=== PATIENT | male | born 1975 | race Caucasian/White ===

== ENCOUNTER 2023-10-29 23:06 | Inpatient (IN) | payer BC, SELFPAY ==
[2023-10-29] VITALS (18 sets, daily range): BP systolic 61–98; BP diastolic 34–77
--- NOTE | 2023-10-29 21:00 | ED.SKININJ ---
HPI-Injury
General
Chief Complaint: Skin Problem
Source: patient
Exam Limitations: altered mental status
Time Seen by Provider: 10/29/23 20:48
Nursing documentation reviewed up to this point in time: agreed with
History of Present Illness-Injury
Is this injury a work related problem?: No
Is pt an associate of [facility]/[place]?: No
Initial Injury comments:
48-year-old male presents with pain in his right foot fever apparently was out cutting wood a few days ago believes he was bitten by an animal when pressing on him he does not state it was an animal with fur/teeth but he does think he could have
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
He apparently drove his car to the emergency room entrance and had to be carried out by staff
Has had numerous kidney stones previously
Past History
Past History
ED Past Medical History: NIDDM
Social History
Tobacco: Non-smoker
Alcohol: None
Drug: None
Review of Systems
Review of Systems
All Other Systems: Not applicable
Constitutional: Reports fever, fatigue and chills
EENT: Reports no symptoms
Respiratory: Reports no symptoms
Cardiac: Reports no symptoms
ABD/GI: Reports no symptoms
: Reports no symptoms
Musculoskeletal: Reports muscle stiffness and edema
Skin: Reports rash
Neurological: Reports dizzy and weakness
Phy Exam
Physical Exam
Physical Exam:
Physical Exam
General: Ill-appearing male
Neck: Dry lips
Heart: Tachycardia
Lungs: Crackles at the base
Abdomen: Nontender
Neuro: alert and oriented. Confused
Skin: no rash
Psychiatric: Disheveled, cooperative
Extremities: Wound to the lateral portion of the right foot streaking cellulitic changes up the calf the calf is tender and warm
Course
Orders/Labs/Results
Orders:
Orders
10/29/23 20:50
C-Reactive Protein Urgent
Comment: ADD ON
Complete Blood Count/With Diff Urgent
Comprehensive Metabolic Panel Urgent
Creatine Phosphokinase Urgent
Comment: ADD ON
Erythrocyte Sed Rate Urgent
Comment: ADD ON
Lactic Acid Urgent
Blood Culture Urgent
EDISON Source: Blood/Venous
Specimen Description:
10/29/23 20:54
Piperacillin/Tazo 4.5 Gram [Zosyn] 4.5 gram in 100 ml IV NOW
10/29/23 20:55
Acetaminophen 1000MG/100Ml [Ofirmev] 1,000 mg in 100 ml IV ONCE
Acetaminophen IV Indication:: ED Narcotic Naive Pt-ONCE
CR Chest Single View Urgent
Reason For Exam: sepsis
10/29/23 20:56
CR Foot - Right Min 3 Views Urgent
Reason For Exam: swelling
Tib/Fib, Right 2 View [CR Leg Tibia/fibula Right 2 Vw] Urgent
Comment:
Reason For Exam: swelling
10/29/23 21:03
Tetanus/Diphth/Acelpertussis [Adacel] 0.5 ml IM .ONCE ONE
10/29/23 21:04
Blood Culture Urgent
EDISON Source: Blood/Venous
Specimen Description:
0.9% Sodium Chloride 1000 ml [Nss] 3,000 ml IV BOLUS
10/29/23 21:27
CT Abd/pel Without Iv Or Oral Stat
Comment:
Reason For Exam: arf sepsis
10/29/23 22:00
Clindamycin 900 mg/50 ml [Cleocin] 900 mg in 50 ml IV Q8H
Lactated Ringers [Lr] 1,000 ml IV 125 mls/hr
Vancomycin [Vancocin] 2,000 mg 0.9% Sodium Chloride 500 ml [Nss] 500 ml IV ONCE
10/29/23 22:03
Admit/Transfer Patient As Directed
Co-Sign Provider:
Level of Care: Inpatient admission
Assign to:: ICU
Physician / Group: Otoniel
Transfer to: ICU
Diagnosis: Septic Shock Cellulitis
Reason for Hospitalization: Septic Shock Cellulitis
Expected length of stay greater than two midnights?: Yes
ELOS- Estimated Length of Stay in days: 2
I certify the patient meets the requirements for IP care: Yes
PRN Pain Medication Management As Directed
May give lesser potent ordered pain med per pt: Yes
preference::
Protocol:: Medication orders for pain may be administered in a
manner that supports deferring to patient preference
when the pt is:
- Requesting an ordered lesser potent pain medication.
Least to most potent pain medications are defined
as: acetaminophen < NSAID < tramadol < opioids
(morphine, oxycodone, hydromorphone).
- Requesting a lesser dose of the same medication IF
ORDERED.
- Requesting a less intrusive route of administration
if both routes are prescribed by the provider (PO <
IV).
10/29/23 22:04
ABG [Arterial Blood Gas] Urgent
%Oxygen/Room Air: 2l
10/29/23 22:05
Code Status As Directed
Resuscitation Status: Full Code
10/29/23 22:06
PT/INR [Prothrombin Time] Stat
PTT Stat
10/29/23 22:08
Add On- LAB Urgent
Tests Added?: ESR, CPK, CRP
10/29/23 22:15
EKG [Electrocardiogram (*1)] Stat
Reason for Study: Other
Other Reason for Exam: hypotension/shock
NORepinephrine 4 MG/250 ML [Levophed] 4 mg in 250 ml IV PER PROTOCOL
Initial dose in mcg/min, then titrate:: 2
Titrate to keep:: SBP > 90 mmHg
Titrate by mcg/min:: 1-2 mcg/min
Frequency of titrations (minutes):: 5
Maximum dose in ICU in mcg/min:: 30
Maximum dose in IMU in mcg/min:: 8
Maximum dose in IVU in mcg/min:: 4
Begin to taper infusion when:: Remained at goal for 4hrs
Taper by mcg/min:: 1-2 mcg/min
Frequency of taper (minutes) if patient maintains goal:: 30
Taper to off?: Yes
If infusion off & no longer maintaining goal:: Contact Provider
10/29/23 22:16
Venous Doppler Lwr Ext Rt [US Periph Venous LOWER Ext RT] Routine
Comment:
Reason For Exam: swelling/pain
10/29/23 22:19
Hernandez Placement- Treatment ONCE
Reason for insertion: Stage 3 or 4 Ulcer
10/29/23 22:21
UA Reflex to Culture [Urinalysis Reflex To Culture] Stat
Hernandez Catheter [Catheter- Indwelling] As Directed
Reason for insertion: I&O's Critical Care
Assess insertion reason daily.Remove if no longer applicable: Yes
10/29/23 22:25
NEPHROLOGY CONSULT Routine
Consulting Provider: Ty Rose V.
Was physician already notified: Yes
Reason for consult: ARF/acidosis
10/29/23 22:30
Sterile Water For Inj [Sterile Water For Injection 1000 ml] 1,000 ml Sodium Bicarbonate 150 meq IV 200 mls/hr
10/29/23 22:35
Consult Notification Routine
Specialty to Notify: Infectious Disease
INFECTIOUS DISEASE CONSULT Routine
Consulting Provider: Wilmar Peterson
Was physician already notified: No
Reason for consult: septis shock - cellulitis +/-gu source
10/30/23 00:00
Lactate Level [Lactic Acid] ONCE
Abnormal Lab Results
10/29/23 10/29/23 10/29/23
20:50 22:04 22:06
WBC 21.8 H 10^3/uL
(4.8-10.8)
RBC 3.47 L 10^6/uL
(4.70-6.10)
Hgb 10.5 L g/dL
(13.0-18.0)
Hct 29.3 L %
(39.0-52.0)
Abs Immat Gran (auto) 2.2 H 10^3/uL
(0-0.05)
Absolute Neuts (auto) 18.0 H 10^3/uL
(1.4-6.5)
Absolute Lymphs (auto) 0.5 L 10^3/uL
(1.2-3.4)
Absolute Monos (auto) 1.1 H 10^3/uL
(0.1-0.6)
Immature Gran % 9.9 H %
(0-0.5)
Neutrophils % 82.7 H %
(42.2-75.2)
Lymphocytes % 2.2 L %
(20.5-51.1)
ESR 84 H mm/hour
(0-20)
PT 15.3 H Sec
(11.4-14.6)
APTT 39.1 H Sec
(23.4-35.0)
pH 7.31 L
(7.35-7.45)
pCO2 33 L mmHg
(35-48)
pO2 75 L mmHg
(83-108)
HCO3 16.6 L mmol/L
(21-28)
Sodium 125 L mmol/L
(135-145)
Chloride 96 L mmol/L
(98-107)
Carbon Dioxide 15 L mmol/L
(22-30)
BUN 86 H mg/dl
(9-20)
Creatinine 5.2 H* mg/dL
(0.7-1.3)
Glucose 143 H mg/dl
(70-99)
Lactic Acid 3.2 H mmol/L
(0.7-2.0)
Creatine Kinase 1024 H U/L
(55-170)
C-Reactive Protein > 270.00 H mg/L
(0.0-10.00)
Total Protein 5.9 L g/dl
(6.3-8.2)
Albumin 3.2 L g/dl
(3.5-5.0)
10/29/23 20:50
10/29/23 20:50
Vital Signs
Initial and Last Documented VS:
Initial Vital Signs
Temp Pulse Resp Pulse Ox
103 F H 107 30 91
10/29/23 20:34 10/29/23 20:34 10/29/23 20:34 10/29/23 20:34
Last Documented Vital Signs
Temp Pulse Resp BP Pulse Ox
97.7 F 104 19 61/44 93
10/29/23 22:10 10/29/23 22:57 10/29/23 22:57 10/29/23 23:00 10/29/23 22:57
MDM/Problems Addressed
Differential Diagnosis Includes:
Sepsis, septic shock, fasciitis, respiratory failure,
MDM/Problems Addressed:
Low blood pressure, fever
Chronic conditions affecting care: DM
Acute Exacerbation and/or Progression of Chronic Illness: DM
*Radiology
Radiology exam reviewed: preliminary read by ED provider
*Pulse Oximetry
Patient hypoxic: no
*Critical Care Note
Total Time (30-74mins, 75-104mins- exclusive of procedures): 45
Update Note
Update Note:
Update patient septic shock, acute renal failure leukocytosis cultures have been ordered has passed kidney stones previously
CT scan rule out obstructing stone
Update blood pressure now in the 90s 3 L infusing antibiotics have been ordered, reviewed with hospitalist and maintenance supervisor electrical will get ABG tonight follow closely
Blood pressure still low after 3 L of saline will start norepinephrine
ED Attending Note
-
Portions of this chart may have been created with voice recognition software.� Occasional wrong word or��sound alike� substitutions may have occurred due to the inherent limitations of voice recognition software.
Discharge Plan
Departure
Patient Disposition: Admit
Date of Disposition: 10/29/23
Time of Disposition: 22:03
Admit to: ICU
Presentation/result/management discussed w/ accepting MD/DO: Hospitalist
Patient with high blood pressure during this ER visit?: No
Condition: Critical
Covid-19: Not Applicable
Discharge Problem:
Septic shock
Interventions
Interventions:
*Risk Screen - Suicide Last Done: 10/29/23 20:34
*General Assessment Last Done: 10/29/23 20:34
*Neglect/Abuse Screening Last Done: 10/29/23 20:34
ED- Fall Risk Assessment Last Done: 10/29/23 21:40
*ED COVID-19 Vaccine History Last Done: 10/29/23 20:48
ED-Skin Assessment Last Done: 10/29/23 20:48
[2023-10-29 21:07] LABS: Hematocrit 29.3 % (39.0-52.0); Hemoglobin 10.5 g/dL (13.0-18.0); Mean Corp Hgb Conc. 35.8 g/dL (33.0-37.0); Mean Corpuscular Hgb 30.3 pg (27.0-31.0); Mean Corpuscular Volume 84.4 fL (80.0-94.0); Mean Platelet Volume 9.7 fL (7.4-10.4); Platelet Count 229 10^3/uL (130-400); Red Blood Cell Count 3.47 10^6/uL (4.70-6.10); Red Cell Dist. Width 13.8 % (11.5-14.5); White Blood Cell Count 21.8 10^3/uL (4.8-10.8)
[2023-10-29] MEDS: NSS 3000 IV (21:09)
[2023-10-29] MEDS: OFIRMEV 100 IV (21:09)
[2023-10-29] MEDS: ZOSYN 100 IV (21:09)
[2023-10-29 21:10] LABS: Lactic Acid 3.2 mmol/L (0.7-2.0)
[2023-10-29 21:15] LABS: % Basophils 0.3 % (0-2); % Immature Granulocytes 9.9 % (0-0.5); % Lymphocytes 2.2 % (20.5-51.1); % Monocytes 4.9 % (1.7-9.3); % Neutrophils 82.7 % (42.2-75.2); Absolute Basophils 0.1 10^3/uL (0-0.2); Absolute Immature Granulocytes 2.2 10^3/uL (0-0.05); Absolute Lymphocytes 0.5 10^3/uL (1.2-3.4); Absolute Monocytes 1.1 10^3/uL (0.1-0.6); Nucleated Red Blood Cells % 0 % (-)
[2023-10-29 21:21] LABS: ALT (SGPT) 24 U/L (0-50); AST (SGOT) 49 U/L (17-59); Albumin 3.2 g/dl (3.5-5.0); Alkaline Phosphatase 103 U/L (38-126); Blood Urea Nitrogen 86 mg/dl (9-20); Calcium 8.4 mg/dl (8.4-10.2); Carbon Dioxide 15 mmol/L (22-30); Chloride 96 mmol/L (98-107); Glucose 143 mg/dl (70-99); Potassium 4.2 mmol/L (3.5-5.1); Sodium 125 mmol/L (135-145); Total Bilirubin 1.2 mg/dl (0.2-1.3); Total Protein 5.9 g/dl (6.3-8.2); eGFR 12.84
[2023-10-29] MEDS: VANCOCIN 540 MG IV (22:01)
[2023-10-29] MEDS: ADACEL 0.5 ML IM (22:02)
[2023-10-29 22:11] LABS: B.E. -8.8 mmol/L; HCO3 16.6 mmol/L (21-28); O2 Saturation % 96.3 % (94-98); PCO2 33 mmHg (35-48); PO2 75 mmHg (83-108); pH 7.31 (7.35-7.45)
--- NOTE | 2023-10-29 22:14 | HPS.HSE ---
Family Physician
-
Family Physician:
Chief Complaint
-
Right Foot Swelling and Pain
History of Present Illness
48yo M with PMH Pre-DM, Cervicalgia, Frequent Nephrolithiasis, HTN who presents to ER with complaint of right leg swelling/pain/erythema. Pt states that on Monday he was doing outdoor work in his yard and thinks he got bitten by unknown insect. He
states following this he developped subject fever, diaphoresis, chills, and worsening swelling/pain/erythema of right forefoot (site of insect bite) that tracked up his medial thigh over the last few days. Pain 9/10 shooting in sensation. Denies hx
MRSA in past. Denies dizziness/LH, confusion, chest pain, palps, wheezing, cough, sob. He reports kidney stones being problematic about 3 months ago, currently denying flank pain but states he is chronically on oxycodone 10mg QID prn. Denies sick
contacts or recent viral illness.
Urologist: Dr. Lacey ?[facility]
ER course: Pt presents BP 72/38, HR 107, RR 30, T 103 in multiorgan system failure. WBC 21.8K. Na 125. BUN/Cr 86/5.2. CO2 15 (ABG pending). LA 3.2. Blood cultures x 2 ordered. CXR ordered and pending. CT a/p ordered and pending. UA with reflex
ordered and pending. S/P Vancomycin, Zosyn, 3LNS Bolus and initation of levophed in ER. Admission to ICU with nephrology and intensive care notified.
Medical History
Past Medical History
Past Medical History: Reports Other (Pre-DM, Cervicalgia, Frequent Nephrolithiasis, HTN)
Past Surgical History: Reports Other (Urologic surgery for kidney stone removal)
Social History
Tobacco: Non-smoker
Alcohol: None
Drug: None
Personal:
Living: With Family
Family History
Family History: Other (Mother age 69 with CAD s/p [place], HTN. Father 'healthy')
Allergies / Home Medications
Allergies reflects when Allergies were last updated in [employer].
Home Medications with original date entered in [employer]
Allergy/Medication List:
Allergies
Allergy/AdvReac Type Severity Reaction Status Date / Time
No Known Allergies Allergy Unverified 10/29/23 20:38
Home Medications
cyclobenzaprine 10 mg tablet 10 mg PO TID PRN neck spasm 10/29/23
olmesartan 20 mg-hydrochlorothiazide 12.5 mg tablet (Benicar HCT) 1 tab PO DAILY 10/29/23
oxycodone 10 mg tablet 10 mg PO Q6H PRN severe pain 10/29/23
tamsulosin 0.4 mg capsule (Flomax) 0.4 mg PO HS 10/29/23
Review of Systems
-
A 12 point ROS was completed and negative except as noted: Yes
Physical Exam
Vital Signs
Vital Signs
Temp Pulse Resp BP Pulse Ox
103 F H 102 16 76/46 93
10/29/23 20:34 10/29/23 21:30 10/29/23 21:30 10/29/23 21:30 10/29/23 21:40
Physical Exam
General: Morbidly Obese and Other (Ill appearing. Able to follow commands without difficulty. )
HEENT: NormoCephalic, Atraumatic and Other (Dry MM. Neck supple. No JVD)
Respiratory: Clear; No Wheezes, Rales or Rhonchi
Cardiac: S1/S2 and Regular Rhythm; No Murmur
GI: Soft, Non Tender, Non Distended and Normal Bowel Sounds; No Organomegaly
Rectal: Deferred by Provider
Genito-urinary: No costovertebral tender; No Hernandez
Musculoskeletal: No Clubbing, No Cyanosis and Other (RLE forefoot with small eschar and surroundin erythema tracking to medial thigh. 2+ pitting edema with TTP. )
Skin: No Rash
Neuro: Awake, Alert, Oriented, AO x 3 and Other (Mild confusion with delay in responses or truoble recalling history. )
Psych: Calm
Laboratory Results
-
10/29/23 20:50
10/29/23 20:50
Laboratory Results
pH 7.31 (7.35-7.45) L 10/29/23 22:04
pCO2 33 mmHg (35-48) L 10/29/23 22:04
pO2 75 mmHg (83-108) L 10/29/23 22:04
HCO3 16.6 mmol/L (21-28) L 10/29/23 22:04
Lactic Acid 3.2 mmol/L (0.7-2.0) H 10/29/23 20:50
Total Bilirubin 1.2 mg/dl (0.2-1.3) 10/29/23 20:50
AST 49 U/L (17-59) 10/29/23 20:50
ALT 24 U/L (0-50) 10/29/23 20:50
Alkaline Phosphatase 103 U/L (38-126) 10/29/23 20:50
Data Reviewed
-
Diagnostic Radiology: Image Personally Visualized and interpreted
CT Scan: Image Personally Visualized and interpreted
Lab Data: Labs Reviewed by me
Old Records: Reviewed
Impression/Plan
-
Septic Shock
- +4/4 SIRS (HR 107, RR 30, Tmax 103, WBC 21.8K). BP 72/38 on admission
- LA 3.2. Blood cultures and Urine cultures pending. MRSA swab
- CXR ordered stat and pending
- CT a/p ordered stat and pending
- XR RLE pending to r/o air. If present surgical consult will be obtained
- S/P Vanco/Zosyn in ER. Continue vanco/zosyn renally dosed. Add clindamycin given acuity
- Pt full code and agreeable for pressor support. Started on levophed, management as per ICU
- Check CRP/ESR/CPK
- Consult ICU
- Consult ID
RLE Cellulitis/Wound / RLE swelling
- Unclear whether sole etiology for above
- Follow up XR studies. Consider surgical eval
- Check CRP/ESR/CPK
- Obtain Venous duplex for completeness
Acute Renal Failure
High Anion Gap Metabolic Acidosis
Hyponatremia
- BUN/Cr 86/5.2. No hx CKD
- Bicarb 15
- Na 125, ~126-127 corrected for hyperglycemia
- CPK pending
- Case D/W Nephrology. Continue Bicarbonate gtt @ 200cc/hr
- Hernandez placed for critical I&O monitoring
- UA with reflex pending
- Follow up Stat CT a/p to asssess for pathology
- Trend BMP for goal 6-8 meq/24hr improvement
Hx Nephrolithiasis
- Follow up CT a/p
- Continue flomax
- Pt reports being on 'one additional medication' that he cannot recall
Hypotension Hx Hypertension
- Hx noted. Holding Benicar HCTZ 2/2 shock
- Obtain EKG
Pre-DM
- reports last a1c 6.4 3 weeks ago with pcp
- BG 143 on admission
- SSI/accuchecks
Chronic Pain/Cervicalgia
- Holding flexeril
- Prn dilaudid for RLE pain. Avoid renally cleared medications at this time.
Diet: NPO pending scans
DVT Ppx: Heparin [id number]
Code Status: Full
[2023-10-29 22:26] LABS: INR 1.23; PT 15.3 Sec (11.4-14.6)
[2023-10-29 22:27] LABS: APTT 39.1 Sec (23.4-35.0)
[2023-10-29 22:35] LABS: Creatine Phosphokinase 1024 U/L (55-170)
[2023-10-29 22:36] LABS: Erythrocyte Sed Rate 84 mm/hour (0-20)
[2023-10-29] MEDS: LEVOPHED 250 IV (22:58)
[2023-10-29 23:07] LABS: C-Reactive Protein > 270.00 mg/L (0.0-10.00)
--- NOTE | 2023-10-29 23:28 | W.PN.SEPSIS ---
Sepsis
Vital Signs
Temp Pulse Resp BP Pulse Ox
97.7 F 104 19 61/44 93
10/29/23 22:10 10/29/23 22:57 10/29/23 22:57 10/29/23 23:00 10/29/23 22:57
Physical Exam
Physical Exam:
A focused exam was performed after fluid resuscitation.
Capillary Refill
Bilateral Upper Extremity:
Kings Time: Less than 3 sec
Bilateral Lower Extremity:
Kings Time: Less than 3 sec
Pulse Evaluation
Bilateral Radial:
Pulse Evaluation: Present
Bilateral Dorsalis Pedis:
Pulse Evaluation: Present
[2023-10-29] MEDS: SODIUM BICARBONATE 1150 MEQ IV (23:38)
[2023-10-29] MEDS: CLEOCIN 50 IV (23:38)
[2023-10-29 23:46] LABS: Glucose - Point of Care 138 mg/dl (70-99)
[2023-10-30] VITALS (61 sets, daily range): BP systolic 69–157; BP diastolic 42–140; BMI 42.7
[2023-10-30] MEDS: HEPARIN 5000 UNITS SC ×3 (00:02→22:07)
[2023-10-30] MEDS: DILAUDID 1 MG IV ×6 (00:02→22:08)
[2023-10-30 00:19] LABS: ALT (SGPT) 20 U/L (0-50); AST (SGOT) 48 U/L (17-59); Albumin 2.5 g/dl (3.5-5.0); Alkaline Phosphatase 73 U/L (38-126); Blood Urea Nitrogen 80 mg/dl (9-20); Carbon Dioxide 15 mmol/L (22-30); Chloride 102 mmol/L (98-107); Glucose 121 mg/dl (70-99); Magnesium 1.9 mg/dl (1.6-2.3); Phosphorus 3.1 mg/dl (2.5-4.5); Potassium 3.7 mmol/L (3.5-5.1); Sodium 126 mmol/L (135-145); Total Protein 4.8 g/dl (6.3-8.2); eGFR 15.69
[2023-10-30 00:23] LABS: COVID-19 Antigen Negative (Negative)
[2023-10-30 00:30] LABS: Fibrinogen 762 MG/DL (199-459)
[2023-10-30 00:45] LABS: % Basophils 0.3 % (0-2); % Eosinophils 0.1 % (0-6); % Immature Granulocytes 12.3 % (0-0.5); % Lymphocytes 3.2 % (20.5-51.1); % Neutrophils 80.1 % (42.2-75.2); Absolute Basophils 0.1 10^3/uL (0-0.2); Absolute Immature Granulocytes 2.4 10^3/uL (0-0.05); Absolute Lymphocytes 0.6 10^3/uL (1.2-3.4); Absolute Monocytes 0.8 10^3/uL (0.1-0.6); Absolute Neutrophils 15.8 10^3/uL (1.4-6.5); Nucleated Red Blood Cells % 0 % (-)
[2023-10-30 00:46] LABS: Troponin I 0.051 ng/ml
[2023-10-30 01:23] LABS: Erythrocyte Sed Rate 71 mm/hour (0-20)
[2023-10-30 01:27] LABS: Hematocrit 25.4 % (39.0-52.0); Hemoglobin 9.2 g/dL (13.0-18.0); Mean Corp Hgb Conc. 36.2 g/dL (33.0-37.0); Mean Corpuscular Volume 85.5 fL (80.0-94.0); Mean Platelet Volume 9.6 fL (7.4-10.4); Platelet Count 196 10^3/uL (130-400); Red Blood Cell Count 2.97 10^6/uL (4.70-6.10); White Blood Cell Count 19.8 10^3/uL (4.8-10.8)
--- NOTE | 2023-10-30 01:31 | PTCARENOTE ---
Pt Aox3, drowsy, diaphoretic, Afebrile, NSR on monitor, distant heart sounds, Levophed infusing per protocol, Bicarb gtt @200ml/hr, Abx. +3 LE edema to right foot and ankle. Right lateral foot with open puncture wound, with small amounts serous
drainage, cleansed and covered, elevated foot. Otherwise skin intact. C/O pain in right foot 8/10 burning, PRN medication administered. 4L NC sats 94%, lungs are diminished. Obese abdomen, firm nontender. CT of right leg completed.
[2023-10-30 02:32] LABS: Lactic Acid 0.9 mmol/L (0.7-2.0)
[2023-10-30] MEDS: ZOSYN 50 IV ×2 (03:04→07:23)
[2023-10-30 04:14] LABS: B.E. -10.3 mmol/L; HCO3 16.2 mmol/L (21-28); O2 Saturation % 97.7 % (94-98); PCO2 37 mmHg (35-48); PO2 89 mmHg (83-108); pH 7.25 (7.35-7.45)
[2023-10-30 04:18] LABS: Urine Albumin Trace (Neg - Trace); Urine Bilirubin Negative (Negative); Urine Character Clear (Clear); Urine Color Yellow; Urine Glucose Negative (Negative); Urine Ketone Negative (Negative); Urine Leukocyte Negative (Negative); Urine Nitrite Negative (Negative); Urine Occult Blood 3+ (Negative); Urine Specific Gravity 1.015 (<1.030); Urine Urobilinogen Negative (Neg - 1+)
[2023-10-30 04:38] LABS: Urine Bacteria Moderate (Negative); Urine Squamous Cell 0-2 /LPF (Few)
[2023-10-30] MEDS: LEVOPHED 250 IV ×3 (04:39→20:47)
[2023-10-30 04:44] LABS: Hematocrit 31.5 % (39.0-52.0); Hemoglobin 10.9 g/dL (13.0-18.0); Mean Corp Hgb Conc. 34.6 g/dL (33.0-37.0); Mean Corpuscular Volume 89.5 fL (80.0-94.0); Mean Platelet Volume 9.7 fL (7.4-10.4); Platelet Count 217 10^3/uL (130-400); Red Blood Cell Count 3.52 10^6/uL (4.70-6.10); White Blood Cell Count 26.3 10^3/uL (4.8-10.8)
[2023-10-30 05:11] LABS: Blood Urea Nitrogen 81 mg/dl (9-20); Calcium 7.7 mg/dl (8.4-10.2); Carbon Dioxide 18 mmol/L (22-30); Chloride 98 mmol/L (98-107); Creatine Phosphokinase 1457 U/L (55-170); Estimated Creatinine Clearance 30 ml/min; Glucose 172 mg/dl (70-99); Magnesium 2.3 mg/dl (1.6-2.3); Phosphorus 5.2 mg/dl (2.5-4.5); Potassium 4.4 mmol/L (3.5-5.1); Sodium 129 mmol/L (135-145); eGFR 17.08
[2023-10-30 05:21] LABS: Troponin I 0.035 ng/ml
[2023-10-30] MEDS: SODIUM BICARBONATE 1150 MEQ IV ×2 (05:27→11:13)
[2023-10-30 05:38] LABS: TSH 0.63 uIU/ml (0.47-4.68)
[2023-10-30] MEDS: CLEOCIN 50 IV ×3 (05:51→21:34)
--- NOTE | 2023-10-30 06:41 | PTCARENOTE ---
Pt Aox3, drowsy, C/o pain in right foot, PRN medication given. NSR on monitor, Levophed for MAP > 65. Pt c/o trouble urinating, bladder scan 800cc, straight cath for 1300cc. Trops trending down, creatinine trending down.
[2023-10-30 07:33] LABS: Glucose - Point of Care 202 mg/dl (70-99)
--- NOTE | 2023-10-30 07:46 | W.PN.HOSP.TC ---
Today's Communication/Plan
-
ID consult
Nephrology consult
Continue IV fluid support
Await reading for CT scan, Doppler ultrasound
Assessment / Plan
Assessment / Plan
Gen-AAOx3, NAD, morbid obesity
HEENT-NC, AT, anicteric, clear oral mm
Neck-supple
CV-reg, no M, +S1/S2
Lungs-clear B/L
Abd-soft, NT, ND
Ext-diffuse right lower extremity edema
Musculoskeletal-no cyanosis, clubbing
Skin-warm and dry, right lower extremity erythema, right foot dorsal wound with purulence
Neuro-grossly non-focal
Psych-calm, cooperative
Septic shock -suspected skin and soft tissue infection of right lower extremity. Unclear if he was bitten by an insect or snake. Patient did not see the organism that bit him. He was wearing flip-flops with long pants in the yard last Monday
when the event occurred. Hemodynamically improved on Levophed and vasopressin infusion. Currently in ICU. Consult lead java developer architect. Await cultures. Bandemia and leukocytosis noted. Afebrile this morning. Lactic acidosis improved. Currently on IV
vancomycin, Zosyn, clindamycin. Administered Tdap vaccine in the emergency room.
CT of right lower extremity pending. Doppler ultrasound pending. Abdominal/pelvic CT scan unremarkable.
GIORGIO -creatinine 5.2 on admission, 4.1 this morning. Continue IV fluids, currently sodium bicarbonate infusion for metabolic acidosis. Anion gap of 13 today.
Hyponatremia -sodium 125 on arrival, 129 this morning.
Normocytic anemia -unknown acuity or etiology. No evidence of hemolysis. Monitor for now. Baseline unknown.
Acute nontraumatic rhabdomyolysis -CPK 1457, continue IV fluids.
Troponin elevation -suspect acute nonischemic myocardial injury due to critical illness, septic shock.
Essential hypertension -hold antihypertensives for shock.
Chronic low back pain/chronic opiate dependence
Hx nephrolithiasis -history of stenting, nephrostomy in the past.
Diverticulosis -noted on abdominal CT.
Possible mild chronic T8/T9 partial vertebral compression fractures -noted on CT.
Morbid obesity due to excess calories
Full code
55 minutes spent in reviewing data, interviewing patient, examining patient, speaking with other staff.
Anticipated Discharge: > 48 hours
Subjective/Interval History
-
Date of Service: October 30, 2023
Patient seen and examined. No complaints currently.
Objective Data
-
Labs:
Laboratory Results
10/29/23 10/29/23 10/29/23
20:50 22:04 22:06
WBC 21.8 H
Hgb 10.5 L
Hct 29.3 L
Plt Count 229
PT 15.3 H
INR 1.23
APTT 39.1 H
HCO3 16.6 L
Sodium 125 L
Potassium 4.2
Chloride 96 L
Carbon Dioxide 15 L
BUN 86 H
Creatinine 5.2 H*
Glucose 143 H
Calcium 8.4
Total Bilirubin 1.2
AST 49
ALT 24
Alkaline Phosphatase 103
10/29/23 10/30/23 10/30/23
23:34 03:45 04:21
WBC 19.8 H 26.3 H
Hgb 9.2 L 10.9 L
Hct 25.4 L 31.5 L
Plt Count 196 217
PT
INR
APTT
HCO3 16.2 L
Sodium 126 L 129 L
Potassium 3.7 4.4
Chloride 102 98
Carbon Dioxide 15 L 18 L
BUN 80 H 81 H
Creatinine 4.4 H* 4.1 H*
Glucose 121 H 172 H
Calcium 7.0 L 7.7 L
Total Bilirubin 1.0
AST 48
ALT 20
Alkaline Phosphatase 73
Vital Signs:
Vital Signs
Temp Pulse Resp BP Pulse Ox
98.5 F 82 11 83/52 96
10/30/23 07:28 10/30/23 05:00 10/30/23 05:00 10/30/23 05:00 10/30/23 05:00
I&O
10/29/23 10/30/23 10/31/23
06:59 06:59 06:59
Intake Total 1715.2 / 2025.2 310 / 310
Output Total 1600 / 1600
Balance 115.2 / 425.2 310 / 310
Review of Systems
-
History Source: Patient
All other systems: Reviewed and negative
[2023-10-30] MEDS: PITRESSIN 100 IV (07:51)
[2023-10-30] MEDS: TYLENOL 650 MG PO ×2 (08:01→20:47)
--- NOTE | 2023-10-30 08:15 | PTCARENOTE ---
Received pt @ change of shift. Drowsy, awakens to verbal stim; oriented x3. C/O mod R foot pain- medicated w prn- see MAR. THANH, RLE weakness d/t cellulitis. SR on monitor. SPo2 96% on 4LNC. +BS abd round/obese/firm. Maintained on NPO ex
meds/sips/chips. Difficulty urinating overnight, BS/SC prn. R lower leg/foot +3 edema/hot/red. R foot dressing redressed. #18 R AC w levo gtt infusing and vaso gtt initiated-see flow sheet. #20 L FA w bicarb gtt infusing @ 200mL/hr. Pt.
instructed on how to report care concerns and call sun placed w in reach.
[2023-10-30 08:35] LABS: Amphetamines Negative (Negative); Barbiturates Negative (Negative); Benzodiazepines Negative (Negative); Buprenorphine Negative (Negative); Cocaine Negative (Negative); Marijuana Negative (Negative); Methadone Negative (Negative); Methamphetamines Negative (Negative); Opiates Positive (Negative); Phencyclidine Negative (Negative); Tricyclic Antidepressants Positive (Negative)
--- NOTE | 2023-10-30 08:37 | CON.INTV ---
Consultation
Consultation Request
Date/Time Consultation Requested: 10/29/20232325
Date/Time Consultation Performed: 10/30/2023831
Requesting Provider: Dr. Frederick
Performing Provider: Dr. Tompkins
Reason for Consultation: Septic shock
Medical History
-
Chief Complaint: Right foot pain + swelling
History of Present Illness:
48-year-old male non-smoker with past medical history of prediabetes, cervicalgia, hypertension and recurrent nephrolithiasis presents with swollen right foot that is painful. He states that he had a tree cut down in his backyard on this past
, and walked back to see the progress and believes something bit him. He has had worsening right foot swelling and pain since then. In the ER he was febrile to 103 �F, tachycardic to 107, breathing at 20-30 breaths/min, BP 72/38, and
saturating 91% on room air. Labs showed leukocytosis to 19.8, Hb 9.2, ESR 71, ABG with pH 7.31, pCO2 33, serum sodium 126, creatinine 4.4, BUN 80, serum bicarbonate 15, lactate 3.2, CK10 24, CRP >270, albumin 2.5, with negative COVID-19 antigen and
negative Lyme screen. Blood cultures were collected, with CXR showing low lung volumes without pneumonia. Right foot/tib�fib XR showed no acute osseous abnormality or foreign body. CT abdomen/pelvis showed no obstructive uropathy,
hepatosplenomegaly, descending colon/sigmoid diverticulosis and suspected old T8-[address] fractures[address] right lower extremity showed no acute osseous abnormality with diffuse soft tissue swelling with skin thickening along
the dorsum of the foot and lateral ankle with no soft tissue gas, foreign body or focal fluid collection. RLE duplex ultrasound was negative for DVT. He was given 3 L of NS 0.9%, Ofirmev, tetanus shot, Zosyn/IV vancomycin and started on Levophed
due to persistent hypotension with SBP in the 60s�70s. Patient transferred to the ICU for further care, and critical care services consulted for additional management/recommendations.
Pt seen and evaluated this AM. He continues to have marked RLE leg/foot pain. He is on levophed at 12mcg/min and vasopressin at 0.03 units/min. BP 114/69, HR 108, SpO2 97% on 2L/min NC. He is producing urine via Hernandez. He is very anxious. He
otherwise is awake, answering questions appropriately, and denies CP, JACKSON, abd pain, N/V/f/c.
PMHx: Cervicalgia, prediabetes, recurrent nephrolithiasis, hypertension
PSHx: Kidney stone removal
Past Medical History
Past Medical History: Other (above as per HPI)
Past Surgical History: Other (Above as per HPI)
Social History
Tobacco: Non-smoker
Alcohol: None
Drug: None
Personal:
Living: With Family
Family History
Family History: CAD (Mother) and Hypertension (Mother)
Allergies / Home Medications
Allergies
Allergy/AdvReac Type Severity Reaction Status Date / Time
No Known Allergies Allergy Unverified 10/29/23 20:38
Home Medications
�Medication �Instructions �Recorded �Confirmed �Last Taken �Type
cyclobenzaprine 10 mg tablet 10 mg PO TID PRN neck spasm 10/29/23 10/29/23 10/28/23 History
olmesartan 20 1 tab PO DAILY 10/29/23 10/29/23 10/28/23 History
mg-hydrochlorothiazide 12.5 mg
tablet (Benicar HCT)
oxycodone 10 mg tablet 10 mg PO Q6H PRN severe pain 10/29/23 10/29/23 10/29/23 History
tamsulosin 0.4 mg capsule (Flomax) 0.4 mg PO HS 10/29/23 10/29/23 10/28/23 History
Review of Systems
-
History Source: Patient
All other systems: Negative unless noted
Vitals / Labs / Diagnostic Testing
Vital Signs
Temp Pulse Resp BP Pulse Ox
98.5 F 82 11 83/52 96
10/30/23 07:28 10/30/23 05:00 10/30/23 05:00 10/30/23 05:00 10/30/23 08:07
Lab Data
10/30/23 04:21
10/30/23 04:21
Laboratory Results
10/29/23 10/29/23 10/30/23
22:04 22:06 03:45
PT 15.3 H
INR 1.23
APTT 39.1 H
pH 7.31 L 7.25 L
pCO2 33 L 37
pO2 75 L 89
HCO3 16.6 L 16.2 L
O2 Delivery Level
Diagnostic Testing:
Physical Exam
-
HEENT: Normocephalic and Anicteric
Cardiovascular: S1/S2 and Peripheral Edema (+2 right lower extremity edema)
Respiratory: Wheeze (negative), Rales (negative), Rhonchi (negative) and Non-Labored Respirations
GI: Soft and Distended (Abdominal obesity)
Neurology: Awake, Alert and Tremors (Negative)
Skin: Warm, Dry and Other (Right lower extremity foot with blistering along dorso-lateral surface, with lesions on dorsum of foot + distal tibia; R-foot erythema and edema)
General: Respiratory Distress (Negative), Pain (Right lower extremity/foot), Fever, Chills (negative) and Other (Anxious appearing and in pain)
Assessment
-
Assessment: 48-year-old male non-smoker with past medical history of prediabetes, cervicalgia, hypertension and recurrent nephrolithiasis presents with swollen right foot that is painful. He states that he had a tree cut down in his backyard on
this past , and walked back to see the progress and believes something bit him. He has had worsening right foot swelling and pain since then. In the ER he was febrile to 103 �F, tachycardic to 107, breathing at 20-30 breaths/min, BP 72/38,
and saturating 91% on room air. Labs showed leukocytosis to 19.8, Hb 9.2, ESR 71, ABG with pH 7.31, pCO2 33, serum sodium 126, creatinine 4.4, BUN 80, serum bicarbonate 15, lactate 3.2, CK10 24, CRP >270, albumin 2.5, with negative COVID-19 antigen
and negative Lyme screen. Blood cultures were collected, with CXR showing low lung volumes without pneumonia. Right foot/tib�fib XR showed no acute osseous abnormality or foreign body. CT abdomen/pelvis showed no obstructive uropathy,
hepatosplenomegaly, descending colon/sigmoid diverticulosis and suspected old T8-[address] fractures[address] right lower extremity showed no acute osseous abnormality with diffuse soft tissue swelling with skin thickening along
the dorsum of the foot and lateral ankle with no soft tissue gas, foreign body or focal fluid collection. RLE duplex ultrasound was negative for DVT. He was given 3 L of NS 0.9%, Ofirmev, tetanus shot, Zosyn/IV vancomycin and started on Levophed
due to persistent hypotension with SBP in the 60s�70s. Patient transferred to the ICU for further care, and critical care services consulted for additional management/recommendations.
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
Impression:
#Circulatory shock likely due to sepsis from RLE cellulitis; his pain is out of proportion to exam which is suspicious for underlying soft tissue infection vs necrotizing fasciitis
#GIORGIO
#Acute respiratory failure with hypoxia likely due to sepsis with acute organ dysfunction
#Anemia
#Metabolic acidosis with increased anion gap
#Hyponatremia likely due to prerenal GIORGIO
#Rhabdomyolysis
#Elevated troponin (peaked at 0.051 on 10/30/2023)
#Lactic acidosis - normalized
#Hepatosplenomegaly
#Obesity (BMI: 42.7)
#Prediabetes mellitus (HbA1c: 6.3) with hyperglycemia
Plan:
- Continue antibiotics currently on IV vancomycin + Zosyn
- ID on board and recs appreciated
- Recommend surgical evaluation for debridement with washout, cultures and evaluation for necrotizing fasciitis
- Pain control
- Patient is prescribed prn oxycodone at home; I will restart this at 5 mg q6hr
- Wound care
- Continue vasopressors with Levophed and vasopressin and wean as tolerated to maintain MAP >65
- Maintain SpO2 >90-94% with supplemental oxygen and wean as tolerated
- prn nebulized bronchodilators
- Trend creatinine
- Renally dose all medication/ABx
- Nephrology on board, recommendations appreciated
- Continue with bicarb infusion, currently at 200cc/hr
- Trend serum HCO3 level and blood gas to assess pH
- Trend CPK
- Transfuse if needed to keep Hb >7g/dL, plt>50k
- Replete electrolytes with K>4, Mg>2
- Maintain euglycemia with goal BG 140-180 with moderate resistance ISS
- Incentive spirometer
- DVT ppx
Critical care statement: A total of 41 minutes of critical care time was provided for this patient today. This includes management of unstable vital signs, evaluation of the patient at bedside, reviewing the patient's pertinent medical records
including radiographs, microbiology, laboratory evaluations, and discussion with primary team, consultants, pharmacy, nutrition, physical therapy, case management, charge nurse, critical care nursing, and respiratory therapy.
Data:
CT right lower extremity 10/30/2023:
No acute osseous abnormality.
Diffuse soft tissue swelling throughout the lower extremity with skin thickening along the dorsum of the foot and lateral ankle likely representing cellulitis. No soft tissue gas, radiopaque foreign body, or focal fluid collection.
[2023-10-30 08:45] LABS: Fentanyl, Urine Negative (Negative)
--- NOTE | 2023-10-30 09:23 | PHA.VAN.IN ---
Addendum entered and electronically signed by Coral Conley [facility] 10/30/23 19:27:
Random level = 11.1. Will re-dose vancomycin 1500mg
Addendum entered and electronically signed by Katherine Yang [facility] 10/30/23 16:02:
Vanc random not yet returned. Discussed with chem lab and having difficulties with analyzer - might be available in about another hour.
Repeat random level pre-emptively ordered for AM labs
Original Note:
Assessment
- Assessment
Renal Function: Unknown baseline (GIORGIO SCR 5.2-->4.1)
Maximum Temperature: 103 F - ORAL - 10/28 20:34
Concomitant Antimicrobials: piperacillin/tazobactam, clindamycin
Receiving Norepinephrine and Vasopressin
Plan
- Plan
Initial / Loading Dose: 2000mg - 10/28 22:01
Maintenance Regimen: dosing by level
Monitoring: random today at 1200 to assess if additional dosing required
Pharmacokinetics Vancomycin I
- -
Patient Age: 48
Patient Sex: Male
Vancomycin Day #: 1
Indication: Skin And Soft Tissue
Requesting Provider: Dr. Doe Frederick
Pertinent Antimicrobial Allergies:
NKDA
Height / Weight:
Height 5 ft 10 in
Actual Weight 135.1 kg
Pertinent Past Medical History: BMI ~43
- Vital Signs / Lab Results
Temp Pulse Resp BP Pulse Ox
98.5 F 82 11 83/52 96
10/30/23 07:28 10/30/23 05:00 10/30/23 05:00 10/30/23 05:00 10/30/23 08:07
Lab Results - Hematology
10/29/23 10/29/23 10/30/23
20:50 23:34 04:21
WBC 21.8 H 19.8 H 26.3 H
Lab Results - Chemistry
10/29/23 10/29/23 10/30/23
20:50 23:34 04:21
BUN 86 H 80 H 81 H
Creatinine 5.2 H* 4.4 H* 4.1 H*
Estimated Creat Clear 30
Albumin 3.2 L 2.5 L
10/29/23 10/30/23
20:50 02:05
Lactic Acid 3.2 H 0.9
Lab Results - Urine
10/30/23
04:06
Urine Nitrite (Reflex) Negative
Leukocyte Esterase Rfl Negative
Urine WBC (Reflex) 3-5
Ur Squamous Epith Cells 0-2
Urine Bacteria (Reflex) Moderate A
--- NOTE | 2023-10-30 09:32 | W.PN.UPDATE ---
Update Note
Progress Note Update
HPI:
Mr Rojas is a 48 year old male with history notable for recurrent nephrolithiasis, chronic pain on oxycodone 10 mg QID PRN, class III obesity. He is not known to be diabetic. He presented to the ER on 10/28 for right leg swelling, pain and
erythema that began on 10/23 while doing yard work, believes he was bitten/stung by an insect. Reports later that same day with markedly increased pain, erythema, swelling in his foot. He tells me he was having fevers and chills at that point as
well. Called his and said he thought he needed to go to the ER, she discouraged the idea and he decided not to go. He felt poorly enough that he stopped eating and drinking that day. Did not seek medical care. felt some improvement
and worked a double shift. Then again felt poorly with progressive redness, swelling tenderness, anorexia until he presented here when he progressed to subjective fevers, chills, sweats and increasing pain and erythema tracking up the medial thigh
along with increasing pain. No: chest pain, palpitations, cough or shortness of breath. Of note although he richa
In the ER patient was found to have unstable vitals with BP 72/38, HR 107, RR 30, T 103.0 orally. He was bolused 3L NS and levophed was started. Labs were remarkable for WBC 21.8, hgb 10.5, plt 229, L shift, no eos on the diff, esr 84, Na 125,
BUN 86 Cr 5.2 (unknown baseline). CO2 15, pH 7/3, PCO2 33, pO2 75, HCO3 16, Ca initially 8.2 then 7.0 uncorrected LA 3.2 now down to 0.9. T bili 1.2, ast 49, alt 24, alk phos 103, ck 1024, crp >270, trop 0.05, ua Blood cultures x 2 ordered. CXR
ordered and pending. CT a/p ordered and pending. UA with reflex ordered and pending. S/P Vancomycin, Zosyn, 3LNS Bolus and initiation of Levophed in ER and later with the addition of vasopressin. Patient initially started on vancomycin, zosyn and
clindamycin. Givne tdap in the ER. Admitted to ICU. Since then norepi dose peaked at 16 mcg/min overnight, now down to 0.8, remains on vasopressin, WBC has increased to 26.3, hgb 10.9, plt 217, L shift has persisted, esr was repeated and 71, pt
15, inr 1.2, fibrinogen 760, abg this am pH 7.25, cod 37, po2 89, hco3 16, Na now 129, cr 4.1, repeat LFTS are planned this afternoon, repeat CK now 1457, UDS + opiated, oxy, tricyclics, lyme serology pending, covid ag neg, CT leg without contrast:
Diffuse soft tissue swelling throughout the lower extremity with skin thickening along the dorsum of the foot and lateral ankle likely representing cellulitis. No soft tissue gas, radiopaque foreign body, or focal fluid collection, a peripheral
vascular US has been done and the read is pending, CT a/p without contrast: no renal obstruction, HSM and diverticulosis noted, tib/fib xray, and foot xray: no foreign body, CXR: low lung volumes no infiltrates on my read, blood cultures x2 are in
progress, a mrsa screen is in progress, urine culture is pending
PE:
Gen: nontoxic, awake and alert
CV: S1/S2 no murmurs, gallops or rubs
Pulm: CTA bilaterally
Ext: Right lower extremity swollen 1+ edema, mildly erythematous, streaky lymphangitic spread - pink, no tender inguinal lymph nodes, bullae and bruising on the lateral aspect of the foot; small wound on the dorsal foot, there is a chronic raised,
dark scar that patient reports is unchanged. No crepitus Pain is not out of proportion. Area is tender.
Labs:
most notable for
WBC 26
hgb 10
Cr 4.1 crcl 30
na 129
a1c 6.3
CK now 1457
A&P
48 year old male with history relevant for chronic pain on a relatively high dose of oxycodone, obesity chronically presenting for severe pain, redness, swelling, tenderness in the RLE progressing over about a week, in shock. Physical exam without
crepitus or pain out of proportion to physical findings but with notable swelling. Pain is
Septic Shock
Suspected Necrotizing fascitis
MSOF
Rhabdomyolysis - progressive
GIORGIO
Class III Obesity
- blood cultures x2 are in progress - no growth to date
- CT leg without soft tissue gas
- elevated CK concerning for muscluar involvement
- requested surgical consultation with concern for possible necrotizing fasciitis - patient may benefit from washout/cultures
- agree with clindamycin at present dose
- agree with vancomycin - appreciate pharmacy assistance with dosing
- switch zosyn to meropenem 500 mg IV q8hrs
- patient is critically ill with some interval improvement in pressor requirements
- discussed with Dr Briones surgery and Dr Turner randall same day - appreciate their input
- follow clinically
[2023-10-30 10:56] LABS: Glycohemoglobin (HgbA1c) 6.3 % (4.0-5.6)
--- NOTE | 2023-10-30 11:00 | PTCARENOTE ---
Pt. bladder scan'd for 1015mL. Inserted Hernandez catheter per orders and drained 1450 urine initially. Vaso gtt remains on; levo gtt tapered per orders- see flow sheet. Weaned to 2LNC, tolerating wean. C/O severe R foot pain- medicated w PRN- see
MAR. Remains bedrest w call sun in reach.
--- NOTE | 2023-10-30 11:45 | WOUNDNOTE ---
WON RN note: Patient admitted with septic shock.
See H&P for complete history.
PMH:NIDDM, kidney stones removal.
Wound Location and type/assessment: Patient admitted with: R dorsal foot full thickness ulcer with lateral foot blister and evolving bruising/edema. Patient states he was standing by a wood pile helping a friend clean up a fallen tree. Patient
thinks he was bitten by a bug or something else, did not see what it was. Dr. Murphy on consult, reviewed the above with her and medical student, approved local wound care and Sudhakar wrap as tolerated. Assessed foot later on along with Dr. Bowles
and DISPATCHER SERVICE Stephen, concern for necrotizing fasciitis. Plan is for I&D in OR today per Dr. Bowles, wound cultures to be done in OR.
Appetite: NPO.
Pressure redistribution devices in place: [facility]. Leg elevated with pillows.
Plan: Local wound care done, held off on compression per Dr. Gardner, for OR later today. Will follow peripherally and assist surgical team as needed. Updated nurse, and care plan, further wound care orders per Dr. Gardner.
Note to case management of equipment requested for discharge: TBD
Recommend follow up with surgeon.
--- NOTE | 2023-10-30 12:37 | CON.GS ---
Addendum entered and electronically signed by Markel Bowles MD 10/30/23 13:29:
I saw and examined the patient independently.
The Printing Machinist's note was reviewed and I agree with the note, assessment and plan except where noted below.
Comment: This is a 48-year-old male prediabetic, who presents with a 6-week history of worsening right foot pain and edema in the setting of some tree work around his house being done though he cannot recall acute injury to his foot during the
process. He states that the wound has been getting worse and his asked him to come into the hospital sooner but he thought it would get better on its own. There is significant swelling on the right lower extremity with erythema or reaching up
to the inner medial thigh. There is no crepitus or dishwater colored fluid or discharge. There is a fairly significant blister to the right lateral aspect of the foot and significant tenderness over the forefoot. He is febrile, tachycardic, in
renal failure and has a leukocytosis to 26,000. No lactate. He has been started on clindamycin and meropenem per infectious disease.
The patient at the very least has a necrotizing soft tissue infection, though necrotizing fasciitis cannot be ruled out at this time. He did have a CT scan which was fairly unremarkable but clinically he has sepsis.
Will plan for operative debridement today.
N.p.o., IV fluids, continue IV antibiotics.
Risks/Benefits/Alternatives, expected postoperative course and possible complications (bleeding, infection, injury to surrounding structures, acute/chronic pain) discussed at length. Patient wishes to proceed with surgery. All questions answered.
Consent obtained.
I spent roughly 60 minutes in total for the care of this patient today including direct patient care and counseling, reviewing labs, imaging, coordination of care, as well as documentation
Original Note:
Consultation
-
Date/Time Consultation Requested: 10/30/23 1129
Requesting Provider: Jeffrey
Reason for Consultation: possible nech fash RLE
Medical History
-
Chief Complaint: right foot pain
History of Present Illness:
Mr Rojas is a 48 yo male with a history of pre-diabetes (A1c is 6.3) and renal calculi with ureteroscopy in the past who notes a 6 day history of right foot pain and worsening edema with erythema. He notes that there was some tree work being done at
his house around the time symptoms started and he did assist with clean up but does not recall injuring his foot in the process. The right foot is edematous with a wound to the dorsum of the foot with erythema ascending up to the groin. There is
pooling of fluid/blood at the lateral malleolus with purple tissue noted dependently. The wound itself is crusted and without active drainage. He notes significant pain with any palpation to the foot itself but no pain to the thigh or calf with
palpation. Febrile to 103 last night with low grade temp currently to 99.6.
Past Medical History
Past Medical History: HTN, NIDDM (Pre-diabetic) and Other (Cervicalgia, nephrolithiasis)
Past Surgical History: Urological (ureteroscopy for calculi)
Social History
Tobacco: Non-Smoker
Personal:
Living: With Family
Family History
Family History: Reviewed & Not Pertinent and CAD (mother)
Allergies / Home Medications
Allergy/AdvReac Type Severity Reaction Status Date / Time
No Known Allergies Allergy Unverified 10/29/23 20:38
�Medication �Instructions �Recorded �Confirmed �Type
cyclobenzaprine 10 mg tablet 10 mg PO TID PRN neck spasm 10/29/23 10/29/23 History
olmesartan 20 1 tab PO DAILY 10/29/23 10/29/23 History
mg-hydrochlorothiazide 12.5 mg
tablet (Benicar HCT)
oxycodone 10 mg tablet 10 mg PO Q6H PRN severe pain 10/29/23 10/29/23 History
tamsulosin 0.4 mg capsule (Flomax) 0.4 mg PO HS 10/29/23 10/29/23 History
Review of Systems
-
History Source: Patient
All other systems: Negative unless noted
A 10 point review of systems was completed, and was negative except as per HPI.
Physical Exam
Vital Signs
Temp Pulse Resp BP Pulse Ox
99.6 F 91 11 117/74 94
10/30/23 11:00 10/30/23 11:00 10/30/23 11:00 10/30/23 11:00 10/30/23 11:00
10/29/23 10/30/23 10/31/23
06:59 06:59 06:59
Actual Weight 135.1 kg
Body Mass Index (BMI) 42.7
Lab Results
10/30/23 04:21
WBC 26.3 10^3/uL (4.8-10.8) H 10/30/23 04:21
Hgb 10.9 g/dL (13.0-18.0) L 10/30/23 04:21
Hct 31.5 % (39.0-52.0) L 10/30/23 04:21
Plt Count 217 10^3/uL (130-400) 10/30/23 04:21
Abs Immat Gran (auto) 2.4 10^3/uL (0-0.05) H 10/29/23 23:34
Neutrophils % 80.1 % (42.2-75.2) H 10/29/23 23:34
Physical Exam
General: Other (Ill appearing); Negative Comfortable
HEENT: Normocephalic and Anicteric
Respiratory: Non Labored Respirations
GI: Soft and Obese
Skin: Warm and Other (Ascending erythema from the right foot to the groin. Edema up to the mid calf. Wound to dorsum of right foot with crusting. Lateral malleolus into heel with pooling blood/purple tissue)
Neuro: Awake, Alert and AO x 3
Data Reviewed
-
CT Scan: Image Personally Visualized and interpreted, Report Reviewed by me, Discussed with Physician, Discussed with Nurse and Discussed with Patient
Labs: Labs Reviewed by me, Discussed with Physician and Discussed with Patient
Assessment / Plan
-
48 yo prediabetic male (a1c 6.3) presenting with pain/edema to RLE beginning on 10/24/23 after doing yard work although does not recall an injury at the time. Edema to foot and calf with crusted wound to dorsum of foot and ascending erythema to groin
with purplish black tissue to lateral ankle.
Currently in ICU for management of metabolic acidosis and sepsis. CRP >270 with rising WBC counts overnight (21.8-26.3) despite antibiotics. Metabolic acidosis persists and worsening (pH 7.31 to 7.25) currently on bicarb drip. Febrile to 103 last
night, now temp of 99.6. Hypotension necessitating IV pressors with levophed.
CT with IV contrast of the extremity with diffuse soft tissue swelling throughout the lower extremity with skin thickening along the dorsum of the foot and lateral ankle. No soft tissue gas, radiopaque foreign body, or focal fluid collection.
Exam and clinical deterioration concerning for necrotizing skin infection
--NPO for OR today for excision and debridement of the right foot
--Wound care following with us
--ABX as per ID
--Medical management as per ICU team
[2023-10-30 12:44] LABS: Glucose - Point of Care 154 mg/dl (70-99)
--- NOTE | 2023-10-30 13:00 | CON.ID ---
Addendum entered and electronically signed by Oanh Murphy MD 10/30/23 16:05:
HPI:
Mr Rojas is a 48 year old male with history notable for recurrent nephrolithiasis, chronic pain on oxycodone 10 mg QID PRN, class III obesity. He is not known to be diabetic. He presented to the ER on 10/28 for right leg swelling, pain and
erythema that began on 10/23 while doing yard work, believes he was bitten/stung by an insect. Reports later that same day with markedly increased pain, erythema, swelling in his foot. He tells me he was having fevers and chills at that point as
well. Called his and said he thought he needed to go to the ER, she discouraged the idea and he decided not to go. He felt poorly enough that he stopped eating and drinking that day. Did not seek medical care. felt some improvement
and worked a double shift. Then again felt poorly with progressive redness, swelling tenderness, anorexia until he presented here when he progressed to subjective fevers, chills, sweats and increasing pain and erythema tracking up the medial thigh
along with increasing pain. No: chest pain, palpitations, cough or shortness of breath. Of note although he richa
In the ER patient was found to have unstable vitals with BP 72/38, HR 107, RR 30, T 103.0 orally. He was bolused 3L NS and levophed was started. Labs were remarkable for WBC 21.8, hgb 10.5, plt 229, L shift, no eos on the diff, esr 84, Na 125,
BUN 86 Cr 5.2 (unknown baseline). CO2 15, pH 7/3, PCO2 33, pO2 75, HCO3 16, Ca initially 8.2 then 7.0 uncorrected LA 3.2 now down to 0.9. T bili 1.2, ast 49, alt 24, alk phos 103, ck 1024, crp >270, trop 0.05, ua Blood cultures x 2 ordered. CXR
ordered and pending. CT a/p ordered and pending. UA with reflex ordered and pending. S/P Vancomycin, Zosyn, 3LNS Bolus and initiation of Levophed in ER and later with the addition of vasopressin. Patient initially started on vancomycin, zosyn and
clindamycin. Givne tdap in the ER. Admitted to ICU. Since then norepi dose peaked at 16 mcg/min overnight, now down to 0.8, remains on vasopressin, WBC has increased to 26.3, hgb 10.9, plt 217, L shift has persisted, esr was repeated and 71, pt
15, inr 1.2, fibrinogen 760, abg this am pH 7.25, cod 37, po2 89, hco3 16, Na now 129, cr 4.1, repeat LFTS are planned this afternoon, repeat CK now 1457, UDS + opiated, oxy, tricyclics, lyme serology pending, covid ag neg, CT leg without contrast:
Diffuse soft tissue swelling throughout the lower extremity with skin thickening along the dorsum of the foot and lateral ankle likely representing cellulitis. No soft tissue gas, radiopaque foreign body, or focal fluid collection, a peripheral
vascular US has been done and the read is pending, CT a/p without contrast: no renal obstruction, HSM and diverticulosis noted, tib/fib xray, and foot xray: no foreign body, CXR: low lung volumes no infiltrates on my read, blood cultures x2 are in
progress, a mrsa screen is in progress, urine culture is pending
PE:
Gen: nontoxic, awake and alert
CV: S1/S2 no murmurs, gallops or rubs
Pulm: CTA bilaterally
Ext: Right lower extremity swollen 1+ edema, mildly erythematous, streaky lymphangitic spread - pink, no tender inguinal lymph nodes, bullae and bruising on the lateral aspect of the foot; small wound on the dorsal foot, there is a chronic raised,
dark scar that patient reports is unchanged. No crepitus Pain is not out of proportion. Area is tender.
Labs:
most notable for
WBC 26
hgb 10
Cr 4.1 crcl 30
na 129
a1c 6.3
CK now 1457
A&P
48 year old male with history relevant for chronic pain on a relatively high dose of oxycodone, obesity chronically presenting for severe pain, redness, swelling, tenderness in the RLE progressing over about a week, in shock. Physical exam without
crepitus or pain out of proportion to physical findings but with notable swelling. Pain is
Septic Shock
Suspected Necrotizing fascitis
MSOF
Rhabdomyolysis - progressive
GIORGIO
Class III Obesity
- blood cultures x2 are in progress - no growth to date
- CT leg without soft tissue gas
- elevated CK concerning for muscluar involvement
- requested surgical consultation with concern for possible necrotizing fasciitis - patient may benefit from washout/cultures
- agree with clindamycin at present dose
- agree with vancomycin - appreciate pharmacy assistance with dosing
- switch zosyn to meropenem 500 mg IV q8hrs
- patient is critically ill with some interval improvement in pressor requirements
- discussed with Dr Briones surgery and Dr Turner randall same day - appreciate their input
- follow clinically
AW
Original Note:
Documented by User: Juanita Cody MD, Resident 10/30/23 13:44
Chief Complaint / Past History
Chief Complaint
Septic shock, Cellulitis
History of Present Illness
48-year-old male with history of obesity, who presents with painful red swollen right foot, with fever/chills, generalized weakness. 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
days prior to presentation). He does not recall specific localized pain/itchiness in the moment (while working), but recalls bilateral numbness in both feet later in the day, which progressed to unilateral R foot pain. Intermittent fever and chills
started the day after this incident in the [employer]. Since onset, he has had moments/days when he felt well enough to go to work and participate in his usual activity. No sick contacts or recent illness. He was able to drive himself to the ED, but was
helped out of his car by ED staff.
He recalls a similar presentation about 14 years ago, when he was doing work in the same location and lifted a piece of wood, noting what he thinks might have been a small snake in the area. He does not recall being bit, but he noted generalized
numbness and weakness x 1 day, which completely resolved with rest by the next day.
upon arrival, he was febrile 103 F, hypotensive 72/38, tachycardic 107, tachypneic 30, SPO2 91%, with WBC 21.8 + left shift, sodium 125, BUN 86, creatinine 5.2, bicarb 15, lactate 3.2, CRP 270, CPK 1024. In the ED he was started on Zosyn,
vancomycin, clindamycin, and was given a Tdap shot.
Past History
Past Medical History: HTN and Other (recurrent nephrolithiasis, cervicalgia)
Past Surgical History: None
Additional Past Surgical History:
Urologic surgery for nephrolithiasis
Allergy History:
Allergies
Allergy/AdvReac Type Severity Reaction Status Date / Time
No Known Allergies Allergy Unverified 10/29/23 20:38
Home Medications
cyclobenzaprine 10 mg tablet 10 mg PO TID PRN neck spasm 10/29/23
olmesartan 20 mg-hydrochlorothiazide 12.5 mg tablet (Benicar HCT) 1 tab PO DAILY 10/29/23
oxycodone 10 mg tablet 10 mg PO Q6H PRN severe pain 10/29/23
tamsulosin 0.4 mg capsule (Flomax) 0.4 mg PO HS 10/29/23
Social History
Tobacco: Non-Smoker
Alcohol: None
Drug: None
Personal:
Living: With Family
Employment: Employed
Family History
Family History: Not Pertinent
Review of Systems
Review of Systems
General: Negative Fever
Musculoskeletal: Joint Pain and Myalgias
Skin / Hair / Nails: Other (Redness, swelling, pain in RLE)
Vital Signs
Temp Pulse Resp BP Pulse Ox
99.6 F 91 11 117/74 94
10/30/23 11:00 10/30/23 11:00 10/30/23 11:00 10/30/23 11:00 10/30/23 11:00
Physical Exam
Physical Exam
Constitutional: No Acute Distress and Comfortable
Cardiovascular: Regular Rate and S1/S2; Negative Murmur or Rub
Pulmonary: Clear and Non Labored; Negative Wheezes, Rales or Rhonchi
Gastrointestinal: Soft and Non Tender
Skin: Warm and Other (1cm circular superficial wound with purulent coating, violaceous rim on dorsum of right foot. Bullae noted on dorsum of right foot. Diffuse swelling, warmth, tenderness and mild erythema of R Foot and leg, with streaking going
up medial aspect of leg. No crepitus. Old pink scar on anterior R panda. )
Neurological: Awake, Alert and Other (sensation and motor function of R foot normal)
Lab / Diagnostic Study Results
10/30/23 04:21
Abs Immat Gran (auto) 2.4 10^3/uL (0-0.05) H 10/29/23 23:34
Absolute Neuts (auto) 15.8 10^3/uL (1.4-6.5) H 10/29/23 23:34
Absolute Lymphs (auto) 0.6 10^3/uL (1.2-3.4) L 10/29/23 23:34
Absolute Monos (auto) 0.8 10^3/uL (0.1-0.6) H 10/29/23 23:34
Absolute Basos (auto) 0.1 10^3/uL (0-0.2) 10/29/23 23:34
Immature Gran % 12.3 % (0-0.5) H 10/29/23 23:34
Neutrophils % 80.1 % (42.2-75.2) H 10/29/23 23:34
Lymphocytes % 3.2 % (20.5-51.1) L 10/29/23 23:34
Monocytes % 4.0 % (1.7-9.3) 10/29/23 23:34
Eosinophils % 0.1 % (0-6) 10/29/23 23:34
Basophils % 0.3 % (0-2) 10/29/23 23:34
ESR 71 mm/hour (0-20) H 10/29/23 23:34
PT 15.3 Sec (11.4-14.6) H 10/29/23 22:06
INR 1.23 10/29/23 22:06
Lactic Acid 0.9 mmol/L (0.7-2.0) 10/30/23 02:05
C-Reactive Protein Cancelled 10/29/23 21:54
Ur Squamous Epith Cells 0-2 /LPF (Few) 10/30/23 04:06
Microbiology Results
Micro:
10/30/23 04:06 Urine Culture - Pending
Urine
10/29/23 23:34 MRSA Screen - Pending
Nose
10/29/23 21:04 Blood Culture - Pending
Blood/Venous
10/29/23 20:50 Blood Culture - Pending
Blood/Venous
Assessment / Plan
Sepsis secondary to suspected necrotizing fasciitis of R Leg and foot.
-Right lower extremity CT showed soft tissue swelling and dorsum of foot no bony joint involvement/soft tissue gas/acute osseous abnormality. Peripheral vascular ultrasound -no evidence of DVT.
-Concern for necrotizing fasciitis given clinical picture and physical exam. Elevated/uptrending CPK, elevated creatinine, bullae noted on physical exam in addition to usual cellulitic features. LRINEC score 12 points - High suspicion for
Necrotizing fasciitis.
-Blood cultures x2, Urine Cx, MRSA screen pending
-Surgical consult
-Discussed with surgical team, pt to be prepped for surgical debridement. Requested aerobic and anaerobic specimen cultures from OR
-Discontinue Zosyn, Start Meropenem 500mg IV Q8
-Continue Clindamycin 900mg IV Q8, and Vancomycin
Critically ill patient. Will continue to follow

Documented by User: Oanh Murphy MD 10/30/23 16:05
Consultation
-
Date/Time Consultation Requested: 10/29/23 22:35
Date/Time Consultation Performed: 10/30/23 9:35
Requesting Provider: Dr Frederick
Performing Provider: Dr Murphy
Reason for Consultation: cellulitis
--- NOTE | 2023-10-30 13:05 | VATNOTE ---
PICC placed without difficulty, but imaging showed that catheter is going up pt's neck. Redirect attempted twice, unsuccessful both times. Stove Installer in room at time of Xray and IR consulted. Spoke w/ RN in IR and made aware of issue. Plan is for
pt to go to IR before OR time at 1430. Will continue to monitor.
[2023-10-30] MEDS: OFIRMEV 100 IV (13:51)
[2023-10-30] MEDS: ATIVAN 0.25 MG IV (13:55)
[2023-10-30] MEDS: NOVOLOG FLEXPEN-MODERATE RESISTANCE 1 UNITS SC (13:55)
[2023-10-30] MEDS: NSS (PRESERVATIVE FREE) 0.125 ML IV (13:55)
[2023-10-30] MEDS: MERREM 500 MG IV ×2 (13:56→20:13)
[2023-10-30] MEDS: STERILE WATER FOR INJECTION 10 ML IV ×2 (13:56→20:13)
[2023-10-30 14:24] LABS: Lactic Acid 1.7 mmol/L (0.7-2.0)
[2023-10-30 14:39] LABS: Lyme Antibody Screen, EIA Negative (Negative)
--- NOTE | 2023-10-30 14:39 | CM ---
CM following re: discharge planning.
Reviewed pt's chart, met with pt.
Pt is a 48 year old male, admitted with primary dx of Septic shock. ID, nephrology, wound care following.
Pt reports he lives with spouse and 2 children in a 2[place], 2 steps to enter. 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
PCP: Jax Wu
Pharmacy: [facility].
D/C plan: home with anticipated no needs.
CM will follow with discharge plan updates as hospitalization progresses
--- NOTE | 2023-10-30 15:00 | PTCARENOTE ---
Addendum entered by Livier Ruelas RN 10/30/23 17:50:
Pt. taken to OR by SENIOR SHAREPOINT ARCHITECT x2 @ 1715. No needs from this RN @ this time. Awaiting return from OR.
Addendum entered by Livier Ruelas RN 10/30/23 16:54:
Fever improved s/p interventions but still febrile; remains on cooling blanket/new ice packs applied. Report given to OR, awaiting OR team. Call sun remains w in reach.
Original Note:
VAT RN attempted to place R DL PICC; unable to get into correct position. Dr. Tompkins aware and received orders for IR core stripper. Pt. transported to IR and R DL PICC replaced; correct position confirmed. Remains on levo/vaso/bicarb gtts- see flow
sheet. Prior to PICC insertion #18 R FA removed s/t suspected infiltrated w pressors running; area circled on skin; VAT aware. Upon return from IR, pt.'s core temp- 103.3. IV ofirmev admin- see MAR. Chills/rigors present. Cooling blanket and ice
packs applied. Call sun placed w in reach.
--- NOTE | 2023-10-30 15:37 | W.CON.NEPH ---
Consultation
-
Date/Time Consultation Requested: 10/29/2023 22:25
Date/Time Consultation Performed: 10/29/2023 3:37PM
Requesting Provider: Lamonte Frederick
Performing Provider: Olivia Nieto
Reason for Consultation: GIORGIO
Medical History
-
Chief Complaint: GIORGIO
History of Present Illness:
Mr. Rojas is a 48YOM with PMH of HTN, kidney stones, obesity who presents with a pain red swollen R foot, fevers, chills and weakness. He states that he might have been bitten by something while working outside on Monday and then developed R foot
pain. He also developed some fevers and chills. He did take 4 doses of NSAIDs prior to presentation. Had not noticed change in urination. Denies pain with peeing. He was able to drive himself to the ER, but needed assistance to get out of his car.
He is febrile to 103F, hypotensive, tachcardic, Cr 5.2, lactate 3.2. He was started on v/z/clindamycin and given a Tdap shot. COVID and lyme disease are both negative. He was initiated on pressor support due to significant hypotension. He was
transferred to the ICU for further management. Per surgery, there is concern for necrotizing soft tissue infection with nec fasciitis not ruled out. He is planned for the OR later today.
Past Medical History
kidney stones
HTN
obesity
Past Medical History: HTN and Other
Past Surgical History: Urological (lithotripsy)
Social History
Tobacco: Non-Smoker
Alcohol: None
Drug: None
Personal:
Living: With Family
Employment: Employed
Family History
Family History: Not Pertinent
Allergies / Home Medications
Allergy/AdvReac Type Severity Reaction Status Date / Time
No Known Allergies Allergy Unverified 10/29/23 20:38
�Medication �Instructions �Recorded �Confirmed �Type
cyclobenzaprine 10 mg tablet 10 mg PO TID PRN neck spasm 10/29/23 10/29/23 History
olmesartan 20 1 tab PO DAILY Blood Pressure 10/29/23 10/29/23 History
mg-hydrochlorothiazide 12.5 mg
tablet (Benicar HCT)
oxycodone 10 mg tablet 10 mg PO Q6H PRN severe pain 10/29/23 10/29/23 History
tamsulosin 0.4 mg capsule (Flomax) 0.4 mg PO HS Urinary Issue 10/29/23 10/29/23 History
Review of Systems
-
History Source: Patient
All other systems: Negative unless noted
Physical Exam
Vital Signs
Vital Signs
Temp Pulse Resp BP Pulse Ox
103 F H 91 11 117/74 94
10/30/23 15:00 10/30/23 11:00 10/30/23 11:00 10/30/23 11:00 10/30/23 11:00
Lab Results
WBC 26.3 10^3/uL (4.8-10.8) H 10/30/23 04:21
RBC 3.52 10^6/uL (4.70-6.10) L 10/30/23 04:21
Hgb 10.9 g/dL (13.0-18.0) L 10/30/23 04:21
Hct 31.5 % (39.0-52.0) L 10/30/23 04:21
Plt Count 217 10^3/uL (130-400) 10/30/23 04:21
eGFR 17.08 10/30/23 04:21
Physical Exam
General: AOx3 and Other (patient is tearful on my exam)
HEENT: PERRL, EOMI, Anicteric, Conjunctivae Clear, Ear/Nose Intact, Hearing Normal, Dentition Intact, Neck Supple, No JVD and No Thyromegaly
Respiratory: Clear, Normal Excursion and Nonlabored Respirations
Cardiac: S1/S2, Regular Rate/Rhythm and No Edema (RLE wrapped)
Breast: N/A
Abdomen: Soft, Nontender, Nondistended, Normal Bowel Sounds and No Hepatosplenomegaly
Rectal: Deferred by Provider
Musculoskeletal: No Clubbing, No Cyanosis and No Edema
Skin: No Rash (on exposed skin), Warm, Dry, No Clubbing, No Cyanosis and Normal Turgor
Neuro: Nonfocal/Grossly Intact
Hematologic/Lymphatic: No Cervical Lymphadenopathy
Psych: Insight/judgement good and Appropriate
Data Reviewed
-
Radiology: Image Personally Visualized and interpreted (poor inspiratory effort, clear cxr otherwise)
CT Scan: Report Reviewed by me (There is no gross focal intrinsic abnormality of the unenhanced pancreas, adrenal glands or kidneys. There are no findings to suggest obstructive uropathy bilaterally.)
Labs: Labs Reviewed by me, Discussed with Physician, Discussed with Nurse and Discussed with Patient
Old Records: Reviewed
Assessment/Plan
-
Assessment:
GIORGIO
NAGMA, prior lactic acidosis resolved
hyponatremia
mildly elevated CK
Soft tissue infection vs. nec fasc
prior hx of nephrolithaisis
Plan:
- Cr peaked at 5.2, now down to 4.1. I wonder if this is all in the setting of sepsis leading to ATN? bites that can cause acute renal failure -- brown recluse spider bite (which can cause a pigment nephropathy) vs. snake bites (less likely in this
area)
- please trend CK levels
- okay to continue sodium bicarb at 200cc/hr
- UA with 3+ blood but only 7-10 RBCs, could be indicative of pigment nephropathy.
- agree with pressors for supportive care
- patient planning to go to OR today for debridement, plans for BMP afterwards
- please monitor I/Os
- avoid further nephrotoxins and dose medications for GFR <20
--- NOTE | 2023-10-30 16:08 | W.SUR.PREOP ---
Pre-Operative Surgical Note
-
I have examined this patient prior to the performance of the scheduled procedure.
The patient's condition is unchanged from the time of the current History and
Physical and the patient is able to undergo the scheduled procedure.
[2023-10-30 16:19] LABS: Venous Blood Gas B.E. 4.5 mmol/L (-4 to +4); Venous Blood Gas HCO3 28.3 mmol/L (22-27); Venous Blood Gas O2 Sat % 98.8 %; Venous Blood Gas pCO2 38 mmHg (35-48); Venous Blood Gas pH 7.48 (7.32-7.43); Venous Blood Gas pO2 81 mmHg (30-50)
[2023-10-30 16:20] LABS: Venous Blood Gas O2 Therapy 2L/min
[2023-10-30 16:39] LABS: ALT (SGPT) 28 U/L (0-50); AST (SGOT) 61 U/L (17-59); Albumin 2.8 g/dl (3.5-5.0); Alkaline Phosphatase 102 U/L (38-126); Blood Urea Nitrogen 58 mg/dl (9-20); Calcium 7.7 mg/dl (8.4-10.2); Carbon Dioxide 26 mmol/L (22-30); Chloride 94 mmol/L (98-107); Estimated Creatinine Clearance 60 ml/min; Glucose 149 mg/dl (70-99); Magnesium 2.3 mg/dl (1.6-2.3); Phosphorus 2.3 mg/dl (2.5-4.5); Potassium 3.1 mmol/L (3.5-5.1); Sodium 130 mmol/L (135-145); Total Protein 5.4 g/dl (6.3-8.2); eGFR 38.11
[2023-10-30 17:23] LABS: Vancomycin Random 11.1 ug/ml
[2023-10-30 17:39] LABS: Creatine Phosphokinase 786 U/L (55-170)
--- NOTE | 2023-10-30 18:48 | W.IMMPOSTOP ---
Surgical Immed Post Op Note
-
Primary Surgeon: Markel Bowles MD
Assisting Surgeon: None
Pre-op Diagnosis: Necrotizing soft tissue infection of the Right Foot
Post-op Diagnosis: Same
Procedure Performed: Excision and debridement of the Right Foot
Anesthesia Type: General
Specimen / Cultures:
1. Wound Culture for GS, Aerobic and anaerobic
2. Tissue culture
Estimated Blood Loss: 11
Complications: None
Operative Findings: Punctate wound on right forefoot probed and noted to be tracking proximally and laterally. The skin along these tracts were incised and part of the tissue was excised. Significant edema was noted, some necrotic looking soft
tissue but no evidence of necrotizing fasciitis. After achieving hemostasis, the wound was packed with betadine soaked kerlix gauze followed by a kerlix wrap.
Post-op Plan:
Elevate leg
Wound care: change kerlix with betadine daily. ABDs followed by kerlix wrap and ERNSETO Wrap.
Continue IV abx, Follow-up cultures
GS will follow with serial exams
[2023-10-30] MEDS: HEPARIN SC (19:11)
--- NOTE | 2023-10-30 19:38 | OR.RPT ---
Operative Report
Operative Report
Patient Name: Colten Rojas
: 1975
Date of Operation: 10/30/2023
Preoperative Diagnosis: Necrotizing soft tissue infection of the right foot
Postoperative Diagnosis: Same
Procedure(s):
Excisional debridement of the right foot 15 x 5 cm x 2 cm deep
Surgeon(s):
Dr. Bowles
Drywall Carrier(s):
None
Anesthesia: General
Estimated Blood Loss: 11 cc
Urine Output: None
Drains/Lines/Implants: None
Specimens:
Wound fluid for culture and Gram stain
Tissue culture
Indication for surgery:
This is a 48-year-old male morbidly obese (BMI 42), prediabetic who was admitted to our hospital/ICU for septic shock secondary to a right lower extremity anterior foot wound with corresponding cellulitis and ascending infection with skin necrosis,
bullae concerning for a necrotizing soft tissue infection. After thorough discussion of the risk benefits and alternatives the patient was consented for an open debridement.
Operative Findings: Punctate wound on right forefoot probed and noted to be tracking proximally and laterally. The skin along these tracts were incised and part of the tissue was excised. Significant edema was noted, some necrotic looking soft
tissue but no evidence of necrotizing fasciitis. After achieving hemostasis, the wound was packed with betadine soaked kerlix gauze followed by a kerlix wrap.
Details of the operation:
The patient was brought to the operating room and placed in the supine position. A left brachial A-line was placed prior to induction of anesthesia, followed by endotracheal intubation. The right lower extremity was then prepped and draped in the
usual fashion. A team timeout was performed, confirming the patient, laterality of the procedure and that appropriate preoperative antibiotics had been given. The skin was anesthetized with quarter percent lidocaine with epinephrine and an incision
was made over the area of the punctate skin wound on his right forefoot. The underlying skin was visibly necrotic and so we extended our incision deep to the fascia which appeared viable. We then probed along this layer superiorly/proximally as
well as laterally/posteriorly and incised the skin in a Y like fashion. There is a significant edema but the underlying tissues looked fairly healthy. There was a medial portion that was somewhat necrotic and this was excised. There was no
concern for necrotizing fasciitis at this time and it does not appear that the infection extended more proximally so the wound was irrigated with saline. Hemostasis was achieved. The wound was then packed with Betadine soaked Kerlix followed by a
tight kerlix wrap. All counts were correct at the end of procedure. The patient was then transferred back to the ICU for further monitoring and care.
I was the attending physician and performed the procedure with no assistance. I was present for all portions of the case
Markel Bowles MD
[2023-10-30] MEDS: KLOR-CON 40 MEQ PO (19:40)
[2023-10-30] MEDS: SODIUM BICARBONATE IV ×2 (19:40→20:04)
[2023-10-30] MEDS: VANCOCIN 300 MG IV (19:41)
[2023-10-30] MEDS: VANCOCIN 300 ML IV (19:41)
[2023-10-30] MEDS: NEUTRA-PHOS POWDER PACKET 500 MG PO (19:55)
[2023-10-30] MEDS: NOVOLOG FLEXPEN-MODERATE RESISTANCE SC (20:01)
--- NOTE | 2023-10-30 20:12 | W.PN.UPDATE ---
Update Note
Progress Note Update
Patient received from OR back to ICU. Additional pain medication ordered dilaudid and adjustments made to prn, patient stated he is in 'lots of pain'. Labs ordered for repeat. Discussed IVF change from bicarb to LR with cma or lpn Dr. Nieto.
[2023-10-30] MEDS: LR 1000 IV (20:13)
[2023-10-30 20:36] LABS: B.E. 4.2 mmol/L; HCO3 28.4 mmol/L (21-28); O2 Saturation % 98.9 % (94-98); PCO2 40 mmHg (35-48); PO2 98 mmHg (83-108); pH 7.46 (7.35-7.45)
[2023-10-30 20:42] LABS: Hematocrit 27.4 % (39.0-52.0); Hemoglobin 9.8 g/dL (13.0-18.0); Mean Corp Hgb Conc. 35.8 g/dL (33.0-37.0); Mean Corpuscular Hgb 30.4 pg (27.0-31.0); Mean Corpuscular Volume 85.1 fL (80.0-94.0); Mean Platelet Volume 9.6 fL (7.4-10.4); Platelet Count 206 10^3/uL (130-400); Red Blood Cell Count 3.22 10^6/uL (4.70-6.10); Red Cell Dist. Width 13.6 % (11.5-14.5)
[2023-10-30] MEDS: NEURONTIN 300 MG PO (20:47)
[2023-10-30] MEDS: ROXICODONE 5 MG PO (21:13)
--- NOTE | 2023-10-30 21:50 | PTCARENOTE ---
Pt arrived back to ICU room 3361 from PACU via bed at 1859, accompanied by CHEESEMAKER HELPER and RN. Pt s/p debridement of right foot wound. Pt arrived on 6LNC, very drowsy, sats 79-80%, placed on NRB mask by CHEESEMAKER HELPER. Able to wean pt off NRB mask about 30 min later
and placed back on 6LNC, SpO2 currently 95%. SR 90s-low 100s on monitor. Left brachial arterial line in place. Received pt on Levophed at 6mcg/min and Vasopressin at 0.03 units/min. Titrating Levo up to keep MAP >65. Swallow screen done at bedside
when pt more alert, pt passed screening, able to drink water and take previously ordered Neutra-phos and Klor-con (had been ordered prior to going to the OR.) Pt's right foot wrapped in Kerlix, wound packed with betadine which is showing through
Kerlix, small amount of sanguinous drainage noted as well. Pt reporting 10/10 pain, medicated with IV Dilaudid and PRN Oxycodone so far, see EMAR for details. Foot elevated on pillow and air cushion and foot of bed elevated as well at pt's request.
+3 edema noted to RLE, DP pulse found with doppler. T-max 100.8 so far this shift, Tylenol administered, see EMAR. See nursing shift assessment flowsheet for full physical assessment details. Call sun and personal items within reach.
[2023-10-30 22:44] LABS: Blood Urea Nitrogen 47 mg/dl (9-20); Carbon Dioxide 26 mmol/L (22-30); Estimated Creatinine Clearance 89 ml/min; eGFR > 60.00
[2023-10-30 22:56] LABS: Calcium 7.7 mg/dl (8.4-10.2); Chloride 96 mmol/L (98-107); Glucose 183 mg/dl (70-99); Sodium 131 mmol/L (135-145)
[2023-10-30 23:45] LABS: Glucose - Point of Care 198 mg/dl (70-99)
[2023-10-31] VITALS (29 sets, daily range): BP systolic 70–117; BP diastolic 21–91; BMI 42.1
[2023-10-31] MEDS: PITRESSIN 100 IV (00:13)
[2023-10-31] MEDS: NOVOLOG FLEXPEN-MODERATE RESISTANCE 1 UNITS SC ×2 (00:14→11:26)
--- NOTE | 2023-10-31 00:42 | PTCARENOTE ---
Physical assessment unchanged. + doppler signal for right DP pulse. O2 weaned to 4LNC and pt was maintaining SpO2 at 95% but then had a nosebleed. Pt states he gets nosebleeds 'all the time'. Pt removed his O2 and occluded right nare with tissues to
stop the bleed (took about 10 minutes), SpO2 dropped to 87% on RA. Once nosebleed stopped, pt placed back on O2, this time at 2LNC and humidifier bottle added. SpO2 currently 90%. Temp down to 99.3. CHG cloth bath done and all linens + gown changed.
SR 80s on monitor. Remains on Levophed and Vasopressin infusions. Call sun and personal items within reach.
[2023-10-31] MEDS: DILAUDID 1 MG IV ×5 (01:22→20:38)
[2023-10-31] MEDS: STERILE WATER FOR INJECTION 10 ML IV ×4 (01:23→20:05)
[2023-10-31] MEDS: MERREM 500 MG IV ×4 (01:23→20:05)
--- NOTE | 2023-10-31 04:09 | PTCARENOTE ---
Physical assessment unchanged. Remains on Levophed and Vasopressin infusions. Pt has been resting with eyes closed since receiving last dose of IV Dilaudid (see EMAR for details). SR 90s/ST low 100s on monitor, SpO2 90-91% on 2LNC.
[2023-10-31] MEDS: LR 1000 IV (05:11)
[2023-10-31] MEDS: CLEOCIN 50 IV ×3 (05:11→22:18)
[2023-10-31 05:29] LABS: B.E. 5.3 mmol/L; PCO2 38 mmHg (35-48); PO2 69 mmHg (83-108); pH 7.49 (7.35-7.45)
[2023-10-31 05:42] LABS: Hematocrit 27.1 % (39.0-52.0); Hemoglobin 9.7 g/dL (13.0-18.0); Mean Corp Hgb Conc. 35.8 g/dL (33.0-37.0); Mean Corpuscular Volume 83.9 fL (80.0-94.0); Mean Platelet Volume 9.5 fL (7.4-10.4); Platelet Count 242 10^3/uL (130-400); Red Blood Cell Count 3.23 10^6/uL (4.70-6.10); Red Cell Dist. Width 13.7 % (11.5-14.5); White Blood Cell Count 29.1 10^3/uL (4.8-10.8)
[2023-10-31 06:04] LABS: Vancomycin Random 10.9 ug/ml
[2023-10-31 06:06] LABS: ALT (SGPT) 28 U/L (0-50); AST (SGOT) 50 U/L (17-59); Albumin 2.8 g/dl (3.5-5.0); Alkaline Phosphatase 114 U/L (38-126); Blood Urea Nitrogen 39 mg/dl (9-20); Calcium 8.2 mg/dl (8.4-10.2); Carbon Dioxide 26 mmol/L (22-30); Chloride 99 mmol/L (98-107); Creatine Phosphokinase 334 U/L (55-170); Estimated Creatinine Clearance 103 ml/min; Glucose 202 mg/dl (70-99); Magnesium 2.6 mg/dl (1.6-2.3); Potassium 3.7 mmol/L (3.5-5.1); Sodium 134 mmol/L (135-145); Total Bilirubin 0.8 mg/dl (0.2-1.3); Total Protein 5.4 g/dl (6.3-8.2); eGFR > 60.00
[2023-10-31] MEDS: NOVOLOG FLEXPEN-MODERATE RESISTANCE 3 UNITS SC (06:16)
[2023-10-31] MEDS: LEVOPHED 250 IV (06:16)
[2023-10-31 06:23] LABS: Absolute Neutrophils -Man Diff 27.9 10^3/uL (1.4-6.5); Band Neutrophils 11 % (0-3); Lymphocytes 2 % (20-51); Monocytes 2 % (2-9); Platelets Checked Yes; Segmented Neutrophils 85 % (42-75)
[2023-10-31 06:24] LABS: Normal RBC Morphology No; Target Cells Occasional; Total Cells Counted 100; Toxic Granulation 1+
[2023-10-31 06:26] LABS: Hypochromasia OCC
[2023-10-31 07:28] LABS: Glucose - Point of Care 189 mg/dl (70-99)
--- NOTE | 2023-10-31 07:41 | W.PN.HOSP.TC ---
Today's Communication/Plan
-
Resume morphine
Continue antibiotics
Assessment / Plan
Assessment / Plan
Gen-AAOx3, NAD, morbid obesity
HEENT-NC, AT, anicteric, clear oral mm
Neck-supple
CV-reg, no M, +S1/S2
Lungs-clear B/L
Abd-soft, NT, ND
Ext-diffuse right lower extremity edema
Musculoskeletal-no cyanosis, clubbing
Skin-warm and dry, right lower extremity erythema, right foot dorsal wound with purulence
Neuro-grossly non-focal
Psych-calm, cooperative
Septic shock -due to right foot necrotizing fasciitis. Underwent excisional debridement October 29. Currently on clindamycin, vancomycin, meropenem per infectious disease.
Full liquid diet, advance per surgery. Activity per surgery recommendation.
Still on Levophed, wean down as able. Vasopressin discontinued. White blood cell count 29.1k, afebrile this morning. Admission blood cultures negative so far. Wound cultures pending.
GIORGIO -due to septic shock. GIORGIO improved. Creatinine 1.2. Metabolic acidosis resolved.
Hyponatremia -improved, 134.
Hypokalemia -resolved.
Normocytic anemia -unknown acuity or etiology. No evidence of hemolysis. Monitor for now. Baseline unknown.
Acute nontraumatic rhabdomyolysis -CPK improved. Suspect due to necrotizing fasciitis.
Troponin elevation -suspect acute nonischemic myocardial injury due to critical illness, septic shock.
Impaired fasting glucose -hemoglobin A1c 6.3%. Weight loss is the gan.
Essential hypertension -hold antihypertensives for shock.
Chronic low back pain/chronic opiate dependence -he is on MS Contin 30 mg every 12 hours [id number] and oxycodone with acetaminophen every 6 hours as needed at home for chronic back pain. Resume morphine today. Continue IV Dilaudid as
needed. Patient currently complaining of significant right lower extremity pain due to infection.
Hx nephrolithiasis -history of stenting, nephrostomy in the past.
Diverticulosis -noted on abdominal CT.
Possible mild chronic T8/T9 partial vertebral compression fractures -noted on CT.
Morbid obesity due to excess calories
Full code
Anticipated Discharge: > 48 hours
Subjective/Interval History
-
Date of Service: October 31, 2023
Patient seen and examined. Complaining of severe right foot pain.
Objective Data
-
Labs:
Laboratory Results
10/30/23 10/30/23 10/31/23
20:31 22:19 05:20
WBC 23.0 H
Hgb 9.8 L
Hct 27.4 L
Plt Count 206
HCO3 28.4 H
Sodium 131 L 134 L
Potassium 4.0 D 3.7
Chloride 96 L 99
Carbon Dioxide 26 26
BUN 47 H 39 H
Creatinine 1.4 H 1.2
Glucose 183 H 202 H
Calcium 7.7 L 8.2 L
Total Bilirubin 0.8
AST 50
ALT 28
Alkaline Phosphatase 114
10/31/23
05:21
WBC 29.1 H
Hgb 9.7 L
Hct 27.1 L
Plt Count 242
HCO3 29.0 H
Sodium
Potassium
Chloride
Carbon Dioxide
BUN
Creatinine
Glucose
Calcium
Total Bilirubin
AST
ALT
Alkaline Phosphatase
Vital Signs:
Vital Signs
Temp Pulse Resp BP Pulse Ox
98.7 F 96 15 134/73 90
10/31/23 04:08 10/31/23 06:21 10/31/23 06:21 10/30/23 21:25 10/31/23 06:17
I&O
10/30/23 10/31/23 11/01/23
06:59 06:59 06:59
Intake Total 1715.2 / 2024.2 4847.5 / 4847.5
Output Total 1600 / 1600 5485 / 5404
Balance 115.2 / 425.2 -637.5 / -637.5
Review of Systems
-
History Source: Patient
All other systems: Reviewed and negative
[2023-10-31] MEDS: HEPARIN 5000 UNITS SC (07:50)
--- NOTE | 2023-10-31 08:01 | W.PN.ANS.POP ---
Anesthesia Post Operative
- Anesthesia Post Op Note
Vital Signs Stable-See Nursing Note: Yes
Airway Patent: Yes
Adequate Pain Control: Yes
Change in Mental Status: No
Current Postoperative Nausea & Vomiting: No
Anesthesia Complications: No
General Anesthetic Recall: No
Unplanned Admission: No
Post Op Hydration Adequate: Yes
- -
patient resting comfortably in bed. VSS. No complaints at this time.
--- NOTE | 2023-10-31 08:15 | PTCARENOTE ---
Assumed care of patient at 0700. Physical assessment as noted. + doppler signal for right DP pulse. O2 2LNC and pt was maintaining SpO2 at 99%. Temp 101.2, tylenol given. SR 80s on monitor. Remains on Levophed. C/o pain 10/10 despite meds given.
Home dose of MS contin given. Call sun and personal items within reach. at the bedside.
--- NOTE | 2023-10-31 08:25 | W.PN.INTV ---
Today's Communication / Plan
Recommendations
Levophed with wean as tolerated
Pain control
Follow-up cultures
ABx as per ID
IVF with LR, wean off as PO diet increases
Supplemental O2, keeping SpO2 >90-24%
Assessment
-
Assessment: 48-year-old male non-smoker with past medical history of prediabetes, cervicalgia, hypertension and recurrent nephrolithiasis presents with swollen right foot that is painful. He states that he had a tree cut down in his backyard on
this past , and walked back to see the progress and believes something bit him. He has had worsening right foot swelling and pain since then. In the ER he was febrile to 103 �F, tachycardic to 107, breathing at 20-30 breaths/min, BP 72/38,
and saturating 91% on room air. Labs showed leukocytosis to 19.8, Hb 9.2, ESR 71, ABG with pH 7.31, pCO2 33, serum sodium 126, creatinine 4.4, BUN 80, serum bicarbonate 15, lactate 3.2, CK10 24, CRP >270, albumin 2.5, with negative COVID-19 antigen
and negative Lyme screen. Blood cultures were collected, with CXR showing low lung volumes without pneumonia. Right foot/tib�fib XR showed no acute osseous abnormality or foreign body. CT abdomen/pelvis showed no obstructive uropathy,
hepatosplenomegaly, descending colon/sigmoid diverticulosis and suspected old T8-[address] fractures[address] right lower extremity showed no acute osseous abnormality with diffuse soft tissue swelling with skin thickening along
the dorsum of the foot and lateral ankle with no soft tissue gas, foreign body or focal fluid collection. RLE duplex ultrasound was negative for DVT. He was given 3 L of NS 0.9%, Ofirmev, tetanus shot, Zosyn/IV vancomycin and started on Levophed
due to persistent hypotension with SBP in the 60s�70s. Patient transferred to the ICU for further care, and critical care services consulted for additional management/recommendations.
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
Impression:
#Septic shock due to RLE cellulitis/necrotic foot wound; no evidence of necrotizing fasciitis from OR on 10/30/2023
#Necrotizing soft tissue infection of right foot s/p excisional debridement (POD #1)
#GIORGIO
#Acute respiratory failure with hypoxia likely due to sepsis with acute organ dysfunction
#Anemia
#Metabolic acidosis with increased anion gap - resolved
#Hyponatremia likely due to prerenal GIORGIO
#Rhabdomyolysis
#Elevated troponin (peaked at 0.051 on 10/30/2023)
#Lactic acidosis - normalized
#Hepatosplenomegaly
#Obesity (BMI: 42.7)
#Prediabetes mellitus (HbA1c: 6.3) with hyperglycemia
Plan:
- Continue antibiotics currently on IV vancomycin, clindamycin & meropenem s/p zosyn (given 10/28 - 10/29)
- ID on board and recs appreciated
- s/p excisional debridement on 10/30/2023; follow-up tissue cultures
- Pain control with MS Contin, prn oxycodone + Dilaudid
- Wound care
- Continue vasopressors with Levophed; vasopressin has been weaned off; continue to wean as tolerated to maintain MAP >65
- Maintain SpO2 >90-94% with supplemental oxygen and wean as tolerated
- prn nebulized bronchodilators
- Trend creatinine
- Renally dose all medication/ABx
- Nephrology on board, recommendations appreciated
- Continue with LR infusion, currently at 100cc/hr; once he is tolerating >50-75% of oral diet then will stop IVF
- Trend serum HCO3
- Trend CPK
- Transfuse if needed to keep Hb >7g/dL, plt>50k
- Replete electrolytes with K>4, Mg>2
- Maintain euglycemia with goal BG 140-180 with moderate resistance ISS
- Start Lantus 5 units HS given he still remains mildly hyperglycemic
- Incentive spirometer encouraged
- DVT ppx
Critical care statement: A total of 38 minutes of critical care time was provided for this patient today. This includes management of unstable vital signs, evaluation of the patient at bedside, reviewing the patient's pertinent medical records
including radiographs, microbiology, laboratory evaluations, and discussion with primary team, consultants, pharmacy, nutrition, physical therapy, case management, charge nurse, critical care nursing, and respiratory therapy.
Data:
CT right lower extremity 10/30/2023:
No acute osseous abnormality.
Diffuse soft tissue swelling throughout the lower extremity with skin thickening along the dorsum of the foot and lateral ankle likely representing cellulitis. No soft tissue gas, radiopaque foreign body, or focal fluid collection.
Subjective Dataa
Subjective Data
Date of Service:
Date of Service: October 31, 2023
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
Subjective:
Patient seen and evaluate today. No acute events reported overnight. Excessive pain on the right foot. Went to OR yesterday with excisional debridement of R-foot, findings were negative for necrotizing fasciitis. Remains on Levophed at 6mcg/min.
Currently on 2L/min, BP 87/56, HR 98, SpO2 99%. Bicarb gtt off and on LR at 100cc/hr. at bedside. All questions were answered.
Review of Systems
General: Other (Negative unless mentioned above)
Objective Data
Data Reviewed
Vital Signs / I&O / Oxygen:
Vital Signs
Temp Pulse Resp BP Pulse Ox
101.2 F H 106 17 134/73 94
10/31/23 08:47 10/31/23 08:00 10/31/23 08:00 10/30/23 21:25 10/31/23 08:00
Intake and Output
10/30/23 10/31/23 11/01/23
06:59 06:59 06:59
Intake Total 1715.2 / 5.2 4847.5 / 4970.0 122.5 / 122.5
Output Total 1600 / 1600 5485 / 5785 300 / 300
Balance 115.2 / 425.2 -637.5 / -815.0 -177.5 / -177.5
SaO2 94
Nasal Cannula flow liters per 2
minute
Physical Exam
General: Respiratory Distress (Negative), Comfortable and Chills (Negative)
HEENT: Normocephalic and Anicteric
Cardiovascular: S1-S2 and Peripheral Edema (+1 RLE edema, left leg without edema)
Respiratory: Wheeze (Negative), Crackles (Negative), Rhonchi (Negative) and Non-Labored Respirations
GI: Soft, Distended (Abdominal obesity), Non Tender and Normal Bowel Sounds
Neurology: AO x 3 and Tremors (Negative)
Skin: Warm, Dry and Other (Bandage on right lower extremity)
Labs/Micro/Reports
Lab Data
10/31/23 05:21
10/31/23 05:20
Laboratory Results
10/30/23 10/31/23
20:31 05:21
pH 7.46 H 7.49 H
pCO2 40 38
pO2 98 69 L
HCO3 28.4 H 29.0 H
O2 Delivery Level
Microbiology
10/29/23 23:34 Nose MRSA Screen - Final
No Methicillin Resistant Staphylococcus aureus isolated.
10/29/23 21:04 Blood/Venous Blood Culture - Preliminary
No Growth in 24 hours- Final report to follow
10/29/23 20:50 Blood/Venous Blood Culture - Preliminary
No Growth in 24 hours- Final report to follow
10/30/23 18:26 Foot - Right Gram Stain - Preliminary
10/30/23 18:12 Foot - Right Gram Stain - Preliminary
[2023-10-31] MEDS: VANCOCIN 300 ML IV ×2 (08:39→17:30)
[2023-10-31] MEDS: VANCOCIN 300 MG IV ×2 (08:39→17:30)
[2023-10-31] MEDS: MS CONTIN (EXTENDED RELEASE) 30 MG PO ×2 (08:39→20:06)
[2023-10-31] MEDS: TYLENOL 650 MG PO (08:46)
--- NOTE | 2023-10-31 08:51 | PHA.VAN.FU ---
Vancomycin Assessment / Plan
- Assessment
Renal Function: SCR Decreasing
WBC's are: Trending Up
Concomitant Antimicrobials: meropenem, clindamycin
- Assessment - Therapeutic Drug Monitoring
Random Level: 10.9 - drawn ~10H after previous dose of 1500mg
- Dosing Plan
Dosing by Level: Re-dose today (Vanc 1500mg x1 now and second dose at 1800)
- Monitoring Plan
Random Level: 10/31 599
- Follow Up
Pharmacy will continue to follow.
Vancomycin Follow UP
- -
Patient Age: 48
Patient Sex: Male
Vancomycin Day #: 2
Indication: Skin And Soft Tissue
Requesting Provider: Dr. Doe Frederick
Pertinent Antimicrobial Allergies:
NKDA
Height / Weight:
Height 5 ft 10 in
Actual Weight 133 kg
Pertinent Past Medical History: BMI ~43
- Vital Signs / Lab Results
Temp Pulse Resp BP Pulse Ox
101.2 F H 106 17 134/73 94
10/31/23 08:47 10/31/23 08:00 10/31/23 08:00 10/30/23 21:25 10/31/23 08:00
Lab Results - Hematology
10/29/23 10/29/23 10/30/23
20:50 23:34 04:21
WBC 21.8 H 19.8 H 26.3 H
Band Neutrophils
10/30/23 10/31/23
20:31 05:21
WBC 23.0 H 29.1 H
Band Neutrophils 11 H
Lab Results - Chemistry
10/29/23 10/29/23 10/30/23
20:50 23:34 04:21
BUN 86 H 80 H 81 H
Creatinine 5.2 H* 4.4 H* 4.1 H*
Estimated Creat Clear 30
Albumin 3.2 L 2.5 L
10/30/23 10/30/23 10/31/23
16:08 22:19 05:20
BUN 58 H 47 H 39 H
Creatinine 2.1 H 1.4 H 1.2
Estimated Creat Clear 60 89 103
Albumin 2.8 L 2.8 L
10/29/23 10/30/23 10/30/23
20:50 02:05 14:00
Lactic Acid 3.2 H 0.9 1.7
Microbiology Results
10/29/23 23:34 MRSA Screen - Final
Nose No Methicillin Resistant Staphylococcus aureus isolated.
10/29/23 21:04 Blood Culture - Preliminary
Blood/Venous No Growth in 24 hours- Final report to follow
10/29/23 20:50 Blood Culture - Preliminary
Blood/Venous No Growth in 24 hours- Final report to follow
10/30/23 18:26 Gram Stain - Preliminary
Foot - Right
10/30/23 18:12 Gram Stain - Preliminary
Foot - Right
Therapeutic Drug Monitoring
Random Vancomycin 10.9 ug/ml 10/31/23 05:20
--- NOTE | 2023-10-31 09:11 | W.PN.ID1 ---
Date of Service
Date of Service: October 31, 2023
Today's Communication
appreciate surgical team
last day of clindamycin
continue vanc, agree with dose adjustment of meropenem
Assessment / Plan
48 year old male with history relevant for chronic pain on a relatively high dose of oxycodone, obesity chronically presenting for severe pain, redness, swelling, tenderness in the RLE progressing over about a week prior to presentation to health
care, initial in shock. Physical exam without crepitus or pain out of proportion to physical findings but with notable swelling and bullae initially. Taken to the OR and found to have necrotizing SSTI which was debrided, thankfully without
evidence of fasciitis
Septic Shock - improving
Necrotizing SSTI
MSOF
Rhabdomyolysis - progressive
GIORGIO - rapidly improving
Prediabetes
Class III Obesity
- tissue culture gram stain rare gpcs x1; aerobic cultures x2 and anaerobic x1 all in progresss no growth to date
- blood cultures x2 are in progress - no growth to date
- CT leg without soft tissue gas
- pleased to see CK downtrending
- appreciate surgical team
- continue with clindamycin for today then stop
- continue vancomycin - appreciate pharmacy assistance with dosing
- continue meropenem 500 mg IV q6 hrs (already adjusted and agree with new dosing)
- patient is critically ill with notable interval improvement in pressor requirements
- follow clinically
- outpatient would recommend follow up with endocrinology or [facility] - obesity management will likley improve chronic back pain as well as decrease risk of future infections.
Chief Complaint
-: Other (necrotizing SSTI, shock)
Subjective / Review of Systems
fevers ongoing but lower now via core route
norepi dose down to 6 mcg/min, vasopressin off
OR note - necrotic subcuticular tissue but not fasciitis
'I still feel like crap'
no appetite yet
Vital Signs / Physical Exam
Vital Signs
Vital Signs
Temp Pulse Resp BP Pulse Ox
101.2 F H 106 17 134/73 94
10/31/23 08:47 10/31/23 08:00 10/31/23 08:00 10/30/23 21:25 10/31/23 08:00
Physical Exam
Constitutional: No Acute Distress, Chronically Ill and Obese
Cardiovascular: Regular Rate and S1/S2; Negative Murmur or Rub
Pulmonary: Clear and Symmetric; Negative Wheezes or Rales
Gastrointestinal: Soft, Non Tender, Non Distended and Normal Bowel Sounds
Skin: Warm and Dry; Negative Rash or Jaundice
Wound: Other (dressing copious serosanguinous fluid, take down deferred to surgery)
Objective Data
Lab Data
Lab Results
10/31/23 05:21
10/31/23 05:20
ESR 71 mm/hour (0-20) H 10/29/23 23:34
PT 15.3 Sec (11.4-14.6) H 10/29/23 22:06
INR 1.23 10/29/23 22:06
APTT 39.1 Sec (23.4-35.0) H 10/29/23 22:06
Estimated Creat Clear 103 ml/min 10/31/23 05:20
Lactic Acid 1.7 mmol/L (0.7-2.0) 10/30/23 14:00
Total Bilirubin 0.8 mg/dl (0.2-1.3) 10/31/23 05:20
AST 50 U/L (17-59) 10/31/23 05:20
ALT 28 U/L (0-50) 10/31/23 05:20
Alkaline Phosphatase 114 U/L (38-126) 10/31/23 05:20
C-Reactive Protein Cancelled 10/29/23 21:54
Most recent labs reviewed as above in addition:
L shift persists
Lyme serologies sent by another provider negative
Micro Results:
10/29/23 23:34 MRSA Screen - Final
Nose No Methicillin Resistant Staphylococcus aureus isolated.
10/29/23 21:04 Blood Culture - Preliminary
Blood/Venous No Growth in 24 hours- Final report to follow
10/29/23 20:50 Blood Culture - Preliminary
Blood/Venous No Growth in 24 hours- Final report to follow
10/30/23 18:26 Tissue Culture - Pending
Foot - Right Gram Stain - Preliminary
10/30/23 18:12 Wound Culture - Pending
Foot - Right Gram Stain - Preliminary
10/30/23 18:12 Anaerobic Culture - Pending
Foot - Right
10/30/23 04:06 Urine Culture - Pending
Urine
[2023-10-31 10:05] LABS: Phosphorus 2.3 mg/dl (2.5-4.5)
--- NOTE | 2023-10-31 10:22 | W.PN.GS2 ---
Today's Communication / Plan
-
-- Regular diet
-- Abx: Vancomycin and Clindamycin, ID following
-- Local wound care: WTD gauze BID with Kerlix and knee high ERNESTO
Assessment / Plan
-
Patient is a 48 yo M p/w necrotizing soft tissue infection of RLE POD#1 s/p incision and debridement of RLE/foot
Febrile, low grade tachycardia, BP stable
Wound Cx: rare GPCs
Evidence of improvement physical exam with dressing change. No worsening signs of erythema, bulla, pain, or purulence. Recommend continued medical management with local wound care (orders placed) and antibiotics. Continue to monitor closely and
trend fever curve and WBC.
-- Regular diet
-- Abx: Vancomycin and Clindamycin, ID following
-- Local wound care: WTD gauze BID with Kerlix and knee high ERNESTO
Subjective Data
-
Date of Service: October 31, 2023
Pain with movement or palpation. Fevers. Feels slightly improved.
Objective Data
-
Intake and Output
10/30/23 10/31/23 08
06:59 06:59 06:59
Intake Total 1714.2 2024.2 4847.5 / 4970.0 467.5 / 467.5
Output Total 1600 / 1600 5485 / 5785 460 / 460
Balance 115.2 / 425.2 -637.5 / -815.0 7.5 / 7.5
Intake:
Oral fluids 240 / 240
IV fluids (Total) 1715.2 / 1974.2 4082.5 / 4205.0 217.5 / 217.5
Levophed 315.2 / 375.2 780.0 / 802.5 67.5 / 67.5
Lr 1,000 ml @ 100 mls/hr IV . 900 / 1000 150 / 150
Q10H KAMRAN Rx#:[id number]
Sterile Water For Injection 1400 / 1600 2200 / 2200
1000 ml 1,000 ml @ 200 mls/hr
IV .Q5H45M KAMRAN with Sodium
Bicarbonate 150 Meq Rx#:
[id number]
Vaso 202.5 / 202.5
IV piggybacks 525 / 525 250 / 250
Output:
Urine, Hernandez 5485 / 5785 460 / 460
Urine, Voided 300 / 300
Straight cath output 1300 / 1300
Vital Signs
Temp Pulse Resp BP Pulse Ox
101.2 F H 106 17 134/73 99
10/31/23 08:47 10/31/23 09:00 10/31/23 09:00 10/30/23 21:25 10/31/23 09:49
Lab Results
10/31/23 05:21
10/31/23 05:20
Calcium 8.2 mg/dl (8.4-10.2) L 10/31/23 05:20
Phosphorus 2.3 mg/dl (2.5-4.5) L 10/31/23 05:20
Magnesium 2.6 mg/dl (1.6-2.3) H 10/31/23 05:20
Total Bilirubin 0.8 mg/dl (0.2-1.3) 10/31/23 05:20
AST 50 U/L (17-59) 10/31/23 05:20
ALT 28 U/L (0-50) 10/31/23 05:20
Alkaline Phosphatase 114 U/L (38-126) 10/31/23 05:20
Total Protein 5.4 g/dl (6.3-8.2) L 10/31/23 05:20
Albumin 2.8 g/dl (3.5-5.0) L 10/31/23 05:20
Physical Exam
-
Gen: NAD
RLE: dressing changed with wound care, see picture for details, clean, no significant drainage, no purulence, no necrosis, erythema and ecchymosis improved, continued edema, no worsening bullae, pain with palpation, palpable pulses, ROM limited by
pain but intact
--- NOTE | 2023-10-31 10:26 | WOUNDNOTE ---
R LATERAL FOOT WITH FLASH LIGHT
--- NOTE | 2023-10-31 10:27 | PTCARENOTE ---
Dressing change performed by Wound RN and Dr. Blanchard. Wet to dry with vashe performed. See note. Hernandez cath removed per protocol.
--- NOTE | 2023-10-31 10:28 | WOUNDNOTE ---
WON RN NOTE: Followed up today along with nurse Israel, Dr. Blanchard and Dr. Murphy at bedside. s/p surgical debridement of R foot deep to intact fascia. No new sites of necrotizing tissue noticed, Vashe wet to dry dressing applied with jon wrap
forefoot to below knee. R leg elevated on several pillows. Patient tolerated procedure with minimal discomfort. Will update wound care orders. Patient to follow up with Surgeon post discharge and then wound care center most likely. Will follow as
needed.
[2023-10-31] MEDS: SENOKOT-S 1 TABLET PO (11:06)
[2023-10-31] MEDS: NEURONTIN 300 MG PO ×2 (11:07→20:06)
[2023-10-31 11:28] LABS: Glucose - Point of Care 182 mg/dl (70-99)
--- NOTE | 2023-10-31 11:50 | W.PN.NEPH.PH ---
Today's Communication / Plan
-
- s/o
Assessment/Plan
-
Assessment:
GIORGIO
NAGMA, prior lactic acidosis resolved
hyponatremia
mildly elevated CK
Soft tissue infection vs. nec fasc
prior hx of nephrolithaisis
Plan:
- Cr peaked at 5.2, now down to 1.2. I wonder if this is all in the setting of sepsis leading to ATN? bites that can cause acute renal failure -- brown recluse spider bite (which can cause a pigment nephropathy) vs. snake bites (less likely in this
area)
- CK levels now down
- fluids and pressors per primary team
- s/p debrdiement, feeling better today
- please monitor I/Os
- avoid further nephrotoxins
Nephrology will sign off at this time. Rest of care per primary tea m
-
-
Date of Service: October 31, 2023
CC / HPI / ROS
-
Chief Complaint:
GIORGIO
History of Present Illness:
necrotizing soft tissue infection, s/p debridement
Cr peak 5.2, now down to 1.2
Review of Systems:
pressor requriements improving
overall feeling better
Labs
-
Labs:
WBC 29.1 10^3/uL (4.8-10.8) H 10/31/23 05:21
RBC 3.23 10^6/uL (4.70-6.10) L 10/31/23 05:21
Hgb 9.7 g/dL (13.0-18.0) L 10/31/23 05:21
Hct 27.1 % (39.0-52.0) L 10/31/23 05:21
Plt Count 242 10^3/uL (130-400) 10/31/23 05:21
Sodium 134 mmol/L (135-145) L 10/31/23 05:20
Potassium 3.7 mmol/L (3.5-5.1) 10/31/23 05:20
Chloride 99 mmol/L (98-107) 10/31/23 05:20
Carbon Dioxide 26 mmol/L (22-30) 10/31/23 05:20
BUN 39 mg/dl (9-20) H 10/31/23 05:20
Creatinine 1.2 mg/dL (0.7-1.3) 10/31/23 05:20
eGFR > 60.00 10/31/23 05:20
Glucose 202 mg/dl (70-99) H 10/31/23 05:20
Calcium 8.2 mg/dl (8.4-10.2) L 10/31/23 05:20
Phosphorus 2.3 mg/dl (2.5-4.5) L 10/31/23 05:20
Albumin 2.8 g/dl (3.5-5.0) L 10/31/23 05:20
Physical Exam
-
Vital Signs:
Vital Signs
Temp Pulse Resp BP Pulse Ox
98.8 F 96 12 102/59 96
10/31/23 11:24 10/31/23 11:00 10/31/23 11:00 10/31/23 10:53 10/31/23 10:00
Cardiovascular:: Regular rate and rhythm
Respiratory:: Bilateral: Coarse
Lung Excursion:: Normal
Abdomen:: Nontender and Soft
Bowel Sounds:: Normal
Extremity Edema:: None: Bilateral: (dressing with serosanguinous drainage)
Hernandez Catheter: Yes
--- NOTE | 2023-10-31 13:19 | PTCARENOTE ---
Assessment unchanged. pt sleeping soundly. Brachial chapincito dampened, flushes easily, but giving a BP that does not correlate with NIBP. Awaiting Anesthesia to remove line.
--- NOTE | 2023-10-31 13:34 | PTCARENOTE ---
Brachial chapincito removed by anesthesia without issue.
[2023-10-31] MEDS: NEUTRA-PHOS POWDER PACKET 500 MG PO ×2 (14:13→17:31)
[2023-10-31 17:18] LABS: Glucose - Point of Care 133 mg/dl (70-99)
--- NOTE | 2023-10-31 17:22 | PTCARENOTE ---
Assessment unchanged. Plan of care discussed with .
[2023-10-31] MEDS: LOVENOX 40 MG SC (17:31)
[2023-10-31] MEDS: NOVOLOG FLEXPEN-MODERATE RESISTANCE SC (17:31)
[2023-10-31] MEDS: VENTOLIN NEBULES 2.5 MG INH (17:47)
--- NOTE | 2023-10-31 17:59 | PTCARENOTE ---
Exp wheezes audible. Albuterol neb given.
--- NOTE | 2023-10-31 20:26 | PTCARENOTE ---
Pt Aox3, NSR/ST on monitor, SBP 70's MAP of 56, Levo restarted. C/o 10/10 pain in right foot, Scheduled and PRN pain medications given. +2 edema to right foot, positive pulse with Doppler. Right leg is wrapped with jon bandage, CDI, and elevated on
pillow. Pt able to turn self, educated on IS use.
[2023-10-31 22:10] LABS: Glucose - Point of Care 151 mg/dl (70-99)
[2023-10-31] MEDS: FLOMAX 0.4 MG PO (22:19)
[2023-10-31] MEDS: LANTUS 0.05 UNITS SC (22:19)
[2023-11-01] VITALS (42 sets, daily range): BP systolic 70–126; BP diastolic 44–81; PULSE 95–96; BMI 43.0
[2023-11-01] MEDS: MERREM 500 MG IV ×2 (02:35→07:43)
[2023-11-01] MEDS: STERILE WATER FOR INJECTION 10 ML IV ×2 (02:35→07:43)
[2023-11-01] MEDS: DILAUDID 1 MG IV ×3 (02:49→15:57)
[2023-11-01] MEDS: LEVOPHED 250 IV (03:34)
[2023-11-01 03:37] LABS: Hematocrit 24.7 % (39.0-52.0); Hemoglobin 8.6 g/dL (13.0-18.0); Mean Corp Hgb Conc. 34.8 g/dL (33.0-37.0); Mean Corpuscular Hgb 29.6 pg (27.0-31.0); Mean Corpuscular Volume 84.9 fL (80.0-94.0); Mean Platelet Volume 9.9 fL (7.4-10.4); Platelet Count 305 10^3/uL (130-400); Red Blood Cell Count 2.91 10^6/uL (4.70-6.10); White Blood Cell Count 33.6 10^3/uL (4.8-10.8)
[2023-11-01 03:57] LABS: % Basophils 0.3 % (0-2); % Immature Granulocytes 1.2 % (0-0.5); % Lymphocytes 3.3 % (20.5-51.1); % Monocytes 3.9 % (1.7-9.3); % Neutrophils 91.3 % (42.2-75.2); Absolute Basophils 0.1 10^3/uL (0-0.2); Absolute Immature Granulocytes 0.4 10^3/uL (0-0.05); Absolute Lymphocytes 1.1 10^3/uL (1.2-3.4); Absolute Monocytes 1.3 10^3/uL (0.1-0.6); Absolute Neutrophils 30.7 10^3/uL (1.4-6.5); Nucleated Red Blood Cells % 0 % (-)
[2023-11-01 04:03] LABS: ALT (SGPT) 21 U/L (0-50); AST (SGOT) 38 U/L (17-59); Albumin 2.5 g/dl (3.5-5.0); Alkaline Phosphatase 122 U/L (38-126); Blood Urea Nitrogen 49 mg/dl (9-20); Calcium 7.9 mg/dl (8.4-10.2); Carbon Dioxide 30 mmol/L (22-30); Chloride 94 mmol/L (98-107); Estimated Creatinine Clearance 73 ml/min; Glucose 142 mg/dl (70-99); Potassium 3.7 mmol/L (3.5-5.1); Sodium 131 mmol/L (135-145); Total Bilirubin 0.8 mg/dl (0.2-1.3); eGFR 49.11
--- NOTE | 2023-11-01 05:46 | PTCARENOTE ---
Pt remains on Levo, titrating for MAP >65. Oxygen in creased 4L for sats >90%.
[2023-11-01] MEDS: NOVOLOG FLEXPEN-MODERATE RESISTANCE SC ×3 (07:42→17:00)
[2023-11-01] MEDS: MIRALAX 17 GRAMS PO (07:43)
[2023-11-01] MEDS: SENOKOT-S 1 TABLET PO (07:43)
[2023-11-01] MEDS: MS CONTIN (EXTENDED RELEASE) 30 MG PO ×2 (07:43→20:13)
[2023-11-01] MEDS: NEURONTIN 300 MG PO ×2 (07:43→20:13)
--- NOTE | 2023-11-01 07:43 | W.PN.ID1 ---
Date of Service
Date of Service: November 01, 2023
Today's Communication
Continue Penicillin G and Clindamycin. Follow clinically
Assessment / Plan
48 year old male with history relevant for chronic pain on a relatively high dose of oxycodone, obesity chronically presenting for severe pain, redness, swelling, tenderness in the RLE progressing over about a week prior to presentation to health
care, initial in shock. Physical exam without crepitus or pain out of proportion to physical findings but with notable swelling and bullae initially. Taken to the OR and found to have necrotizing SSTI which was debrided, thankfully without
evidence of fasciitis
Septic Shock - improving
Necrotizing SSTI, s/p excisional debridement on 10/30/2023
MSOF
Rhabdomyolysis - improving
GIORGIO - rapidly improving
Prediabetes
Class III Obesity
- tissue culture of R foot and wound culture of R foot fluid: Group A Strep pyogenes
- Anaerobic culture pending
- blood cultures x2 are in progress - no growth to date
- CT leg without soft tissue gas
- pleased to see CK downtrending
- appreciate surgical team
- Vancomycin and Meropenem discontinued. Continue Clindamycin. Given culture results, Penicillin G started 5,000,000 units Q24
- Weaned off pressors today
- follow clinically
- outpatient would recommend follow up with endocrinology or [facility] - obesity management will likley improve chronic back pain as well as decrease risk of future infections.
Chief Complaint
-: Other (necrotizing SSTI, shock)
Subjective / Review of Systems
Complains of throbbing pain in R leg, just below knee.
Review of Systems: No Fever, No Chills, No Headache and Other (R Leg pain )
Vital Signs / Physical Exam
Vital Signs
Vital Signs
Temp Pulse Resp BP Pulse Ox
97.7 F 87 16 109/54 94
11/01/23 03:02 11/01/23 05:00 11/01/23 05:00 11/01/23 05:00 11/01/23 05:00
Physical Exam
Constitutional: No Acute Distress, Comfortable and Obese
Cardiovascular: Regular Rate and S1/S2; Negative Murmur or Rub
Pulmonary: Clear and Non Labored; Negative Wheezes, Rales or Rhonchi
Extremities: Edema (R L non-pitting edema from foot to upper thigh. Tender. Mild erythema. )
Skin: Warm and Dry
Wound: Other
Neurological: Awake and Alert
Psychological: Calm
Objective Data
Lab Data
Lab Results
11/01/23 03:22
11/01/23 03:22
ESR 71 mm/hour (0-20) H 10/29/23 23:34
PT 15.3 Sec (11.4-14.6) H 10/29/23 22:06
INR 1.23 10/29/23 22:06
APTT 39.1 Sec (23.4-35.0) H 10/29/23 22:06
Estimated Creat Clear 73 ml/min 11/01/23 03:22
Lactic Acid 1.7 mmol/L (0.7-2.0) 10/30/23 14:00
Total Bilirubin 0.8 mg/dl (0.2-1.3) 11/01/23 03:22
AST 38 U/L (17-59) 11/01/23 03:22
ALT 21 U/L (0-50) 11/01/23 03:22
Alkaline Phosphatase 122 U/L (38-126) 11/01/23 03:22
C-Reactive Protein Cancelled 10/29/23 21:54
Most recent labs reviewed.
Micro Results:
10/29/23 21:04 Blood Culture - Preliminary
Blood/Venous No Growth in 48 hours- Final report to follow
10/29/23 20:50 Blood Culture - Preliminary
Blood/Venous No Growth in 48 hours- Final report to follow
10/30/23 18:26 Tissue Culture - Preliminary
Foot - Right Streptococcus pyogenes
Gram Stain - Preliminary
10/30/23 18:12 Wound Culture - Preliminary
Foot - Right Streptococcus pyogenes
Gram Stain - Preliminary
10/30/23 18:12 Anaerobic Culture - Preliminary
Foot - Right Culture pending. Anaerobic cultures are examined after 3
days incubation. Additional information to follow.
10/30/23 04:06 Urine Culture - Final
Urine NO GROWTH
10/29/23 23:34 MRSA Screen - Final
Nose No Methicillin Resistant Staphylococcus aureus isolated.
[2023-11-01 07:51] LABS: Glucose - Point of Care 140 mg/dl (70-99)
--- NOTE | 2023-11-01 07:55 | W.PN.HOSP.TC ---
Today's Communication/Plan
-
CPAP when sleeping
Assessment / Plan
Assessment / Plan
Gen-AAOx3, NAD, morbid obesity
HEENT-NC, AT, anicteric, clear oral mm
Neck-supple
CV-reg, no M, +S1/S2
Lungs-clear B/L
Abd-soft, NT, ND
Ext-diffuse right lower extremity edema
Musculoskeletal-no cyanosis, clubbing
Skin-warm and dry, right lower extremity erythema, right foot dorsal wound with purulence
Neuro-grossly non-focal
Psych-calm, cooperative
Septic shock -due to right foot necrotizing fasciitis. Underwent excisional debridement October 29. Currently on vancomycin, meropenem per infectious disease.
Regular diet per surgery. Activity per surgery recommendation.
Still on Levophed, wean down as able. Vasopressin discontinued. Rising WBC concerning. Last fever 10/30 morning. Blood cultures negative. Wound culture shows Streptococcus pyogenous.
GIORGIO -due to septic shock. GIORGIO improved transiently, however creatinine starting to rise again, 1.7 today. Possibly due to ongoing hypotension. He has a Hernandez catheter already. Will discuss with nephrology.
Hyponatremia -stable at 131.
Hypokalemia -resolved.
Normocytic anemia -unknown acuity or etiology. No evidence of hemolysis. Monitor for now. Baseline unknown.
Acute nontraumatic rhabdomyolysis -CPK improved. Suspect due to necrotizing fasciitis.
Troponin elevation -suspect acute nonischemic myocardial injury due to critical illness, septic shock.
Impaired fasting glucose -hemoglobin A1c 6.3%. Weight loss is the gan. Glucose 142 this morning, started on Lantus 5 units at bedtime.
Essential hypertension -hold antihypertensives for shock.
Chronic low back pain/chronic opiate dependence -he is on MS Contin 30 mg every 12 hours [id number] and oxycodone with acetaminophen every 6 hours as needed at home for chronic back pain. Continue morphine today but may need to discontinue if
renal function worsens. Continue IV Dilaudid as needed. Patient currently complaining of significant right lower extremity pain due to infection. Hold off on NSAIDs given renal insufficiency.
Hx nephrolithiasis -history of stenting, nephrostomy in the past.
Diverticulosis -noted on abdominal CT.
Possible mild chronic T8/T9 partial vertebral compression fractures -noted on CT.
ARABELLA -not on CPAP due to noncompliance, insurance revoked his machine at home. Nursing notes desaturation when sleeping. Will order CPAP to use in the hospital. Patient agreeable.
Morbid obesity due to excess calories
Full code
Anticipated Discharge: > 48 hours
Subjective/Interval History
-
Date of Service: November 01, 2023
Patient seen and examined. Complaining of right foot pain.
Objective Data
-
Labs:
Laboratory Results
11/01/23
03:22
WBC 33.6 H
Hgb 8.6 L
Hct 24.7 L
Plt Count 305 D
Sodium 131 L
Potassium 3.7
Chloride 94 L
Carbon Dioxide 30
BUN 49 H
Creatinine 1.7 H
Glucose 142 H
Calcium 7.9 L
Total Bilirubin 0.8
AST 38
ALT 21
Alkaline Phosphatase 122
Vital Signs:
Vital Signs
Temp Pulse Resp BP Pulse Ox
98.9 F 87 16 109/54 94
11/01/23 07:54 11/01/23 05:00 11/01/23 05:00 11/01/23 05:00 11/01/23 05:00
I&O
10/31/23 11/01/23 11/02/23
06:59 06:59 06:59
Intake Total 4847.5 / 4970.0 1385.0 / 1385.0
Output Total 5485 / 5785 1215 / 1215
Balance -637.5 / -815.0 170.0 / 170.0
Review of Systems
-
History Source: Patient
All other systems: Reviewed and negative
[2023-11-01] MEDS: ROXICODONE 5 MG PO ×2 (07:59→13:59)
--- NOTE | 2023-11-01 08:30 | PTCARENOTE ---
Pt Aox3, NSR on monitor, Levo weaned off. C/o 10/10 pain in right foot, Scheduled and PRN pain medications given. +2 edema to right foot, positive pulse with Doppler. Right leg is wrapped with jon bandage, CDI, and elevated on pillow. Pt able to
turn self, educated on IS use.
--- NOTE | 2023-11-01 08:39 | W.PN.INTV ---
Today's Communication / Plan
Recommendations
MAP>65; he is now off levophed since this AM
Pain control
Follow-up culture sensitivities
ABx as per ID
Goal SpO2 >90-94%
If patient remains off vasopressors by this evening, will downgrade out of ICU to IMU level of care. Pulmonary service will continue to briefly follow along.
Assessment
-
Assessment: 48-year-old male non-smoker with past medical history of prediabetes, cervicalgia, hypertension and recurrent nephrolithiasis presents with swollen right foot that is painful. He states that he had a tree cut down in his backyard on
this past , and walked back to see the progress and believes something bit him. He has had worsening right foot swelling and pain since then. In the ER he was febrile to 103 �F, tachycardic to 107, breathing at 20-30 breaths/min, BP 72/38,
and saturating 91% on room air. Labs showed leukocytosis to 19.8, Hb 9.2, ESR 71, ABG with pH 7.31, pCO2 33, serum sodium 126, creatinine 4.4, BUN 80, serum bicarbonate 15, lactate 3.2, CK10 24, CRP >270, albumin 2.5, with negative COVID-19 antigen
and negative Lyme screen. Blood cultures were collected, with CXR showing low lung volumes without pneumonia. Right foot/tib�fib XR showed no acute osseous abnormality or foreign body. CT abdomen/pelvis showed no obstructive uropathy,
hepatosplenomegaly, descending colon/sigmoid diverticulosis and suspected old T8-[address] fractures[address] right lower extremity showed no acute osseous abnormality with diffuse soft tissue swelling with skin thickening along
the dorsum of the foot and lateral ankle with no soft tissue gas, foreign body or focal fluid collection. RLE duplex ultrasound was negative for DVT. He was given 3 L of NS 0.9%, Ofirmev, tetanus shot, Zosyn/IV vancomycin and started on Levophed
due to persistent hypotension with SBP in the 60s�70s. Patient transferred to the ICU for further care, and critical care services consulted for additional management/recommendations.
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
Impression:
#Septic shock due to RLE cellulitis/necrotic foot wound due to Strep pyogenes; no evidence of necrotizing fasciitis from OR on 10/30/2023 - shock state resolved as of 11/01/2023
#Necrotizing soft tissue infection of right foot s/p excisional debridement (POD #2)
#GIORGIO
#Acute respiratory failure with hypoxia likely due to sepsis with acute organ dysfunction
#Anemia
#Metabolic acidosis with increased anion gap - resolved
#Hyponatremia likely due to prerenal GIORGIO
#Rhabdomyolysis
#Elevated troponin (peaked at 0.051 on 10/30/2023)
#Lactic acidosis - normalized
#Hepatosplenomegaly
#Obesity (BMI: 42.7)
#At high risk of obstructive sleep apnea
#Prediabetes mellitus (HbA1c: 6.3) with hyperglycemia
Plan:
- Continue antibiotics - currently on meropenem + clindamycin s/p zosyn (given 10/28 - 10/29) and s/p IV vanco (given 10/28 - 10/30)
- ID on board and recs appreciated - defer ABx to ID
- s/p excisional debridement on 10/30/2023; follow-up tissue cultures sensitivities
- Pain control with MS Contin, prn oxycodone + prn Dilaudid
- Narcan prn
- Wound care
- Patient successfully weaned off of Levophed this AM; vasopressin has been weaned off since 10/30; Maintain MAP >65
- Maintain SpO2 >90-94% with supplemental oxygen and wean as tolerated
- prn nebulized bronchodilators
- Trend creatinine
- Patient was hypotensive on 10/31/2023, which is why I believe his GIORGIO has worsened today
- Renally dose all medication/ABx
- Nephrology on board, recommendations appreciated
- No additional IVF given he does toelrate his PO diet when he eats, although he does have poor appetite.
- With his GIORGIO, I want to avoid volume overload, hold off on restarting IVF for now and re-assess daily
- Trend serum HCO3
- Trend CPK
- Transfuse if needed to keep Hb >7g/dL, plt>50k
- Replete electrolytes with K>4, Mg>2
- Maintain euglycemia with goal BG 140-180 with moderate resistance ISS
- Stop Lantus given his appetite has been poor and his POCT BG have been downtrending; restart if necessary
- Incentive spirometer encouraged
- Outpatient follow-up for sleep disordered breathing discussion
- DVT ppx: HSQ
If patient remains off vasopressors by this evening, will downgrade out of ICU to IMU level of care. Pulmonary service will continue to briefly follow along.
Critical care statement: A total of 41 minutes of critical care time was provided for this patient today. This includes management of unstable vital signs, evaluation of the patient at bedside, reviewing the patient's pertinent medical records
including radiographs, microbiology, laboratory evaluations, and discussion with primary team, consultants, pharmacy, nutrition, physical therapy, case management, charge nurse, critical care nursing, and respiratory therapy.
Data:
CT right lower extremity 10/30/2023:
No acute osseous abnormality.
Diffuse soft tissue swelling throughout the lower extremity with skin thickening along the dorsum of the foot and lateral ankle likely representing cellulitis. No soft tissue gas, radiopaque foreign body, or focal fluid collection.
Subjective Dataa
Subjective Data
Date of Service:
Date of Service: November 01, 2023
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
Subjective:
Patient seen + evaluated this morning. at bedside. All questions were answered. Vasopressors have been off since 9:15 AM today. Patient afebrile overnight, current BP is: 94/55, heart rate 93, saturating 95% on RA, although he does
desaturate overnight requiring supplemental oxygen. He apparently has a Hx of ARABELLA but non-compliant to CPAP. His GIORGIO has worsened today. He denies CP, abd pain, N/V/f/c. He has poor appetite, does not like the food here and says he 'needs to
lose weight anyway.' His right foot is still very painful and throbbing.
Review of Systems
General: Other (Negative unless mentioned above)
Objective Data
Data Reviewed
Vital Signs / I&O / Oxygen:
Vital Signs
Temp Pulse Resp BP Pulse Ox
98.9 F 87 16 109/54 94
11/01/23 07:54 11/01/23 05:00 11/01/23 05:00 11/01/23 05:00 11/01/23 05:00
Intake and Output
10/31/23 11/01/23 11/02/23
06:59 06:59 06:59
Intake Total 4847.5 / 4970.0 1400.0 / 1415.0 45 / 45
Output Total 5485 / 5785 1215 / 1215
Balance -637.5 / -815.0 185.0 / 200 45 / 45
SaO2 94
Nasal Cannula flow liters per 2
minute
Physical Exam
General: Respiratory Distress (Negative), Comfortable, Chills (Negative) and Other (Obese male)
HEENT: Normocephalic and Anicteric
Cardiovascular: S1-S2 and Peripheral Edema (+1 RLE edema, left leg without edema)
Respiratory: Wheeze (Negative), Crackles (Negative), Rhonchi (Negative) and Non-Labored Respirations
GI: Soft, Distended (Abdominal obesity), Non Tender and Normal Bowel Sounds
Neurology: AO x 3 and Tremors (Negative)
Skin: Warm, Dry and Other (Bandage on right lower extremity)
Labs/Micro/Reports
Lab Data
11/01/23 03:22
11/01/23 03:22
Microbiology
10/30/23 18:26 Foot - Right Tissue Culture - Preliminary
Streptococcus pyogenes
10/30/23 18:26 Foot - Right Gram Stain - Preliminary
10/30/23 18:12 Foot - Right Wound Culture - Preliminary
Streptococcus pyogenes
10/30/23 18:12 Foot - Right Gram Stain - Preliminary
10/29/23 21:04 Blood/Venous Blood Culture - Preliminary
No Growth in 48 hours- Final report to follow
10/29/23 20:50 Blood/Venous Blood Culture - Preliminary
No Growth in 48 hours- Final report to follow
10/30/23 18:12 Foot - Right Anaerobic Culture - Preliminary
Culture pending. Anaerobic cultures are examined after 3
days incubation. Additional information to follow.
10/30/23 04:06 Urine Urine Culture - Final
NO GROWTH
10/29/23 23:34 Nose MRSA Screen - Final
No Methicillin Resistant Staphylococcus aureus isolated.
--- NOTE | 2023-11-01 08:46 | W.PN.ID1 ---
Date of Service
Date of Service: November 01, 2023
Today's Communication
another day of clindamycin
switched to penicillin g
Assessment / Plan
48 year old male with history relevant for chronic pain on a relatively high dose of oxycodone, obesity chronically presenting for severe pain, redness, swelling, tenderness in the RLE progressing over about a week prior to presentation to health
care, initial in shock. Physical exam without crepitus or pain out of proportion to physical findings but with notable swelling and bullae initially. Taken to the OR and found to have necrotizing SSTI which was debrided, thankfully without
evidence of fasciitis, culture with GAS as expected.
Septic Shock - improving
Necrotizing SSTI, s/p excisional debridement on 10/30/2023
GIORGIO - increased again
Prediabetes
Class III Obesity
- tissue culture of R foot and wound culture of R foot fluid: Group A Strep aka S pyogenes, no other pathogens IDd
- Anaerobic cultures pending
- blood cultures x2 are in progress - no growth to date
- appreciate surgical team
- given overall clinical picture I have extended the clindamycin another day
- start penicillin g 5 million units IV q4 hours
- patient is overall improving but remains critically ill
Chief Complaint
-: Other (necrotizing SSTI, shock)
Subjective / Review of Systems
no further fevers x24 hours
levophed weaned down to 2 mcg/min, vasopressin off over 24 hours
Vital Signs / Physical Exam
Vital Signs
Vital Signs
Temp Pulse Resp BP Pulse Ox
98.9 F 87 16 109/54 94
11/01/23 07:54 11/01/23 05:00 11/01/23 05:00 11/01/23 05:00 11/01/23 05:00
Physical Exam
Constitutional: No Acute Distress and Non-toxic
Cardiovascular: Regular Rate and S1/S2; Negative Murmur or Rub
Pulmonary: Clear and Symmetric; Negative Wheezes or Rales
Gastrointestinal: Soft, Non Tender, Non Distended and Normal Bowel Sounds
Skin: Warm and Dry; Negative Rash or Jaundice
Wound: Other (compression dressing in place, clean, dry, intact - did not remove per patient request)
Lines: PICC (brusising under the line)
Objective Data
Lab Data
Lab Results
11/01/23 03:22
11/01/23 03:22
ESR 71 mm/hour (0-20) H 10/29/23 23:34
PT 15.3 Sec (11.4-14.6) H 10/29/23 22:06
INR 1.23 10/29/23 22:06
APTT 39.1 Sec (23.4-35.0) H 10/29/23 22:06
Estimated Creat Clear 73 ml/min 11/01/23 03:22
Lactic Acid 1.7 mmol/L (0.7-2.0) 10/30/23 14:00
Total Bilirubin 0.8 mg/dl (0.2-1.3) 11/01/23 03:22
AST 38 U/L (17-59) 11/01/23 03:22
ALT 21 U/L (0-50) 11/01/23 03:22
Alkaline Phosphatase 122 U/L (38-126) 11/01/23 03:22
C-Reactive Protein Cancelled 10/29/23 21:54
Most recent labs reviewed as above and in addition:
note progression of leukocytosis and 1 point declin in hgb
plt also notably increased to 305 today
progression of L shift to 90%
still without eosinophils
ck down to 300s
Micro Results:
10/30/23 18:26 Tissue Culture - Preliminary
Foot - Right Streptococcus pyogenes
Gram Stain - Preliminary
10/30/23 18:12 Wound Culture - Preliminary
Foot - Right Streptococcus pyogenes
Gram Stain - Preliminary
10/29/23 21:04 Blood Culture - Preliminary
Blood/Venous No Growth in 48 hours- Final report to follow
10/29/23 20:50 Blood Culture - Preliminary
Blood/Venous No Growth in 48 hours- Final report to follow
10/30/23 18:12 Anaerobic Culture - Preliminary
Foot - Right Culture pending. Anaerobic cultures are examined after 3
days incubation. Additional information to follow.
10/30/23 04:06 Urine Culture - Final
Urine NO GROWTH
10/29/23 23:34 MRSA Screen - Final
Nose No Methicillin Resistant Staphylococcus aureus isolated.
--- NOTE | 2023-11-01 10:15 | WOUNDNOTE ---
[facility] RN note: Patient seen with Dr. Renee. Patient's R foot wound very tender. Wound pink with scattered yellow/white fibrin. Skin discolored ecchymotic purple around wound. R Achilles with 1.5cm red area. Achilles padded with non adhesive foam.
Víctor agreeable to continue Vashe moistened gauze and increase to BID. Dr. Renee stated he didn't want R knee high Sudhakar wrap but to use Sudhakar wrap to secure dressing and no Kerlix. Dressing applied as ordered. Plan is possible eventual wound vac when
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 Not sure if surrounding skin will tolerate vac drape (Dermatac vac drape may be tolerated). Surgeon following.
--- NOTE | 2023-11-01 11:07 | PTCARENOTE ---
Dressing change performed with Surgeon, decaler, and bedside RN. Wet-to-dry with vashe, ABD pads, and Sudhakar wrap to hold dressing-not as compression.
--- NOTE | 2023-11-01 11:10 | PTCARENOTE ---
Pt asleep upon entering room. Pt asking for pain medication 10 min after PRN pain medication administered, having forgot that he just took roxycodone. Pt assisted OOB to chair using assist X2 and rolling walker. Pt required strong encouragement,
discussion of expectation of pain relief and hazards of over medication with narcotics. Despite medication with any PRNs, pt still stating pain 10/10. HR WNL, drifts to sleep, no grimace. Appears to be catastrophizing, discussing with all
events he will be missing while in hospital, some that are months away. Refusing to eat, stating first nausea but then that he wants to loose weight. Instructed pt on importance of good nutrition to facilitate wound healing.
--- NOTE | 2023-11-01 11:56 | CM ---
CM following re: discharge planning.
Discussed in Rounds, reviewed pt's chart, met with pt. Per rounds meeting, pt is POD#2 s/p incision and debridement of RLE/foot, currently on vancomycin, meropenem.
PT and OT will evaluate the pt to determine a level of care at discharge.
D/C plan: most likely home with family support. Will follow Surgery and ID recommendations
CM will follow with discharge plan updates as hospitalization progresses
--- NOTE | 2023-11-01 12:04 | W.PN.GS2 ---
Today's Communication / Plan
-
Cont abx
re-eval wound Monday for poss vac
Assessment / Plan
-
Patient is a 48 yo M p/w necrotizing soft tissue infection of RLE POD#2 s/p incision and debridement of RLE/foot
Febrile, low grade tachycardia, BP stable now off pressors
Wound Cx: rare GPCs
Evidence of improvement physical exam with dressing change. No worsening signs of erythema, bulla, pain, or purulence. Recommend continued medical management with local wound care (orders placed) and antibiotics. Continue to monitor closely and
trend fever curve and WBC.
-- Regular diet
-- Abx: ID following, appreciate rcs
-- Local wound care: WTD gauze BID with gentle jon wrap to secure gauze
-- GS will follow peripherally, may benefit from wound vac application when wound is ready (possibly 1-2 more days)
Subjective Data
-
Date of Service: November 01, 2023
Off pressors, remains tender
Objective Data
-
Intake and Output
10/31/23 11/01/23 11/02/23
06:59 06:59 06:59
Intake Total 4847.5 / 4970.0 1400.0 / 1415.0 285 / 285
Output Total 5485 / 5785 1215 / 1215
Balance -637.5 / -815.0 185.0 / 200 285 / 285
Intake:
Oral fluids 240 / 240 480 / 480 240 / 240
IV fluids (Total) 4082.5 / 4205.0 470.0 / 485.0 45 / 45
Levophed 780.0 / 802.5 270.0 / 285.0 45 / 45
Lr 1,000 ml @ 100 mls/hr IV . 900 / 1000 200 / 200
Q10H [facility] Rx#:[id number]
Sterile Water For Injection 2200 / 2200
1000 ml 1,000 ml @ 200 mls/hr
IV .Q5H45M KAMRAN with Sodium
Bicarbonate 150 Meq Rx#:
[id number]
Vaso 202.5 / 202.5
IV piggybacks 525 / 525 450 / 450
Output:
Urine, Hernandez 5485 / 5785 640 / 640
Urine, Voided 575 / 575
Vital Signs
Temp Pulse Resp BP Pulse Ox
98.9 F 96 18 83/52 96
11/01/23 07:54 11/01/23 10:30 11/01/23 10:30 11/01/23 10:30 11/01/23 10:00
Lab Results
11/01/23 03:22
11/01/23 03:22
Calcium 7.9 mg/dl (8.4-10.2) L 11/01/23 03:22
Phosphorus 2.3 mg/dl (2.5-4.5) L 10/31/23 05:20
Magnesium 2.6 mg/dl (1.6-2.3) H 10/31/23 05:20
Total Bilirubin 0.8 mg/dl (0.2-1.3) 11/01/23 03:22
AST 38 U/L (17-59) 11/01/23 03:22
ALT 21 U/L (0-50) 11/01/23 03:22
Alkaline Phosphatase 122 U/L (38-126) 11/01/23 03:22
Total Protein 5.0 g/dl (6.3-8.2) L 11/01/23 03:22
Albumin 2.5 g/dl (3.5-5.0) L 11/01/23 03:22
Physical Exam
-
Gen: NAD
RLE: wound bed with superficial slough, no sign of bleeding, purulence or necrosis
[2023-11-01 12:05] LABS: Glucose - Point of Care 110 mg/dl (70-99)
[2023-11-01] MEDS: TYLENOL 650 MG PO ×2 (12:48→19:14)
--- NOTE | 2023-11-01 12:53 | PTCARENOTE ---
Pt called for analgesia. He stated he has horrible throbbing pain all up and down his right leg and also in his foot. Tylenol administered until Oxycodone can be administered. His foot is elevated on a pillow.
[2023-11-01] MEDS: CLEOCIN 50 IV ×2 (13:00→20:13)
[2023-11-01] MEDS: PENICILLIN 110 UNITS IV ×3 (13:01→20:22)
[2023-11-01] MEDS: HEPARIN 5000 UNITS SC (16:24)
--- NOTE | 2023-11-01 16:35 | PTCARENOTE ---
Pt unable to void throughout shift. Bladder scanned for 1025cc. Straight cath performed without issue for 1100cc out. Rubber Ball Finisher notified.
[2023-11-01 16:55] LABS: Glucose - Point of Care 142 mg/dl (70-99)
[2023-11-01] MEDS: FLOMAX 0.8 MG PO (22:18)
[2023-11-01 22:37] LABS: Glucose - Point of Care 109 mg/dl (70-99)
[2023-11-02] VITALS (22 sets, daily range): BP systolic 83–127; BP diastolic 33–96; BMI 42.8
[2023-11-02] MEDS: PENICILLIN 110 UNITS IV ×7 (00:15→23:47)
[2023-11-02] MEDS: HEPARIN 5000 UNITS SC ×4 (00:15→23:47)
[2023-11-02] MEDS: DILAUDID 1 MG IV ×6 (00:38→21:35)
[2023-11-02] MEDS: CLEOCIN 50 IV ×3 (03:23→23:46)
[2023-11-02] MEDS: ROXICODONE 5 MG PO ×3 (04:28→23:59)
[2023-11-02 04:31] LABS: % Basophils 0.3 % (0-2); % Eosinophils 0.7 % (0-6); % Immature Granulocytes 1.5 % (0-0.5); % Lymphocytes 7.4 % (20.5-51.1); % Neutrophils 85.1 % (42.2-75.2); Absolute Basophils 0.1 10^3/uL (0-0.2); Absolute Eosinophils 0.1 10^3/uL (0-0.7); Absolute Immature Granulocytes 0.3 10^3/uL (0-0.05); Absolute Lymphocytes 1.6 10^3/uL (1.2-3.4); Absolute Monocytes 1.1 10^3/uL (0.1-0.6); Absolute Neutrophils 17.9 10^3/uL (1.4-6.5); Hematocrit 25.7 % (39.0-52.0); Hemoglobin 8.8 g/dL (13.0-18.0); Mean Corp Hgb Conc. 34.2 g/dL (33.0-37.0); Mean Corpuscular Hgb 30.2 pg (27.0-31.0); Mean Corpuscular Volume 88.3 fL (80.0-94.0); Mean Platelet Volume 9.7 fL (7.4-10.4); Nucleated Red Blood Cells % 0 % (-); Platelet Count 273 10^3/uL (130-400); Red Blood Cell Count 2.91 10^6/uL (4.70-6.10); Red Cell Dist. Width 14.7 % (11.5-14.5)
[2023-11-02 04:58] LABS: ALT (SGPT) 42 U/L (0-50); AST (SGOT) 116 U/L (17-59); Albumin 2.4 g/dl (3.5-5.0); Alkaline Phosphatase 167 U/L (38-126); Blood Urea Nitrogen 61 mg/dl (9-20); Calcium 7.7 mg/dl (8.4-10.2); Carbon Dioxide 32 mmol/L (22-30); Chloride 96 mmol/L (98-107); Creatine Phosphokinase 83 U/L (55-170); Estimated Creatinine Clearance 60 ml/min; Glucose 108 mg/dl (70-99); Phosphorus 4.5 mg/dl (2.5-4.5); Potassium 3.8 mmol/L (3.5-5.1); Sodium 132 mmol/L (135-145); Total Bilirubin 0.8 mg/dl (0.2-1.3); Total Protein 4.9 g/dl (6.3-8.2); eGFR 38.11
--- NOTE | 2023-11-02 06:37 | PTCARENOTE ---
Pt Aox3, VSS, NSR on monitor, C/o pain 8/10 right foot. PRN medications administered. Right leg and foot are red, warm to touch. Sudhakar bandage CDI. Continuing abx. Pt turns self in bed.
--- NOTE | 2023-11-02 07:16 | W.PN.ID1 ---
Date of Service
Date of Service: November 02, 2023
Today's Communication
Continue Penicillin G, wound care
Assessment / Plan
48 year old male with history relevant for chronic pain on a relatively high dose of oxycodone, obesity chronically presenting for severe pain, redness, swelling, tenderness in the RLE progressing over about a week prior to presentation to health
care, initial in shock. Physical exam without crepitus or pain out of proportion to physical findings but with notable swelling and bullae initially. Taken to the OR and found to have necrotizing SSTI which was debrided, thankfully without
evidence of fasciitis
Septic Shock - improving
Necrotizing SSTI, s/p excisional debridement on 10/30/2023
MSOF
Rhabdomyolysis - now resolved
GIORGIO
Prediabetes
Class III Obesity
- tissue culture of R foot and wound culture of R foot fluid: Group A Strep pyogenes
- Anaerobic culture pending
- blood cultures x2 - no growth to date
- CT leg without soft tissue gas
- appreciate surgical team
- Vancomycin and Meropenem discontinued. Can stop clindamycin today (for toxin suppression). Given culture results, Continue Penicillin G 5,000,000 units Q24h. Will monitor kidney function
- Weaned off pressors
- follow clinically
- outpatient would recommend follow up with endocrinology or [facility] - obesity management will likely improve chronic back pain as well as decrease risk of future infections.
Chief Complaint
-: Other (necrotizing SSTI, shock)
Subjective / Review of Systems
No acute events overnight. Pt requests paperwork for work absence
Review of Systems: Other (Lower extremity pain, poor appetite)
Vital Signs / Physical Exam
Vital Signs
Vital Signs
Temp Pulse Resp BP Pulse Ox
98.1 F 91 18 84/54 94
11/02/23 04:57 11/02/23 06:00 11/02/23 06:00 11/02/23 06:00 11/02/23 06:00
Physical Exam
Constitutional: No Acute Distress and Other (appears uncomfortable)
Cardiovascular: Regular Rate and S1/S2; Negative Murmur or Rub
Pulmonary: Clear and Non Labored; Negative Wheezes, Rales or Rhonchi
Gastrointestinal: Soft, Non Tender, Non Distended, Normal Bowel Sounds and No Guarding
Genito-Urinary: Negative Hernandez
Extremities: Other (RLE swelling from foot to mid thigh, diffusely tender. Erythema of R Leg. No bullae noted. Serous fluid noted on dressing)
Skin: Warm and Dry
Neurological: Awake and Alert
Objective Data
Lab Data
Lab Results
11/02/23 04:22
11/02/23 04:22
ESR 71 mm/hour (0-20) H 10/29/23 23:34
PT 15.3 Sec (11.4-14.6) H 10/29/23 22:06
INR 1.23 10/29/23 22:06
APTT 39.1 Sec (23.4-35.0) H 10/29/23 22:06
Estimated Creat Clear 60 ml/min 11/02/23 04:22
Lactic Acid 1.7 mmol/L (0.7-2.0) 10/30/23 14:00
Total Bilirubin 0.8 mg/dl (0.2-1.3) 11/02/23 04:22
AST 116 U/L (17-59) H 11/02/23 04:22
ALT 42 U/L (0-50) 11/02/23 04:22
Alkaline Phosphatase 167 U/L (38-126) H 11/02/23 04:22
C-Reactive Protein Cancelled 10/29/23 21:54
Most recent labs reviewed.
Micro Results:
10/29/23 21:04 Blood Culture - Preliminary
Blood/Venous No Growth in 72 hours- Final report to follow
10/29/23 20:50 Blood Culture - Preliminary
Blood/Venous No Growth in 72 hours- Final report to follow
10/30/23 18:26 Tissue Culture - Preliminary
Foot - Right Streptococcus pyogenes
Gram Stain - Preliminary
10/30/23 18:12 Wound Culture - Preliminary
Foot - Right Streptococcus pyogenes
Gram Stain - Preliminary
10/30/23 18:12 Anaerobic Culture - Preliminary
Foot - Right Culture pending. Anaerobic cultures are examined after 3
days incubation. Additional information to follow.
10/30/23 04:06 Urine Culture - Final
Urine NO GROWTH
10/29/23 23:34 MRSA Screen - Final
Nose No Methicillin Resistant Staphylococcus aureus isolated.
--- NOTE | 2023-11-02 07:53 | W.PN.HOSP.TC ---
Today's Communication/Plan
-
Bladder scan
Midodrine
Avoid hypotension
Monitor renal function closely
Assessment / Plan
Assessment / Plan
Gen-AAOx3, mild chills, acutely ill, morbid obesity
HEENT-NC, AT, anicteric, clear oral mm
Neck-supple
CV-reg, no M, +S1/S2
Lungs-clear B/L
Abd-soft, NT, ND
Ext-diffuse right lower extremity edema, Sudhakar wrap to right foot
Musculoskeletal-no cyanosis, clubbing
Skin-warm and dry
Neuro-grossly non-focal
Psych-calm, cooperative
Septic shock -due to right foot necrotizing fasciitis. Underwent excisional debridement October 29. Wound culture shows strep pyogenes. Continue antibiotics per ID. Blood cultures negative so far. Off vasopressors. WBCs trending down. Afebrile.
GIORGIO -due to septic shock, ongoing hypotension. Vasopressors discontinued 10/31 morning. Hypotensive yesterday afternoon. Creatinine 2.1 today. Component of urinary retention contributing to renal failure, bladder scan yesterday was over 1 L.
Check bladder scan this morning, discussed with nursing. Start midodrine 10 mg 3 times daily.
Hyponatremia -stable at 132.
Hypokalemia -resolved.
Normocytic anemia -unknown acuity or etiology. No evidence of hemolysis. Monitor for now. Baseline unknown.
Acute nontraumatic rhabdomyolysis -CPK improved. Suspect due to necrotizing fasciitis.
Troponin elevation -suspect acute nonischemic myocardial injury due to critical illness, septic shock.
Impaired fasting glucose -hemoglobin A1c 6.3%. Weight loss is the gan. Glucose 108 this morning, off Lantus. Change aspart scale to low resistance.
Essential hypertension -hold antihypertensives for shock.
Chronic low back pain/chronic opiate dependence -he is on MS Contin 30 mg every 12 hours [id number] and oxycodone with acetaminophen every 6 hours as needed at home for chronic back pain. Continue morphine today but may need to discontinue if
renal function worsens. Continue IV Dilaudid as needed. Patient currently complaining of significant right lower extremity pain due to infection. Hold off on NSAIDs given renal insufficiency.
Hx nephrolithiasis -history of stenting, nephrostomy in the past.
Diverticulosis -noted on abdominal CT.
Possible mild chronic T8/T9 partial vertebral compression fractures -noted on CT.
ARABELLA -not on CPAP due to noncompliance, insurance revoked his machine at home. Nursing notes desaturation when sleeping. CPAP started last evening but around 2 AM patient took himself off of it due to intolerance.
Morbid obesity due to excess calories
Full code
Anticipated Discharge: > 48 hours
Subjective/Interval History
-
Date of Service: November 02, 2023
Patient seen and examined. Complaining of not feeling well but cannot explain further.
Objective Data
-
Labs:
Laboratory Results
11/02/23
04:22
WBC 21.0 H
Hgb 8.8 L
Hct 25.7 L
Plt Count 273
Sodium 132 L
Potassium 3.8
Chloride 96 L
Carbon Dioxide 32 H
BUN 61 H
Creatinine 2.1 H
Glucose 108 H
Calcium 7.7 L
Total Bilirubin 0.8
AST 116 H
ALT 42
Alkaline Phosphatase 167 H
Vital Signs:
Vital Signs
Temp Pulse Resp BP Pulse Ox
98.1 F 91 18 84/54 94
11/02/23 04:57 11/02/23 06:00 11/02/23 06:00 11/02/23 06:00 11/02/23 06:00
I&O
11/01/23 11/02/23 11/03/23
06:59 06:59 06:59
Intake Total 1400.0 / 1415.0 1035 / 1035
Output Total 1215 / 1215 1100 / 1100
Balance 185.0 / 200 -65 / -65
Review of Systems
-
History Source: Patient
All other systems: Reviewed and negative
[2023-11-02] MEDS: ProAmatine 10 MG PO ×3 (08:20→18:09)
[2023-11-02] MEDS: NEURONTIN 300 MG PO ×2 (08:20→19:43)
[2023-11-02] MEDS: MS CONTIN (EXTENDED RELEASE) 30 MG PO ×2 (08:24→19:45)
--- NOTE | 2023-11-02 08:32 | W.PN.UPDATE ---
Update Note
Progress Note Update
I saw and evaluated the patient. I reviewed the resident�s seperatly recorded note and agree with findings and plan as documented in the resident�s note with the following exceptions/corrections
S: increased pain in the RLE, now with increased frequency of pain medications
O:
VSS:
Exam:
Gen: Awake, nontoxic
Extr: right lower extremity increased swelling, new bullae on the anterior panda with surrounding pinpoint subcuticular bleeding, wound bed lateral foot slough, some visible pink subcutaneous tissue, visible extensor tendon of the 5th digit, no
necrotic tissue
Labs: reviewed, most notably
wbc now 21, hgb 8.8, plt 273, L shift now improving 85%, eos are returning in normal range, cr now 2.1 for crcl 60 and egfr 38
48 year old male with history relevant for chronic pain on a relatively high dose of oxycodone, obesity chronically presenting for severe pain, redness, swelling, tenderness in the RLE progressing over about a week prior to presentation to health
care, initial in shock. Physical exam without crepitus or pain out of proportion to physical findings but with notable swelling and bullae initially. Taken to the OR and found to have necrotizing SSTI which was debrided, thankfully without
evidence of fasciitis, culture with GAS as expected.
Septic Shock - improving
Necrotizing SSTI, s/p excisional debridement on 10/30/2023
GIORGIO - further increased
Prediabetes
Class III Obesity
- tissue culture of R foot and wound culture of R foot fluid: Group A Strep
- Anaerobic cultures pending anticipated later today
- blood cultures x2 are in progress - no growth to date
- appreciate surgical team - reviewed the physical exam findings together and patient will return to OR for second look in the area of the new bullae
- suggest elevation and compression of the leg as tolerated
- initially stopped clindamycin this am, given progression I have restarted it
- continue penicillin g 5 million units IV q4 hours - dosing discussed with clinical pharm Carmencita Yang and will continue at this dose
- follow clinically
AW
[2023-11-02] MEDS: NOVOLOG FLEXPEN-MODERATE RESISTANCE SC (08:40)
[2023-11-02 08:51] LABS: Glucose - Point of Care 109 mg/dl (70-99)
--- NOTE | 2023-11-02 09:19 | PTCARENOTE ---
Pt transferred from ICU to IMU via bed. Pt AAOx3, c/o severe pain in R foot at surgical site. R foot repositioned and elevated on pillow and air cushion, dressing CDI, +3 edema noted and skin red and warm to touch. PRN Dilaudid administered as
ordered, pt currently sleeping in bed. Will continue to monitor through shift.
[2023-11-02] MEDS: TYLENOL 650 MG PO ×3 (10:46→19:43)
[2023-11-02 12:58] LABS: Glucose - Point of Care 136 mg/dl (70-99)
--- NOTE | 2023-11-02 13:47 | PTCARENOTE ---
Pt verbalizing that his R foot pain is slightly improving, agreeable to an ice pack placed on top of foot. Plan is to medicate when prns are due next and do dressing change after that.
--- NOTE | 2023-11-02 14:34 | W.PN.PUL3 ---
Today's Communication / Plan
-
Continue antibiotics per ID
Presently on room air
BiPAP as needed, continue nightly
Recommend outpatient sleep disorder workup. Information left in chart
We will sign off. Please call with questions
Assessment
-
Assessment: 48-year-old male non-smoker with past medical history of prediabetes, cervicalgia, hypertension and recurrent nephrolithiasis presents with swollen right foot that is painful. He states that he had a tree cut down in his backyard on
this past , and walked back to see the progress and believes something bit him. He has had worsening right foot swelling and pain since then. In the ER he was febrile to 103 �F, tachycardic to 107, breathing at 20-30 breaths/min, BP 72/38,
and saturating 91% on room air. Labs showed leukocytosis to 19.8, Hb 9.2, ESR 71, ABG with pH 7.31, pCO2 33, serum sodium 126, creatinine 4.4, BUN 80, serum bicarbonate 15, lactate 3.2, CK10 24, CRP >270, albumin 2.5, with negative COVID-19 antigen
and negative Lyme screen. Blood cultures were collected, with CXR showing low lung volumes without pneumonia. Right foot/tib�fib XR showed no acute osseous abnormality or foreign body. CT abdomen/pelvis showed no obstructive uropathy,
hepatosplenomegaly, descending colon/sigmoid diverticulosis and suspected old T8-[address] fractures[address] right lower extremity showed no acute osseous abnormality with diffuse soft tissue swelling with skin thickening along
the dorsum of the foot and lateral ankle with no soft tissue gas, foreign body or focal fluid collection. RLE duplex ultrasound was negative for DVT. He was given 3 L of NS 0.9%, Ofirmev, tetanus shot, Zosyn/IV vancomycin and started on Levophed
due to persistent hypotension with SBP in the 60s�70s. Patient transferred to the ICU for further care, and critical care services consulted for additional management/recommendations.
Chronic conditions [employer]: Cervicalgia, prediabetes, recurrent nephrolithiasis, hypertension
Impression:
#Septic shock due to RLE cellulitis/necrotic foot wound due to Strep pyogenes; no evidence of necrotizing fasciitis from OR on 10/30/2023 - shock state resolved as of 11/01/2023
#Necrotizing soft tissue infection of right foot s/p excisional debridement (POD #2)
#GIORGIO
#Acute respiratory failure with hypoxia likely due to sepsis with acute organ dysfunction
#Anemia
#Metabolic acidosis with increased anion gap - resolved
#Hyponatremia likely due to prerenal GIORGIO
#Rhabdomyolysis
#Elevated troponin (peaked at 0.051 on 10/30/2023)
#Lactic acidosis - normalized
#Hepatosplenomegaly
#Obesity (BMI: 42.7)
#At high risk of obstructive sleep apnea
#Prediabetes mellitus (HbA1c: 6.3) with hyperglycemia
Plan/recommendations
At this time, patient appears to be comfortable from respiratory standpoint. On room air, denies any respiratory symptoms
Leukocytosis noted
ABG 10/31/2023 with adequate ventilation
Chest x-ray 10/30/2023 with decreased lung volumes, mild interstitial process
Moving forward
Continue with antibiotics per ID, remains on penicillin
Hemodynamics have improved, off pressors
Chest exam is clear
Nebulized therapy as needed
Patient receiving morphine for pain control
Follow mental status. BiPAP at bedside
Incentive spirometer encouraged
Outpatient follow-up for sleep disordered breathing discussion
DVT ppx: HSQ
We will sign off. Please call with questions
Data:
CT right lower extremity 10/30/2023:
No acute osseous abnormality.
Diffuse soft tissue swelling throughout the lower extremity with skin thickening along the dorsum of the foot and lateral ankle likely representing cellulitis. No soft tissue gas, radiopaque foreign body, or focal fluid collection.
Subjective Data
-
Date of Service:
Date of Service: November 02, 2023
Subjective:
Patient evaluated after transfer out of ICU. Denies any shortness of breath, cough, chest pain. Mild abdominal discomfort after eating a bit. Right leg in bandage. Patient on room air. Family at bedside
Objective Data
Data Reviewed
Vital Signs / I&O / Oxygen:
Vital Signs
Temp Pulse Resp BP Pulse Ox
98.5 F 88 19 99/46 94
11/02/23 11:20 11/02/23 13:49 11/02/23 10:00 11/02/23 13:49 11/02/23 10:00
Intake and Output
11/01/23 11/02/23 11/03/23
06:59 06:59 06:59
Intake Total 1400.0 / 1415.0 1035 / 1035 220 / 220
Output Total 1215 / 1215 1100 / 1100 1325 / 1325
Balance 185.0 / 200 -65 / -65 -1105 / -1105
SaO2 94
Nasal Cannula flow liters per 2
minute
Physical Exam
General: Comfortable and Other (Large neck)
HEENT: Normocephalic and Anicteric
Cardiovascular: S1-S2, Regular Rhythm, Murmur (n), Rub (n) and Peripheral Edema (Right lower extremity bandage in place, trace edema)
Respiratory: Wheeze (n), Crackles (n), Rhonchi (n), Non-Labored Respirations and Other (Decreased at base)
GI: Soft, Non Distended (Morbidly obese) and Non Tender
Neurology: Awake, Alert and No Motor Deficits (Moves all extremities)
Skin: Cyanosis (n) and Jaundice (n)
Labs/Micro/Reports
Lab Data
11/02/23 04:22
11/02/23 04:22
Microbiology
10/30/23 18:26 Foot - Right Tissue Culture - Final
Streptococcus pyogenes
10/30/23 18:26 Foot - Right Gram Stain - Final
10/30/23 18:12 Foot - Right Wound Culture - Preliminary
Streptococcus pyogenes
10/30/23 18:12 Foot - Right Gram Stain - Preliminary
10/29/23 21:04 Blood/Venous Blood Culture - Preliminary
No Growth in 72 hours- Final report to follow
10/29/23 20:50 Blood/Venous Blood Culture - Preliminary
No Growth in 72 hours- Final report to follow
10/30/23 18:12 Foot - Right Anaerobic Culture - Preliminary
Culture pending. Anaerobic cultures are examined after 3
days incubation. Additional information to follow.
10/30/23 04:06 Urine Urine Culture - Final
NO GROWTH
10/29/23 23:34 Nose MRSA Screen - Final
No Methicillin Resistant Staphylococcus aureus isolated.
--- NOTE | 2023-11-02 15:53 | W.SUR.PREOP ---
Addendum entered and electronically signed by Markel Bowles MD 11/02/23 16:31:
The patient was examined at around 1 PM was made n.p.o. at that time, he states that he last ate solid food around 11 AM and may have had some liquid up until noon. He is aware that under 6 hours, he is at a slightly higher risk for aspiration with
anesthesia but given the emergent nature of the infection is willing to take that risk.
Case discussed with anesthesia, they are willing to move forward with the procedure as well.
Original Note:
Pre-Operative Surgical Note
-
I have examined this patient prior to the performance of the scheduled procedure.
The patient's condition is unchanged from the time of the current History and
Physical and the patient is able to undergo the scheduled procedure.
--- NOTE | 2023-11-02 15:53 | W.PN.GS2 ---
Today's Communication / Plan
-
Plan for OR today.
Assessment / Plan
-
Patient is a 48 yo M p/w a necrotizing soft tissue infection of RLE POD#2 s/p incision and debridement of RLE/foot. Clinically improving though still has some residual erythema and given that his cultures have grown out group A strep reasonable to
bring back to the operating room for second look and additional debridement.
Risks/Benefits/Alternatives, expected postoperative course and possible complications (bleeding, infection, injury to surrounding structures, acute/chronic pain) discussed at length. Patient wishes to proceed with surgery. All questions answered.
Consent obtained.
--N.p.o. for now, okay for regular diet postop.
--Abx: ID following, appreciate rcs
--Local wound care: WTD gauze BID with ABD, Kerlix followed by a gentle jon wrap to secure gauze. Elevate the leg as able
--GS will follow.
I spent roughly 30 minutes in total for the care of this patient today including direct patient care and counseling, reviewing labs, imaging, coordination of care, as well as documentation.
Time Spent
Total Time Spent with Patient (in minutes): 20
Subjective Data
-
Date of Service: November 02, 2023
Interval Events:
No acute events overnight. Pressors off, leukocytosis improving. Pain however seems to be the slightly worse. Denies Nausea/Vomiting, -bowel function. Tolerating diet.
Objective Data
-
Intake and Output
11/01/23 11/02/23 11/03/23
06:59 06:59 06:59
Intake Total 1400.0 / 1415.0 1035 / 1035 220 / 220
Output Total 1215 / 1215 1100 / 1100 2024
Balance 185.0 / 200 -65 / -65 -1805 / -1805
Intake:
Oral fluids 480 / 480 990 / 990
IV fluids (Total) 470.0 / 485.0 45 / 45
Levophed 270.0 / 285.0 45 / 45
Lr 1,000 ml @ 100 mls/hr IV . 200 / 200
Q10H [facility] Rx#:[id number]
IV piggybacks 450 / 450 220 / 220
Output:
Urine, Hernandez 640 / 640
Urine, Voided 575 / 575 2024
Straight cath output 1100 / 1100
Vital Signs
Temp Pulse Resp BP Pulse Ox
98.5 F 87 11 119/64 93
11/02/23 11:20 11/02/23 14:00 11/02/23 14:00 11/02/23 14:00 11/02/23 12:00
Lab Results
11/02/23 04:22
11/02/23 04:22
Calcium 7.7 mg/dl (8.4-10.2) L 11/02/23 04:22
Phosphorus 4.5 mg/dl (2.5-4.5) 11/02/23 04:22
Magnesium 3.0 mg/dl (1.6-2.3) H 11/02/23 04:22
Total Bilirubin 0.8 mg/dl (0.2-1.3) 11/02/23 04:22
AST 116 U/L (17-59) H 11/02/23 04:22
ALT 42 U/L (0-50) 11/02/23 04:22
Alkaline Phosphatase 167 U/L (38-126) H 11/02/23 04:22
Total Protein 4.9 g/dl (6.3-8.2) L 11/02/23 04:22
Albumin 2.4 g/dl (3.5-5.0) L 11/02/23 04:22
Physical Exam
-
GENERAL/NEURO: Awake, Alert, no distress
CHEST: Unlabored breathing on RA
ABDOMEN: Soft, Non-Tender, Non-Distended
EXTREMITIES: Stable erythema to just below the knee of the right lower extremity. Still fairly swollen, warm to touch. There is a bullae at the anterior superior margin of the erythema.
--- NOTE | 2023-11-02 17:17 | W.IMMPOSTOP ---
Addendum entered and electronically signed by Markel Bowles MD 11/02/23 17:35:
The postop diagnosis should read 'Right lower extremity cellulitis'
And the anesthesia type was 'local' not 'general'.
Original Note:
Surgical Immed Post Op Note
-
Primary Surgeon: Markel Bowles MD
Assisting Surgeon: None
Pre-op Diagnosis: Necrotizing soft tissue infection of the right lower extremity
Post-op Diagnosis: Same
Procedure Performed: Incision and drainage of the right lower extremity
Anesthesia Type: General
Specimen / Cultures: None
Estimated Blood Loss: 1 cc
Complications: None
Operative Findings: Right lower extremity cellulitis. A counterincision was made about 2 cm below the superior/proximal extent of erythema on the anterior surface of the right lower extremity. This was carried down anteriorly to the fascia of the
lateral compartment which was evaluated and noted to be completely healthy with no sign of infection. There was a significant amount of edema however in the subcutaneous skin. This along with his previous foot wound was thoroughly irrigated and
hemostasis was achieved. The wound was then repacked with Betadine soaked gauze followed by ABD pads Kerlix wrap and Sudhakar wraps.
POST OP PLAN:
Imaging: None
Labs: Routine AM
Diet: Advance to Regular as tolerated
Analgesia: Tylenol 650mg q6 [place], Toradol 15 mg every 6 as needed if creatinine okay, Dilaudid 1mg q2h PRN
Neuro/vascular checks: q4h
AC/AP: Hold Therapeutic AC, Ok for DVT PPx
Activity: Ad Ni
Wound/Incisions/Drains: RLE wounds packed with Betadine soaked gauze followed by ABD pads Kerlix and Sudhakar wraps.
Abx: Continue antibiotics per ID
Dispo: IMU
--- NOTE | 2023-11-02 17:25 | OR.RPT ---
Operative Report
Operative Report
Patient Name: Colten Rojas
: 1975
Date of Operation: 11/02/2023
Preoperative Diagnosis: Necrotizing soft tissue infection of the right lower extremity
Postoperative Diagnosis: Right lower extremity cellulitis
Procedure(s):
Incision and drainage of the right lower extremity
Surgeon(s):
Dr. Bowles
Material Planning Analyst(s):
None
Anesthesia: Local
Estimated Blood Loss: 1 cc
Urine Output: None
Drains/Lines/Implants: None
Specimens:
None
Indication for surgery:
This is a 48-year-old male morbidly obese (BMI 42), prediabetic who was admitted to our hospital/ICU for septic shock secondary to a right lower extremity anterior foot wound with corresponding cellulitis and ascending infection with skin necrosis,
bullae concerning for a necrotizing soft tissue infection that underwent initial debridement on 10/30/2023. He has clinically been improving but he has persistent erythema to just below the right knee with persistent swelling and pain. Initial
cultures concerning for group A strep. After discussion of risk benefits alternatives and conjunction with infectious disease we felt it would be best to go to the operating room for additional debridement to ensure there is was no persistent
necrotizing soft tissue infection. As the patient had eaten at roughly 4:00, anesthesia did not feel comfortable proceeding without endotracheal intubation. Again after discussing with the patient we elected to attempt proceeding with this
procedure under straight local.
Operative Findings: Right lower extremity cellulitis. A counterincision was made about 2 cm below the superior/proximal extent of erythema on the anterior surface of the right lower extremity. This was carried down anteriorly to the fascia of the
lateral compartment which was evaluated and noted to be completely healthy with no sign of infection. There was a significant amount of edema however in the subcutaneous skin. This along with his previous foot wound was thoroughly irrigated and
hemostasis was achieved. The wound was then repacked with Betadine soaked gauze followed by ABD pads Kerlix wrap and Sudhakar wraps. The patient tolerated the procedure well under local anesthesia alone.
Details of the operation:
The patient was brought to the operating room and placed in the supine position. The right lower extremity was then prepped and draped in the usual fashion. A team timeout was performed, confirming the patient, laterality of the procedure and that
appropriate preoperative antibiotics had been given. A vertical 4 cm longitudinal incision was made roughly 2 cm from the superior/proximal edge of the erythema on the anterior lateral aspect of the panda and carried down through the subcutaneous
tissues until the fascia was reached. The fascia looked white, healthy and there was no sign of necrotizing fasciitis. The area was gently probed in all directions and the surrounding tissue also seems similarly healthy. There was a significant
amount of edema consistent with cellulitis. We then turned our attention to the previous wound on the foot which looked healthy. There was no additional necrotic tissue. Both wounds were irrigated with saline and hemostasis was achieved. The
wounds were then packed with Betadine soaked Kerlix followed by ABD pads and held in place with a Kerlix wrap followed by 2 Sudhakar wraps. All counts were correct at the end of procedure. The patient was then transferred back to the IMU for further
monitoring and care.
I was the attending physician and performed the procedure with no assistance. I was present for all portions of the case
Markel Bowles MD
[2023-11-02] MEDS: DILAUDID 0.5 MG IV (17:26)
[2023-11-02] MEDS: DILAUDID 0.25 MG IV (17:36)
[2023-11-02 18:01] LABS: Glucose - Point of Care 87 mg/dl (70-99)
[2023-11-02] MEDS: SENOKOT-S 1 TABLET PO (18:24)
[2023-11-02] MEDS: MIRALAX 17 GRAMS PO (18:24)
[2023-11-02 18:29] LABS: Glucose - Point of Care 115 mg/dl (70-99)
[2023-11-02] MEDS: FLOMAX 0.8 MG PO (19:43)
[2023-11-03] VITALS (10 sets, daily range): BP systolic 107–152; BP diastolic 48–73; PULSE 93; O2SAT 95; BMI 42.8
[2023-11-03] MEDS: DILAUDID 1 MG IV ×9 (00:38→23:58)
[2023-11-03] MEDS: PENICILLIN 110 UNITS IV ×6 (03:38→23:55)
--- NOTE | 2023-11-03 04:28 | PTCARENOTE ---
Patient is Ax3 with +2 edema on the right lower left due to surgery. Right lower leg is red and warm and patient stated 9/10 pain on multiple occasions throughout the night, PRN and scheduled pain medication given. continuing to monitor the patient.
[2023-11-03] MEDS: ZOFRAN 4 MG IV (05:58)
[2023-11-03] MEDS: TYLENOL 650 MG PO ×4 (06:07→23:05)
[2023-11-03] MEDS: ROXICODONE 5 MG PO ×3 (08:00→21:43)
[2023-11-03] MEDS: MS CONTIN (EXTENDED RELEASE) 30 MG PO ×2 (08:01→19:21)
[2023-11-03] MEDS: NEURONTIN 300 MG PO ×2 (08:01→19:19)
[2023-11-03] MEDS: HEPARIN 5000 UNITS SC ×3 (08:02→23:55)
[2023-11-03] MEDS: ProAmatine 10 MG PO ×3 (08:02→17:16)
[2023-11-03] MEDS: CLEOCIN 50 IV (08:02)
--- NOTE | 2023-11-03 08:16 | W.PN.ID1 ---
Addendum entered and electronically signed by Oanh Murphy MD 11/03/23 13:51:
I saw and evaluated the patient. I reviewed the resident�s note and agree with findings and plan as documented in the resident�s note with the following additions/corrections:
S: Tmax 100.0 overnight post operatively
O:
VSS:
Exam: I agree with the residents exam in addition:
Gen: [id number]
Extr: increased bruising around the surgical site, pallor in the wound, two exposed tendons, no necrotic tissue; packing not removed from proximal leg surgical site - serousanguinous drainage
DLOA: PIVs
Labs:
Reviewed available labs, in addition:
declining WBC to 17, hgb 9.1, plt 336; no diff today
K 3.8, Cr 1.7, ast down to 88, alk pohs 149
no additional cultures from the OR and not expected given OR findings
A&P
48 year old male with history relevant for chronic pain on a relatively high dose of oxycodone, obesity presented 10/28 for severe pain, redness, swelling, tenderness in the RLE progressing over about a week prior to presentation to health care,
initially in shock. Physical exam without crepitus or pain out of proportion to physical findings but with notable swelling and bullae initially. Taken to the OR and found to have necrotizing SSTI due to GAS which was debrided, thankfully without
evidence of fasciitis. Given development of new bullae and subcuticular bleeding in the setting of stopping compression of the distal right leg, patient returned to the OR 11/01 and again without evidence of fasciitis.
Necrotizing SSTI due to GAS, s/p excisional debridement on 10/30/2023, reexploration 11/02
GIORGIO - improving
Prediabetes
Class III Obesity
- appreciate surgery input, pleased to read no evidence of fasciitis on 11/01 exploration
- 10/29 tissue culture of R foot and wound culture of R foot fluid: Group A Strep
- Anaerobic culture prelim neg as expected
- blood cultures x2 are in progress - no growth to date
- suggest elevation and compression of the leg as tolerated
- stopped clindamycin
- continue penicillin g 5 million units IV q4 hours
- follow clinically
AW
Original Note:
Date of Service
Date of Service: November 03, 2023
Today's Communication
Continue Clindamycin and Penicillin G.
Assessment / Plan
48 year old male with history relevant for chronic pain on a relatively high dose of oxycodone, obesity chronically presenting for severe pain, redness, swelling, tenderness in the RLE progressing over about a week prior to presentation to health
care, initial in shock. Physical exam without crepitus or pain out of proportion to physical findings but with notable swelling and bullae initially. Taken to the OR and found to have necrotizing SSTI which was debrided, thankfully without
evidence of fasciitis
Septic Shock - improving
Necrotizing SSTI, s/p excisional debridement on 10/30/2023
MSOF
Rhabdomyolysis - now resolved
GIORGIO
Prediabetes
Class III Obesity
- tissue culture of R foot and wound culture of R foot fluid: Group A Strep pyogenes
- Anaerobic culture pending
- blood cultures x2 - no growth to date
- CT leg without soft tissue gas
- appreciate surgical team. Based on physical exam findings, patient was taken to OR for second look/I&D of new bullae seen yesterday. In OR, significant subcutaneous edema but healthy tissue underneath.
- Vancomycin and Meropenem discontinued. Clindamycin was continued given progression noted on physical exam. Continue Penicillin G 5,000,000 units Q24h, dosing discussed/agreed with Nicolette Yang.
- suggest elevation and compression of the leg as tolerated
- follow clinically
Chief Complaint
-: Other (necrotizing SSTI, shock)
Subjective / Review of Systems
Review of Systems: No Fever, No Chills, No Chest Pain, No Abdominal Pain and Other (RLE pain, constipation)
Vital Signs / Physical Exam
Vital Signs
Vital Signs
Temp Pulse Resp BP Pulse Ox
98.7 F 102 14 137/61 96
11/03/23 05:57 11/03/23 06:00 11/03/23 06:00 11/03/23 06:00 11/03/23 06:00
Physical Exam
Constitutional: No Acute Distress and Comfortable
Cardiovascular: Regular Rate and S1/S2; Negative Murmur
Pulmonary: Clear and Non Labored; Negative Wheezes, Rales or Rhonchi
Gastrointestinal: Non Tender, Non Distended, Normal Bowel Sounds, No Rebound and No Guarding
Extremities: Other (RLE diffuse edema, tender, Sudhakar wrap in place)
Wound: Other (R foot/leg wound with dressings intact and Sudhakar wrap in place. )
Neurological: Awake, Alert and Other (appropriately answers questions)
Psychological: Calm
Objective Data
Lab Data
ESR 71 mm/hour (0-20) H 10/29/23 23:34
PT 15.3 Sec (11.4-14.6) H 10/29/23 22:06
INR 1.23 10/29/23 22:06
APTT 39.1 Sec (23.4-35.0) H 10/29/23 22:06
Estimated Creat Clear 60 ml/min 11/02/23 04:22
Lactic Acid 1.7 mmol/L (0.7-2.0) 10/30/23 14:00
Total Bilirubin 0.8 mg/dl (0.2-1.3) 11/02/23 04:22
AST 116 U/L (17-59) H 11/02/23 04:22
ALT 42 U/L (0-50) 11/02/23 04:22
Alkaline Phosphatase 167 U/L (38-126) H 11/02/23 04:22
C-Reactive Protein Cancelled 10/29/23 21:54
Most recent labs reviewed.
Micro Results:
10/29/23 21:04 Blood Culture - Preliminary
Blood/Venous No Growth in 4 days- Final report to follow
10/29/23 20:50 Blood Culture - Preliminary
Blood/Venous No Growth in 4 days- Final report to follow
10/30/23 18:12 Anaerobic Culture - Preliminary
Foot - Right Culture pending. Anaerobic cultures are examined after 3
days incubation. Additional information to follow.
10/30/23 18:26 Tissue Culture - Final
Foot - Right Streptococcus pyogenes
Gram Stain - Final
10/30/23 18:12 Wound Culture - Preliminary
Foot - Right Streptococcus pyogenes
Gram Stain - Preliminary
10/30/23 04:06 Urine Culture - Final
Urine NO GROWTH
10/29/23 23:34 MRSA Screen - Final
Nose No Methicillin Resistant Staphylococcus aureus isolated.
[2023-11-03] MEDS: SENOKOT-S 1 TABLET PO ×3 (08:17→19:21)
[2023-11-03 08:44] LABS: ALT (SGPT) 41 U/L (0-50); AST (SGOT) 88 U/L (17-59); Albumin 2.5 g/dl (3.5-5.0); Alkaline Phosphatase 149 U/L (38-126); Blood Urea Nitrogen 44 mg/dl (9-20); Calcium 7.7 mg/dl (8.4-10.2); Carbon Dioxide 28 mmol/L (22-30); Chloride 97 mmol/L (98-107); Estimated Creatinine Clearance 74 ml/min; Glucose 103 mg/dl (70-99); Potassium 3.8 mmol/L (3.5-5.1); Sodium 132 mmol/L (135-145); Total Bilirubin 0.9 mg/dl (0.2-1.3); Total Protein 5.2 g/dl (6.3-8.2); eGFR 49.11
--- NOTE | 2023-11-03 08:46 | W.PN.HOSP.TC ---
Addendum entered and electronically signed by Jl Forbes, 11/03/23 15:26:
Necrotizing Fascitis is still the diagnosis
Addendum entered and electronically signed by Jl Forbes, 11/03/23 10:28:
Updated patient's on the phone. All questions answered.
Addendum entered and electronically signed by Jl Forbes, 11/03/23 09:55:
I left a voicemail for patient's to call me back.
Consult PT.
Bowel regimen.
Original Note:
Today's Communication/Plan
-
Continue current care
Assessment / Plan
Assessment / Plan
Gen-AAOx3, mild chills, acutely ill, morbid obesity
HEENT-NC, AT, anicteric, clear oral mm
Neck-supple
CV-reg, no M, +S1/S2
Lungs-clear B/L
Abd-soft, NT, ND
Ext-diffuse right lower extremity edema, Sudhakar wrap to right foot
Musculoskeletal-no cyanosis, clubbing
Skin-warm and dry
Neuro-grossly non-focal
Psych-calm, cooperative
Septic shock -due to right foot necrotizing fasciitis. Underwent excisional debridement October 29, second incision and drainage performed November 01. Wound culture shows strep pyogenes. Continue antibiotics per ID. Blood cultures negative so far.
Off IV vasopressors. Blood pressure improved on midodrine 10 mg 3 times daily. CBC pending for today. Afebrile.
GIORGIO -due to septic shock, ongoing hypotension. Vasopressors discontinued 8/ morning. Creatinine coming down, 1.7, renal function improving with improvement in blood pressure. Urinary retention improved.
Hyponatremia -stable at 132.
Hypokalemia -resolved.
Normocytic anemia -unknown acuity or etiology. No evidence of hemolysis. Monitor for now. Baseline unknown.
Acute nontraumatic rhabdomyolysis -CPK improved. Suspect due to necrotizing fasciitis.
Troponin elevation -suspect acute nonischemic myocardial injury due to critical illness, septic shock.
Impaired fasting glucose -hemoglobin A1c 6.3%. Weight loss is the gan. Glucose 108 this morning, off Lantus. Change aspart scale to low resistance.
Essential hypertension -hold antihypertensives for shock.
Chronic low back pain/chronic opiate dependence -he is on MS Contin 30 mg every 12 hours [id number] and oxycodone with acetaminophen every 6 hours as needed at home for chronic back pain. Continue morphine today but may need to discontinue if
renal function worsens. Continue IV Dilaudid as needed. Patient currently complaining of significant right lower extremity pain due to infection. Hold off on NSAIDs given renal insufficiency.
Hx nephrolithiasis -history of stenting, nephrostomy in the past.
Diverticulosis -noted on abdominal CT.
Possible mild chronic T8/T9 partial vertebral compression fractures -noted on CT.
ARABELLA -not on CPAP due to noncompliance, insurance revoked his machine at home. Nursing notes desaturation when sleeping. Refused CPAP last night.
Morbid obesity due to excess calories
Full code
Anticipated Discharge: > 48 hours
Subjective/Interval History
-
Date of Service: November 03, 2023
Patient seen and examined. Right leg pain slightly better compared to yesterday.
Objective Data
-
Labs:
Laboratory Results
11/03/23
08:23
WBC Pending
Hgb Pending
Hct Pending
Plt Count Pending
Sodium 132 L
Potassium 3.8
Chloride 97 L
Carbon Dioxide 28
BUN 44 H
Creatinine 1.7 H
Glucose 103 H
Calcium 7.7 L
Total Bilirubin 0.9
AST 88 H
ALT 41
Alkaline Phosphatase 149 H
Vital Signs:
Vital Signs
Temp Pulse Resp BP Pulse Ox
98.7 F 102 14 137/61 96
11/03/23 05:57 11/03/23 06:00 11/03/23 06:00 11/03/23 06:00 11/03/23 06:00
I&O
11/02/23 11/03/23 11/04/23
06:59 06:59 06:59
Intake Total 1035 / 1035 1660 / 1660
Output Total 1100 / 1100 4900 / 4900
Balance -65 / -65 -3240 / -3240
Review of Systems
-
History Source: Patient
All other systems: Reviewed and negative
[2023-11-03 09:03] LABS: Hematocrit 26.5 % (39.0-52.0); Hemoglobin 9.1 g/dL (13.0-18.0); Mean Corp Hgb Conc. 34.3 g/dL (33.0-37.0); Mean Corpuscular Hgb 30.7 pg (27.0-31.0); Mean Corpuscular Volume 89.5 fL (80.0-94.0); Mean Platelet Volume 9.3 fL (7.4-10.4); Platelet Count 336 10^3/uL (130-400); Red Blood Cell Count 2.96 10^6/uL (4.70-6.10); Red Cell Dist. Width 14.7 % (11.5-14.5); White Blood Cell Count 17.9 10^3/uL (4.8-10.8)
--- NOTE | 2023-11-03 09:46 | PTCARENOTE ---
Addendum entered by Briana Kevin RN 11/03/23 12:04:
Now not agreeable to take PRN suppository. Given ordered bowel regimen, see MAR.
Original Note:
assumed care at 0700. AOx3. VSS. NSR on telemetry, HR 80-90s. Very anxious and fixated on constipation and pain. Pain medicine regimen discussed. Provided with PRN Docusate. Required many cues for transfer to [facility], anxious to ambulate. Unable to move
bowels, patient agreeable to suppository.
[2023-11-03 10:22] LABS: Glucose - Point of Care 129 mg/dl (70-99)
--- NOTE | 2023-11-03 10:30 | WOUNDNOTE ---
R CALF (ANTERIOR LATERAL)
--- NOTE | 2023-11-03 10:30 | WOUNDNOTE ---
R FOOT/ANKLE (LATERAL ANTERIOR)
--- NOTE | 2023-11-03 10:30 | WOUNDNOTE ---
R ANKLE/FOOT (LATERAL POSTERIOR)
--- NOTE | 2023-11-03 10:30 | WOUNDNOTE ---
[facility] RN note: Patient seen with Dr. Blanchard and CHIEF SERVICE DISPATCHER Mckenna. R foot wound not as clean as Monday with darker purple discolored skin around wound. R panda incisional wound appear pink. Toes warm. Mckenna confirmed pedal pulse present R foot. +2 RLE
edema. Patient continues with pain. KATELYNN Warren gave patient IV Dilaudid prior to visit. Dr. Blanchard and then Dr. Murphy was in and explained current status of infection with patient and . Dr. Blanchard stated to continue with Vashe moistened
gauze packing, cover with ABD pads, may secure with Kerlix prior to R knee high Sudhakar wraps as tolerated. RLE dressings applied as ordered. RLE elevated on 2 pillows with an air chair cushion on top. L heel off bed with pillow. Patient turns self in
bed. Sacral crease mild red and intact suspect from moisture. Will order Miconazole powder. Instructed patient pressure injury prevention measures. Updated KATELYNN Warren. Surgeon and ID following. Will follow as needed.
[2023-11-03] MEDS: MIRALAX 17 GRAMS PO (11:10)
--- NOTE | 2023-11-03 11:33 | W.PN.GS2 ---
Addendum entered and electronically signed by Cm Blanchard MD 11/03/23 16:34:
Patient seen and examined.
Reports continued pain in RLE. Afebrile.
Gen: NAD
Ext: RLE dorsal lateral wound with woody and edematous soft tissue, viable muscle, surrounding ecchymosis and ischemia of the skin, no worsening erythema, counter incision clean, no troy purulence, edema, palpable pulse
Patient is a 48 yo M p/w NSTI of RIGHT foot
POD#1/4 incision and debridement of RLE/foot
Wound cultures growing group A strep. Complex and evolving infection with area of necrosis and ischemia demarcating. Some signs of clinical improvement with downtrending white count and lack of fevers. Hemodynamically stable and off pressors.
Area left will likely need continued further debridement with complex wound care necessitating potential skin graft. Given the complexity of this patient's care recommend transfer to a tertiary care center. Accepting physician at [facility]. Tentative plan for debridement here at on Monday if transfer has not gone through. Patient has worsening signs of sepsis or evolving infection then may need debridement sooner over the weekend. Continue with current antibiotics.
Continue with current wound care. Patient's family updated. Primary updated.
--Transfer to [facility], accepting physician Dr. Kemp
--Abx: ID following, appreciate recs
--Local wound care: WTD gauze BID with ABD, Kerlix followed by a gentle jon wrap to secure gauze. Elevate the leg as able
--GS will follow.
Original Note:
Today's Communication / Plan
-
Local wound care, abx
Assessment / Plan
-
Patient is a 48 yo M (prediabetic with a1c of 6.3) p/w a necrotizing soft tissue infection of RLE POD#4 &#1 s/p incision and debridement of RLE/foot with counterincision as top point or erythema.
Clinically improving with WBC decreasing and though still has some residual erythema and given that his cultures have grown out group A strep
--Continue ADA diet
--Abx: ID following, appreciate rcs
--Local wound care: WTD gauze BID with MELANIE Kerlix followed by a gentle jon wrap to secure gauze. Elevate the leg as able
--GS will follow.
May need transfer to tertiary care center for enhanced wound care given the proximity to tendon. Discussed with patient and that this will likely be a long recovery and there will be a role for skin grafting in the future once acute infection
resolves.
Subjective Data
-
Date of Service: November 03, 2023
Patient seen and examined at bedside with Dr. Blanchard. present and questions/concerns addressed. Patient reports ongoing pain to right leg but no worse than yesterday. waste management engineer present during exam.
Objective Data
-
Intake and Output
11/02/23 11/03/23 11/04/23
06:59 06:59 06:59
Intake Total 1035 / 1035 1660 / 1660
Output Total 1100 / 1100 4900 / 4900
Balance -65 / -65 -3240 / -3240
Intake:
Oral fluids 990 / 990 1440 / 1440
IV fluids (Total) 45 / 45
Levophed 45 / 45
IV piggybacks 220 / 220
Output:
Urine, Voided 4900 / 4900
Straight cath output 1100 / 1100
Vital Signs
Temp Pulse Resp BP Pulse Ox
98 F 94 12 135/48 95
11/03/23 07:13 11/03/23 08:00 11/03/23 08:00 11/03/23 08:00 11/03/23 08:00
Lab Results
11/03/23 08:23
11/03/23 08:23
Calcium 7.7 mg/dl (8.4-10.2) L 11/03/23 08:23
Phosphorus 4.5 mg/dl (2.5-4.5) 11/02/23 04:22
Magnesium 3.0 mg/dl (1.6-2.3) H 11/02/23 04:22
Total Bilirubin 0.9 mg/dl (0.2-1.3) 11/03/23 08:23
AST 88 U/L (17-59) H 11/03/23 08:23
ALT 41 U/L (0-50) 11/03/23 08:23
Alkaline Phosphatase 149 U/L (38-126) H 11/03/23 08:23
Total Protein 5.2 g/dl (6.3-8.2) L 11/03/23 08:23
Albumin 2.5 g/dl (3.5-5.0) L 11/03/23 08:23
Physical Exam
-
Awake, Alert, no distress
CHEST: Unlabored breathing on RA
ABDOMEN: Soft, Non-Tender, Non-Distended
EXTREMITIES: Stable erythema to just below the knee of the right lower extremity. Still fairly swollen, warm to touch.
2cm counterincision to lateral aspect of leg a few inches below level of knee: packing changed with clean SSF noted
Lateral aspect of right foot with large open wound down to fascia with some tendon visible, slough in base of wound with surrounding ecchymosis: dressing changed
--- NOTE | 2023-11-03 12:51 | PTCARENOTE ---
Consistently asking for more pain medications. Pain regimen reviewed, but patient continues to report severe 8-9/[address] Forbes aware, changed frequency of PRN dilaudid, see MAR.
--- NOTE | 2023-11-03 12:54 | WOUNDNOTE ---
R CALF (ANTERIOR LATERAL)
--- NOTE | 2023-11-03 14:41 | PN.CDI ---
CDI
- -
CDI:
Physician Documentation Request
Admit Date: 10/29/23 23:06
Dear Doctor Leidy,
Please review the following and provide your response in the progress notes.
Clinical Indicators:
Pt admitted with Sepsis due to RLE cellulitis.
10/29 OR report: 'Significant edema was noted, some necrotic looking soft tissue but no evidence of necrotizing fasciitis.'
11/02 ID: ' Necrotizing SSTI due to GAS, s/p excisional debridement on 10/30/2023, reexploration 11/02...appreciate surgery input, pleased to read no evidence of fasciitis on 11/01 exploration.'
11/02 Progress note: ' Septic shock -due to right foot necrotizing fasciitis.'
Due to potential conflicting documentation please clarify the likely suspected type of infection.
Necrotizing Fascitis was ruled out
Necrotizing Fascitis is still a likely, suspected, probable diagnosis
Cellulitis with Necrotizing soft tissue infection
Other
Use of terms such as suspected, likely, concern for, or probable (associated with a specific diagnosis that is being evaluated, monitored, or treated as if it exists) are acceptable and can be coded in the inpatient setting, when documented at the
time of discharge.
Thank you,
Lakia Reed RN,BSN
CDI Specialist
Available via [employer]
Please use your independent medical judgment in providing your response.
--- NOTE | 2023-11-03 16:41 | PTCARENOTE ---
Update given to Esperanza at [facility]. Reports patient is accepted at [facility] pending bed availability. Dr. Forbes and Mckenna CHANDLER aware.
[2023-11-03 17:35] LABS: Glucose - Point of Care 149 mg/dl (70-99)
[2023-11-03] MEDS: DESENEX/MITRAZOL/ZEASORB 1 APPLIC TOPICAL (21:18)
[2023-11-03] MEDS: FLOMAX 0.8 MG PO (21:19)
[2023-11-03 21:38] LABS: Glucose - Point of Care 115 mg/dl (70-99)
--- NOTE | 2023-11-03 22:20 | RESPNOTE ---
PT refused to go on his BIPAP as ordered HS, will attempt placement again tomorrow night.
--- NOTE | 2023-11-03 22:58 | PTCARENOTE ---
patient's approached nurses station and expressed concern and anxeity about the patients treatment. She stated 'she does not trust the doctors and staff at [facility]'. Educated patient's that we are doing everything we can to
care for the patient and that we are waiting on the transfer to [facility] and once there is a bed available the patient will be transferred. At 21:45 I explained to the patient that there is wound care ordered on his right leg and the patient
and became very anxious, concerned and apprehensive about RNs performing wound care, stating 'wound care specialists should be doing that and not regular nurses' I explained to them that this order of wound care was in our scope of practice and
also that they can refuse care and we will not perform care they do not wish to have. Patient's stated 'I would not touch him if I were you, because you don't want to be involved in what is coming'. Wound care was then refused and not given.
Patient expressed the need to have a bowl movement but was experiencing anxiety about using the bedside commode and bedpan since patient is not able to walk to the bathroom. I educated patient on the process of using both the bedside commode and
bedpan as well as the need to have bowl movements since the patients last bowl movement was 5 days prior.
[2023-11-04] VITALS (9 sets, daily range): BP systolic 114–146; BP diastolic 57–123; BMI 42.5
[2023-11-04] MEDS: PENICILLIN 110 UNITS IV ×5 (03:33→19:23)
[2023-11-04] MEDS: DILAUDID 1 MG IV ×8 (03:33→21:28)
[2023-11-04 04:23] LABS: Hematocrit 29.1 % (39.0-52.0); Hemoglobin 9.7 g/dL (13.0-18.0); Mean Corp Hgb Conc. 33.3 g/dL (33.0-37.0); Mean Corpuscular Hgb 30.4 pg (27.0-31.0); Mean Corpuscular Volume 91.2 fL (80.0-94.0); Mean Platelet Volume 9.5 fL (7.4-10.4); Platelet Count 368 10^3/uL (130-400); Red Blood Cell Count 3.19 10^6/uL (4.70-6.10); Red Cell Dist. Width 14.8 % (11.5-14.5); White Blood Cell Count 15.5 10^3/uL (4.8-10.8)
[2023-11-04 04:43] LABS: ALT (SGPT) 59 U/L (0-50); AST (SGOT) 128 U/L (17-59); Albumin 2.8 g/dl (3.5-5.0); Alkaline Phosphatase 178 U/L (38-126); Blood Urea Nitrogen 37 mg/dl (9-20); Calcium 8.2 mg/dl (8.4-10.2); Carbon Dioxide 25 mmol/L (22-30); Chloride 99 mmol/L (98-107); Estimated Creatinine Clearance 83 ml/min; Glucose 102 mg/dl (70-99); Potassium 4.3 mmol/L (3.5-5.1); Sodium 132 mmol/L (135-145); Total Bilirubin 0.7 mg/dl (0.2-1.3); Total Protein 5.9 g/dl (6.3-8.2); eGFR 57.07
[2023-11-04 05:01] LABS: % Basophils 0.6 % (0-2); % Eosinophils 1.2 % (0-6); % Immature Granulocytes 9.2 % (0-0.5); % Lymphocytes 14.7 % (20.5-51.1); % Monocytes 7.7 % (1.7-9.3); % Neutrophils 66.6 % (42.2-75.2); Absolute Basophils 0.1 10^3/uL (0-0.2); Absolute Eosinophils 0.2 10^3/uL (0-0.7); Absolute Immature Granulocytes 1.4 10^3/uL (0-0.05); Absolute Lymphocytes 2.3 10^3/uL (1.2-3.4); Absolute Monocytes 1.2 10^3/uL (0.1-0.6); Absolute Neutrophils 10.3 10^3/uL (1.4-6.5); Nucleated Red Blood Cells % 0 % (-)
[2023-11-04] MEDS: ROXICODONE 5 MG PO ×2 (07:21→13:22)
[2023-11-04] MEDS: ProAmatine 10 MG PO ×3 (07:21→16:59)
[2023-11-04] MEDS: NEURONTIN 300 MG PO ×2 (07:21→19:22)
[2023-11-04] MEDS: SENOKOT-S 1 TABLET PO (07:22)
[2023-11-04] MEDS: MIRALAX 17 GRAMS PO (07:22)
[2023-11-04] MEDS: HEPARIN 5000 UNITS SC ×2 (07:35→15:47)
[2023-11-04] MEDS: MS CONTIN (EXTENDED RELEASE) 30 MG PO ×2 (08:06→19:21)
[2023-11-04] MEDS: DESENEX/MITRAZOL/ZEASORB 1 APPLIC TOPICAL ×2 (08:06→20:48)
--- NOTE | 2023-11-04 08:21 | W.PN.HOSP.TC ---
Addendum entered and electronically signed by Jl Forbes DO 11/04/23 09:03:
Correction: Not necrotizing fasciitis. This is necrotizing skin and soft tissue infection of right lower extremity. Discussed with ID service.
Original Note:
Today's Communication/Plan
-
Doppler ultrasound right lower extremity
Transfer to [facility] when bed available
Assessment / Plan
Assessment / Plan
Gen-AAOx3, mild chills, acutely ill, morbid obesity
HEENT-NC, AT, anicteric, clear oral mm
Neck-supple
CV-reg, no M, +S1/S2
Lungs-clear B/L
Abd-soft, NT, ND
Ext-diffuse right lower extremity edema, Sudhakar wrap to right foot
Musculoskeletal-no cyanosis, clubbing
Skin-warm and dry
Neuro-grossly non-focal
Psych-calm, cooperative
Septic shock -due to right foot necrotizing fasciitis. Underwent excisional debridement October 29, second incision and drainage performed November 01. Wound culture shows strep pyogenes. Continue antibiotics per ID. Blood cultures negative so far.
Off IV vasopressors. Blood pressure improved on midodrine 10 mg 3 times daily. WBCs trending down. Afebrile.
Check Doppler ultrasound right lower extremity, rule out DVT.
GIORGIO -due to septic shock, ongoing hypotension. Vasopressors discontinued 10/31 morning. Creatinine coming down, 1.5, renal function improving with improvement in blood pressure. Urinary retention improved.
Hyponatremia -stable at 132.
Hypokalemia -resolved.
Normocytic anemia -unknown acuity or etiology. No evidence of hemolysis. Monitor for now. Baseline unknown.
Acute nontraumatic rhabdomyolysis -CPK improved. Suspect due to necrotizing fasciitis.
Troponin elevation -suspect acute nonischemic myocardial injury due to critical illness, septic shock.
Impaired fasting glucose -hemoglobin A1c 6.3%. Weight loss is the gan. Glucose 102 this morning, off Lantus. Change aspart scale to low resistance.
Essential hypertension -hold antihypertensives for shock.
Chronic low back pain/chronic opiate dependence -he is on MS Contin 30 mg every 12 hours [id number] and oxycodone with acetaminophen every 6 hours as needed at home for chronic back pain. Continue IV Dilaudid as needed. Patient currently
complaining of significant right lower extremity pain due to infection. Hold off on NSAIDs given renal insufficiency.
Hx nephrolithiasis -history of stenting, nephrostomy in the past.
Diverticulosis -noted on abdominal CT.
Possible mild chronic T8/T9 partial vertebral compression fractures -noted on CT.
ARABELLA -not on CPAP due to noncompliance, insurance revoked his machine at home. Nursing notes desaturation when sleeping. Refused CPAP last night.
Morbid obesity due to excess calories
Full code
Dispo -he has been accepted as a transfer to the [facility]. Awaiting bed availability.
Updated at the bedside.
Anticipated Discharge: Within 24 hours
Subjective/Interval History
-
Date of Service: November 04, 2023
Patient seen and examined. Still with significant pain but looks comfortable overall. at the bedside. Complaining of swelling of right lower extremity.
Objective Data
-
Labs:
Laboratory Results
11/04/23
03:43
WBC 15.5 H
Hgb 9.7 L
Hct 29.1 L
Plt Count 368
Sodium 132 L
Potassium 4.3
Chloride 99
Carbon Dioxide 25
BUN 37 H
Creatinine 1.5 H
Glucose 102 H
Calcium 8.2 L
Total Bilirubin 0.7
AST 128 H
ALT 59 H
Alkaline Phosphatase 178 H
Vital Signs:
Vital Signs
Temp Pulse Resp BP Pulse Ox
97.8 F 98 15 114/57 93
11/04/23 04:40 11/04/23 07:21 11/04/23 06:00 11/04/23 07:21 11/04/23 06:00
I&O
11/03/23 11/04/23 11/05/23
06:59 06:59 06:59
Intake Total 1660 / 1660 630 / 630
Output Total 4900 / 4900 2400 / 2400
Balance -3240 / -3240 -1770 / -1770
Review of Systems
-
History Source: Patient
All other systems: Reviewed and negative
[2023-11-04 08:22] LABS: Glucose - Point of Care 103 mg/dl (70-99)
--- NOTE | 2023-11-04 09:07 | W.PN.ID1 ---
Date of Service
Date of Service: November 04, 2023
Today's Communication
Continue PCNG.
Assessment / Plan
48 year old male with history relevant for chronic pain on a relatively high dose of oxycodone, obesity presented 10/28 for severe pain, redness, swelling, tenderness in the RLE progressing over about a week prior to presentation to health care,
initially in shock. Physical exam without crepitus or pain out of proportion to physical findings but with notable swelling and bullae initially. Taken to the OR and found to have necrotizing SSTI due to GAS which was debrided, thankfully without
evidence of fasciitis. Given development of new bullae and subcuticular bleeding in the setting of stopping compression of the distal right leg, patient returned to the OR 11/01 and again without evidence of fasciitis.
Necrotizing SSTI due to GAS, s/p excisional debridement on 10/30/2023, reexploration 11/02
GIORGIO - improving
Prediabetes
Class III Obesity
- appreciate surgery input, pleased to read no evidence of fasciitis on 11/01 exploration
- 10/29 tissue culture of R foot and wound culture of R foot fluid: Group A Strep
- Anaerobic culture prelim neg as expected
- blood cultures x2 are in progress - no growth to date
- Leukocytosis trending down.
- suggest elevation and compression of the leg as tolerated
- continue penicillin g 5 million units IV q4 hours
- follow clinically
-Awaiting transfer to [facility].
Chief Complaint
-: Other (necrotizing SSTI, shock)
Subjective / Review of Systems
Some itching on right leg.
Vital Signs / Physical Exam
Vital Signs
Vital Signs
Temp Pulse Resp BP Pulse Ox
97.8 F 98 15 114/57 93
11/04/23 04:40 11/04/23 07:21 11/04/23 06:00 11/04/23 07:21 11/04/23 06:00
Physical Exam
Constitutional: No Acute Distress and Comfortable
Gastrointestinal: Soft, Non Tender and Non Distended
Wound: Other (RLE dressing in place)
Objective Data
Lab Data
Lab Results
11/04/23 03:43
11/04/23 03:43
ESR 71 mm/hour (0-20) H 10/29/23 23:34
PT 15.3 Sec (11.4-14.6) H 10/29/23 22:06
INR 1.23 10/29/23 22:06
APTT 39.1 Sec (23.4-35.0) H 10/29/23 22:06
Estimated Creat Clear 83 ml/min 11/04/23 03:43
Lactic Acid 1.7 mmol/L (0.7-2.0) 10/30/23 14:00
Total Bilirubin 0.7 mg/dl (0.2-1.3) 11/04/23 03:43
AST 128 U/L (17-59) H 11/04/23 03:43
ALT 59 U/L (0-50) H 11/04/23 03:43
Alkaline Phosphatase 178 U/L (38-126) H 11/04/23 03:43
C-Reactive Protein Cancelled 10/29/23 21:54
Most recent labs reviewed.
Micro Results:
10/30/23 18:12 Wound Culture - Final
Foot - Right Streptococcus pyogenes
Gram Stain - Final
10/30/23 18:12 Anaerobic Culture - Final
Foot - Right NO ANAEROBES ISOLATED
10/29/23 21:04 Blood Culture - Final
Blood/Venous No Growth - Final Report
10/29/23 20:50 Blood Culture - Final
Blood/Venous No Growth - Final Report
10/30/23 18:26 Tissue Culture - Final
Foot - Right Streptococcus pyogenes
Gram Stain - Final
10/30/23 04:06 Urine Culture - Final
Urine NO GROWTH
10/29/23 23:34 MRSA Screen - Final
Nose No Methicillin Resistant Staphylococcus aureus isolated.
Care Review
Plan reviewed with: Physician (Dr. Forbes)
--- NOTE | 2023-11-04 09:20 | W.PN.UPDATE ---
Update Note
Progress Note Update
Courtesy visit. Was made aware that there may be a need for Ortho involvement over the weekend regarding patient's right foot, however that doesn't appear to be the case. Tx per the collective primary team and consultants (Gen surg, ID, etc). More
definitive care awaiting at [place] when bed becomes available and transfer can be arranged. Will follow along peripherally.
--- NOTE | 2023-11-04 09:42 | CM ---
Chart reviewed. Pt for transfer to [facility] when bed available. Transport form and PMNC completed and on unit.
CM will follow to assist with discharge planning if needs or transfer plans change.
[2023-11-04] MEDS: DILAUDID IV (11:09)
[2023-11-04 13:06] LABS: Glucose - Point of Care 119 mg/dl (70-99)
--- NOTE | 2023-11-04 13:10 | W.PN.GS2 ---
Today's Communication / Plan
-
Local wound care
Antibiotics
Assessment / Plan
-
Patient is a 48 yo M (prediabetic with a1c of 6.3) p/w a necrotizing soft tissue infection of RLE POD#5 &#2 s/p incision and debridement of RLE/foot with counterincision as top point or erythema.
Clinically improving with WBC decreasing and though still has some residual erythema and given that his cultures have grown out group A strep
Transfer to [facility] pending bed availability: accpting physician Dr. Kemp of podiatry
Patient and expressing concerns about non surgical and non wound care certified staff changing dressing and declined dressing change last night. Dressing changed by Dr. Loredo and myself today, will change in AM as well.
--Continue ADA diet
--Abx: ID following, appreciate rcs
--Local wound care: WTD gauze with ABD, Kerlix followed by a gentle jon wrap to secure gauze. Non-adherant dressing to skin tears. Elevate the leg as able.
--Will add Santyl for enzymatic debridement. Ideally, would change dressing BID.
--GS will follow.
--OR Monday for debridement if transfer has not yet taken place to [place]
Subjective Data
-
Date of Service: November 04, 2023
Patient seen and examined at bedside with Dr. Loredo. Denies worsening pain. and patient anxious about timing of transfer and wound healing.
Objective Data
-
Intake and Output
11/03/23 11/04/23 11/05/23
06:59 06:59 06:59
Intake Total 1660 / 1660 630 / 630 960 / 960
Output Total 4900 / 4900 2400 / 2400 950 / 950
Balance -3240 / -3240 -1770 / -1770
Intake:
Oral fluids 1440 / 1440 960 / 960
IV piggybacks 220 / 220 630 / 630
Output:
Urine, Voided 4900 / 4900 2400 / 2400 950 / 950
Vital Signs
Temp Pulse Resp BP Pulse Ox
98.8 F 95 14 118/62 97
11/04/23 07:03 11/04/23 12:00 11/04/23 12:00 11/04/23 09:40 11/04/23 09:17
Lab Results
11/04/23 03:43
11/04/23 03:43
Calcium 8.2 mg/dl (8.4-10.2) L 11/04/23 03:43
Phosphorus 4.5 mg/dl (2.5-4.5) 11/02/23 04:22
Magnesium 3.0 mg/dl (1.6-2.3) H 11/02/23 04:22
Total Bilirubin 0.7 mg/dl (0.2-1.3) 11/04/23 03:43
AST 128 U/L (17-59) H 11/04/23 03:43
ALT 59 U/L (0-50) H 11/04/23 03:43
Alkaline Phosphatase 178 U/L (38-126) H 11/04/23 03:43
Total Protein 5.9 g/dl (6.3-8.2) L 11/04/23 03:43
Albumin 2.8 g/dl (3.5-5.0) L 11/04/23 03:43
Physical Exam
-
Awake, Alert, no distress
CHEST: Unlabored breathing on RA
ABDOMEN: Soft, Non-Tender, Non-Distended
RLE dorsal lateral wound with indurated and edematous soft tissue, viable muscle, surrounding ecchymosis and ischemia of the skin, no worsening erythema, counter incision clean, no troy purulence, edema, palpable pulse
[2023-11-04 14:10] LABS: Glucose - Point of Care 106 mg/dl (70-99)
[2023-11-04] MEDS: ROXICODONE 10 MG PO ×2 (15:46→21:28)
[2023-11-04 16:52] LABS: Glucose - Point of Care 91 mg/dl (70-99)
--- NOTE | 2023-11-04 17:46 | PTCARENOTE ---
Assumed care of Pt at shift change. present at bedside. Pt and upset concerning status of [facility] transfer and wound care - care plan reviewed and education provided. Spoke with [facility] transfer center, no new update on time - Pt and
informed. General Surgery rounded on Pt to perform wound care. Pt pleased with care provided. Difficult controlling pain level following wound care; s/w hospitalist - increase in Es dose provided. Will continue to monitor and assess.
[2023-11-04] MEDS: FLOMAX 0.8 MG PO (19:22)
[2023-11-04] MEDS: SENOKOT-S PO (19:22)
--- NOTE | 2023-11-04 21:14 | PTCARENOTE ---
[facility]ed to call [facility] for report x2 with no answer.s
--- NOTE | 2023-11-04 21:45 | PTCARENOTE ---
Patient picked up via EMS at [id number]. Belongings sent with patient. informed of new room number assigned at [facility].
== END 2023-11-04 21:47 | disposition short-term general hospital (02) | DRG 853 ==
LOC: IMU 23:06
PROVIDERS: Nurse Practitioner Family; Student in an Organized Health Care Education/Training Program; ADMITTING PHYSICIAN Internal Medicine; ATTENDING PHYSICIAN Hospitalist; CONSULT PHYSICIAN Internal Medicine Critical Care Medicine; CONSULT PHYSICIAN Surgery; EMERGENCY PHYSICIAN Emergency Medicine; FAMILY PHYSICIAN Family Medicine; OTHER PHYSICIAN Student in an Organized Health Care Education/Training Program
PROC: 0JBQ0ZZ Excision of Right Foot Subcutaneous Tissue and Fascia, Open Approach (ICD-10-PCS; 2023-10-30)
PROC: 0J9Q0ZZ Drainage of Right Foot Subcutaneous Tissue and Fascia, Open Approach (ICD-10-PCS; 2023-11-02)
DX: A41.9 Sepsis, unspecified organism (principal); J96.01 Acute respiratory failure with hypoxia; M72.6 Necrotizing fasciitis; R65.21 Severe sepsis with septic shock; L03.115 Cellulitis of right lower limb; Z68.41 Body mass index [BMI] 40.0-44.9, adult; N17.9 Acute kidney failure, unspecified; E87.1 Hypo-osmolality and hyponatremia; I5A Non-ischemic myocardial injury (non-traumatic); M62.82 Rhabdomyolysis; E87.20 Acidosis, unspecified; F11.20 Opioid dependence, uncomplicated; E66.01 Morbid (severe) obesity due to excess calories; E87.6 Hypokalemia; M54.2 Cervicalgia; M79.89 Other specified soft tissue disorders; Z11.52 Encounter for screening for COVID-19
CPT/HCPCS: 36597; 36600; 71045; 73590; 73630; 73700; 74176; 80048; 80053; 80202; 80306; 80307; 81003; 81015; 82550; 82805; 82962; 83036; 83605; 83735; 84100; 84443; 84484; 85025; 85027; 85384; 85610; 85652; 85730; 86140; 86618; 87040; 87070; 87075; 87077; 87086; 87176; 87205; 87811; 90471; 90715; 93005; 93971; 94640; 94660; 96365; 96366; 96367; 96375; 97163; 97167; 99291; C1751